=== PATIENT | male | born 1965 | race Caucasian/White ===

== ENCOUNTER 2020-07-05 13:19 | Emergency (ER) | payer MEDICAID, SELFPAY ==
[2020-07-05 13:27] VITALS: BP 115/74; PULSE 74; RESP 16; TEMP 36.7; O2SAT 95; BMI 24.3
--- NOTE | 2020-07-05 14:08 | XRR_ITS ---
PROCEDURE INFORMATION: Exam: XR Chest Exam date and time: 07/05/2020 2:39 PM Age: 55 years old Clinical indication: Chest pain; Type not specified; Patient HX: Chest and back pain for 3 days TECHNIQUE: Imaging protocol: XR of the chest. Views: 1 view. COMPARISON: No relevant prior studies available. FINDINGS: Lungs: Emphysematous change and interstitial prominence. Opacification of the right upper lobe, which can be better evaluated with CT, as clinically indicated. Pleural spaces: No significant pleural effusion. Heart/Mediastinum: No cardiomegaly. Bones/joints: Degenerative change. XR/XR chest 1V portable [id number] IMPRESSION: 1. Opacification of the right upper lobe, which can be better evaluated with CT. 2. Emphysematous change and interstitial prominence.
--- NOTE | 2020-07-05 14:08 | ECG_ITS ---
[facility] Test Date: 2020-07-05 Pat Name: Kevin Omalley Sr Department: Room: Gender: Male Doula: : 1965 Requested By: Desi Cabrera Order Number: [id number] Devin MD: TARIQ STEPHENS Measurements Intervals [place] Rate: 74 P: 75 IL: 154 QRS: 69 QRSD: 84 T: 63 QT: 390 QTc: 433 Interpretive Statements SINUS RHYTHM No previous ECG available for comparison Electronically Signed On 07-05-2020 21:24:03 CDT by TARIQ STEPHENS [id number]
--- NOTE | 2020-07-05 15:41 | W.ED.CHESTPA ---
HPI - Chest Pain General: Chief Complaint: Chest Pain Stated Complaint: NEURO SYMPTOMS X 1 WK:CP, FOGGY HEAD, Time Seen by Provider: 07/05/20 15:32 History of Present Illness: HPI narrative: 55-year-old male presents emergency room complaining of chest discomfort and feeling like he is in a fog for the last week. He states he has chest discomfort whenever he exerts himself that usually resolves within a few minutes of resting will recur again if he has any exertion this been going on for a week he has some associated shortness of breath no radiation into the neck or arms. MD complaint: chest heaviness and chest discomfort Pertinent past history: other (Hypertension) Onset (ago): week(s) (1) Timing of current episode: episodic Prior episodes: Yes Onset: during exertion Pain location: substernal and left chest Pain radiation: none Severity: moderate Quality: heaviness Relieving factors: nothing Exacerbating factors: nothing Context: recent illness Associated symptoms: Reports dyspnea; Deny abdominal pain, diaphoresis, fever(s), leg edema, nausea, palpitations, sense of impending doom, syncope or vomiting Treatment prior to arrival: aspirin Review of Systems Const: Denies: fever(s) or diaphoresis ENMT: Denies: throat pain, ear or mastoid pain, nasal discharge or nasal congestion Card: Denies: palpitations or syncope Resp: Reports: dyspnea GI: Denies: abdominal pain, nausea or vomiting : Denies: flank pain, dysuria, urinary frequency or urinary urgency Skin/Breast: Denies: rash or pruritus Physical Exam Const: COMMON NORMALS: average body habitus, patient oriented x3 and alert GENERAL APPEARANCE: cooperative, comfortable, well kempt and well developed NUTRITIONAL APPEARANCE: obese ORIENTATION/CONSCIOUSNESS: Yes awake, Yes oriented to person and Yes oriented to place HENMT: COMMON NORMALS: normocephalic, atraumatic, EAC's normal, TM's normal bilaterally, Normal external nose present, moist oral mucous membranes and oropharynx normal HEAD & SCALP: normocephalic and atraumatic NOSE: Normal external nose present EXTERNAL AUDITORY CANAL: EAC's normal TYMPANIC MEMBRANE: TM's normal bilaterally Eye: COMMON NORMALS: Equal, round and reactive pupils present, EOMs intact bilaterally, conjunctivae normal and no scleral icterus CONJUNCTIVA: Yes conjunctivae normal PUPIL: Yes Equal, round and reactive pupils present Neck/C-Spine: COMMON NORMALS: no meningeal signs Resp: COMMON NORMALS: normal respiratory effort, No retractions, No use of accessory muscles and clear to auscultation bilaterally AUSCULTATION: clear to auscultation bilaterally Cardio: COMMON NORMALS: regular rate and regular rhythm RATE: regular rate RHYTHM: regular rhythm HEART SOUNDS: no murmurs GI: COMMON NORMALS: Normal to inspection, nondistended, normoactive bowel sounds present, Soft to palpation and No hepatosplenomegaly present PALPATION: Yes Soft to palpation and Yes No hepatosplenomegaly present : COMMON NORMALS: Yes no CVA tenderness BLADDER/KIDNEY EXAM: Yes no CVA tenderness Back/Pelvis: COMMON NORMALS: no CVA tenderness LUMBAR SPINE/LOWER BACK: Yes normal to inspection Extremity: COMMON NORMALS: no clubbing, cyanosis or edema, no calf tenderness and no pedal edema Neuro: COMMON NORMALS: patient oriented x3 SENSORIUM/ORIENTATION: Yes alert, Yes oriented to person and Yes oriented to place MENINGEAL SIGNS: Yes no meningeal signs Psych: APPEARANCE: Yes well kempt Skin: COMMON NORMALS: no rashes or lesions noted and turgor normal GENERAL SKIN EXAM: no rashes or lesions noted and turgor normal Course Vital Signs: Vital signs: Vital Signs Temperature 98.1 F 07/05/20 13:27 Pulse Rate 66 07/05/20 18:11 Respiratory Rate 16 07/05/20 18:11 Blood Pressure 109/85 07/05/20 18:11 Pulse Oximetry 96 07/05/20 18:11 MDM - Chest Pain MDM Narrative: Medical decision making narrative: Reviewed the findings with the patient. Patient has right upper lobe mass causing what appears to be an obstructive pneumonia. Sats are good. He is not septic in appearance his white count is mildly elevated. We will start him on doxycycline Medrol Dosepak also encouraged him to use albuterol inhaler as needed. We will have case management get him set up to see pulmonology as soon as they are able. At the time of discharge noted that the albuterol was not on his prescription list will call that in for him. Lab Data: Labs: Lab Results 07/05/20 07/05/20 07/05/20 Range/Units 16:26 16:26 16:26 WBC 11.5 H (4.0-10.0) 10^3/ uL RBC 4.41 (4.1-5.3) 10^6/u L Hgb 11.7 (11.7-16.6) g/dL Hct 36.8 L (42.0-52.0) % MCV 83.4 (80-94) fL MCH 26.5 L (28.0-34.0) pg MCHC 31.8 (30.0-36.0) g/dL RDW 13.6 (12.1-15.1) % Plt Count 517 H (130-400) 10^3/c mm MPV 10.1 (7.4-10.4) fL Neut % (Auto) 69.9 % Lymph % (Auto) 19.6 % Dixon % (Auto) 7.8 % Eos % (Auto) 1.8 % Baso % (Auto) 0.6 % Neut # (Auto) 8.04 H (1.8-7.7) 10^3/u L Lymph # (Auto) 2.3 (0.8-4.8) 10^3/u L Dixon # (Auto) 0.9 (0.2-0.9) 10^3/u L Eos # (Auto) 0.2 (0.0-0.8) 10^3/u L Baso # (Auto) 0.1 (0.0-0.1) 10^3/u L Nucleated RBC % (a uto) 0 % Nucleated RBCs # 0.0 /100WBC Sodium 136 (136-145) mmol/L Potassium 4.0 (3.5-5.1) mmol/L Chloride 99 (98-107) mmol/L Carbon Dioxide 26 (22-29) mmol/L Anion Gap 15.0 (5-19) BUN 10 (6-20) mg/dL Creatinine 0.8 (0.7-1.2) mg/dL GFR Calculation 99.6 (90-130) mL/min Glucose 109 (65-115) mg/dL Calculated Osmolal ity 282 L (285-295) mOsm/k g Calcium 8.5 (8.5-10.5) mg/dL Total Bilirubin 0.3 (0.15-1.2) mg/dL AST 19 (0-40) U/L ALT 12 (0-41) U/L Alkaline Phosphata se 123 (40-130) IU/L Troponin T Baselin e 12 (0-15) ng/L Total Protein 7.4 (6.6-8.7) g/dL Albumin 3.2 L (3.5-5.2) g/dL Globulin 4.2 (1.3-4.6) g/dL Discharge Plan Discharge Patient Disposition: Home Clinical Impression: Lung mass, Obstructive pneumonia Condition: Stable Prescriptions: New doxycycline hyclate 100 mg capsule 100 mg PO BID 10 Days Qty: 20 RF: 0 Medrol (Abdirahman) 4 mg tablets,dose pack See Rx Instructions .ROUTE .COMPLEX Qty: 21 RF: 0 No Action losartan 50 mg Tablet 50 mg PO DAILY@1999 RF: 0 cetirizine 10 mg Tablet 10 mg PO DAILY RF: 0 metoprolol tartrate 100 mg Tablet 100 mg PO BID@ RF: 0 methadone 10 mg Tablet 10 mg PO BID@ RF: 0 isosorbide mononitrate 30 mg Tablet Extended Release 24 Hr 15 mg PO DAILY@ RF: 0 simvastatin 40 mg Tablet 40 mg PO BEDTIME@1999 RF: 0 ibuprofen 200 mg Tablet 600 mg PO BID PRN (Reason: Pain) RF: 0 aspirin 81 mg Tablet,Chewable 81 mg PO DAILY@ RF: 0 omeprazole 20 mg Tablet,Delayed Release (Dr/Ec) 20 mg PO BID@ RF: 0 Discharge Orders: Discharge ED (Routine); Ordered 07/05/20 Ordered By: Reginald Rust Referrals: Jv Robins MD [Primary Care Provider] - Discharge Diet: Usual diet Discharge Activity: Resume usual activity Patient Instructions: Opioid Safety Activity Restrictions/Additional Instructions: Case management will call to make arrangements for you to see 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
--- NOTE | 2020-07-05 16:03 | CTR_ITS ---
PROCEDURE INFORMATION: Exam: CTA Chest With Contrast Exam date and time: 07/05/2020 4:21 PM Age: 55 years old Clinical indication: Patient HX: Chest pain radiating to back x 2 days. SOB; Additional info: Dyspnea TECHNIQUE: Imaging protocol: Computed tomographic angiography of the chest with contrast. 3D rendering (Not supervised by radiologist): MIP and/or 3D reconstructed images were created by the technologist. Total images: 905 Radiation optimization: All CT scans at this facility use at least one of these dose optimization techniques: automated exposure control; mA and/or kV adjustment per patient size (includes targeted exams where dose is matched to clinical indication); or iterative reconstruction. Contrast material: OMNI 350; Contrast volume: 81 ml; Contrast route: INTRAVENOUS (IV); COMPARISON: CR XR chest 1V portable [id number] 07/05/2020 2:23 PM RADIATION DOSE METRICS: Total DLP (mGy-cm): 622.34 FINDINGS: Pulmonary arteries: No visible evidence of pulmonary embolism/pulmonary arterial thrombus. Aorta: The thoracic aorta is nonaneurysmal. Mild arteriosclerosis. Lungs: Examination reveals a large right upper lobe bulky tumor mass involving primarily the apical and posterior segments dimensions 13 cm x 10.4 cm x 11.9 cm. Surrounding peritumoral infiltrate right upper lobe with evidence of lymphangitic metastasis. Minimal involvement medial segment right middle lobe. Two subcentimeter hematogenous metastatic pulmonary nodules left lower lobe. Minimal peripheral acinar emphysema. Occlusion of the right upper lobe bronchus at its origin. Complete occlusion of the apical and posterior segment upper lobe pulmonary arteries secondary to tumor mass effect or direct invasion. Tumor surrounds the right mainstem bronchus and results in partial stenosis. Pleural spaces: Scant right pleural effusion most likely malignant. Heart: No cardiomegaly. No pericardial effusion. No visible coronary artery disease. Lymph nodes: Mediastinal and right hilar tumor lymphadenopathy. Subcarinal tumor lymphadenopathy measures 46 mm x 37 mm x 39 mm. Dominant anterior mediastinal tumor lymph node confluence measures 33 mm x 20 mm x 31 mm. Direct tumor invasion of the right supper hilum. Dominant right infrahilar tumor lymphadenopathy confluence measures 26 mm x 18 mm x 20 mm. Spleen: Rare calcified splenic granuloma of antecedent disease. Adrenal glands: Left adrenal nodule measuring 19 mm x 14 mm most likely metastatic. Right adrenal gland unremarkable. Bones/joints: No visible active or acute osseous pathology. No visible osteolytic or osteoblastic metastasis within the field of view. Soft tissues: Unremarkable. Other findings: Calcified granulomas of antecedent disease. CT/CT angio chest PE protcl [id number] IMPRESSION: 1. No visible evidence of pulmonary embolism/pulmonary arterial thrombus. 2. Examination reveals a large right upper lobe bulky tumor mass involving primarily the apical and posterior segments dimensions 13 cm x 10.4 cm x 11.9 cm. Surrounding peritumoral infiltrate right upper lobe with evidence of lymphangitic metastasis. Details in text above. 3. Mediastinal and right hilar tumor lymphadenopathy. 4. Evidence of left lower lobe hematogenous metastasis. 5. Occlusion of the right upper lobe bronchus at its origin. 6. Complete occlusion of the apical and posterior segment upper lobe pulmonary arteries secondary to tumor mass effect or direct invasion. 7. Tumor surrounds the right mainstem bronchus and results in partial stenosis. 8. Scant right pleural effusion most likely malignant. 9. Left adrenal nodule measuring 19 mm x 14 mm most likely metastatic. Radiation Dose CTDIVOL = (mGy): DLP = 622.34 (mGy-cm)
[2020-07-05 16:29] VITALS: BP 114/79; PULSE 72; RESP 22; O2SAT 95
[2020-07-05 16:33] LABS: Basophils # 0.1 10^3/uL (0.0-0.1); Basophils % 0.6 %; Eosinophils # 0.2 10^3/uL (0.0-0.8); Eosinophils % 1.8 %; Hematocrit 36.8 % (42.0-52.0); Hemoglobin 11.7 g/dL (11.7-16.6); Lymphocytes # 2.3 10^3/uL (0.8-4.8); Lymphocytes % 19.6 %; Mean Corpuscular HGB Conc 31.8 g/dL (30.0-36.0); Mean Corpuscular Hemoglobin 26.5 pg (28.0-34.0); Mean Corpuscular Volume 83.4 fL (80-94); Mean Platelet Volume 10.1 fL (7.4-10.4); Monocytes # 0.9 10^3/uL (0.2-0.9); Monocytes % 7.8 %; Neutrophils # 8.04 10^3/uL (1.8-7.7); Neutrophils % 69.9 %; Nucleated Red Blood Cells % 0 %; Platelet Count 517 10^3/cmm (130-400); Red Blood Count 4.41 10^6/uL (4.1-5.3); Red Cell Distribution Width 13.6 % (12.1-15.1); White Blood Count 11.5 10^3/uL (4.0-10.0)
[2020-07-05] MEDS: iohexol 350 mg/mL 100 mL Btl IV (17:14)
[2020-07-05 17:31] LABS: Alanine Aminotransferase 12 U/L (0-41); Albumin Level 3.2 g/dL (3.5-5.2); Alkaline Phosphatase 123 IU/L (40-130); Aspartate Amino Transferase 19 U/L (0-40); Blood Urea Nitrogen 10 mg/dL (6-20); Calcium 8.5 mg/dL (8.5-10.5); Carbon Dioxide 26 mmol/L (22-29); Chloride 99 mmol/L (98-107); Globulin 4.2 g/dL (1.3-4.6); Glomerular Filtration Rate 99.6 mL/min (90-130); Glucose 109 mg/dL (65-115); Osmolality Calculated 282 mOsm/kg (285-295); Sodium 136 mmol/L (136-145); Total Bilirubin 0.3 mg/dL (0.15-1.2); Total Protein 7.4 g/dL (6.6-8.7)
[2020-07-05 17:32] LABS: Troponin(5th) Baseline 12 ng/L (0-15)
[2020-07-05 18:11] VITALS: BP 109/85; PULSE 66; RESP 16; O2SAT 96
--- NOTE | 2020-07-05 20:08 | ECG_ITS ---
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
--- NOTE | 2020-07-06 07:49 | PC.NURSE ---
prescription called into [facility].
--- NOTE | 2020-07-06 10:34 | DCPLANNER ---
Addendum entered by Hetal Nieto 07/07/20 09:39: health spa manager called patients life partner, Hayley, gave her the appointment information for patient. Original Note: health spa manager had message to schedule a follow up appointment for patient with pulmonology for lung mass with mets on CT. health spa manager called heart care, spoke with [place], gave clinic patients information. A follow up appointment was scheduled for Thursday, July 16, 2020 at 9:[address] Olivier. health spa manager called phone number [phone], this number is not accepting calls at this time. health spa manager called phone number [phone], this is the phone number to Thai Brown, left a voicemail for patient to return case management director phone call. health spa manager then called phone number [phone], number is the number for patients kj hawkins, left a voicemail for patient to return case management director phone call.
--- NOTE | 2020-08-06 11:21 | DCPLANNER ---
Patient had a follow up appointment scheduled for 07.16.[address] Olivier at Pulmonology - patient did attend appointment.
== END 2020-07-05 18:18 | disposition home or self-care (01) ==
PROVIDERS: Physician Assistant; Emergency Provider Family Medicine; PCP Family Medicine
DX: R91.8 Other nonspecific abnormal finding of lung field (principal); J18.8 Other pneumonia, unspecified organism; Z79.82 Long term (current) use of aspirin
CPT/HCPCS: 71045; 71275; 80053; 84484; 85025; 93005; 99283; Q9967

== ENCOUNTER → 2020-07-16 09:37 | Outpatient (BNVA) | payer OTHER, SELFPAY | PROVIDERS: PCP Family Medicine; Visit Provider Internal Medicine Critical Care Medicine | DX: Z01.812 Encounter for preprocedural laboratory examination (principal); Z20.822 Contact with and (suspected) exposure to COVID-19 | CPT/HCPCS: 87635 ==

== ENCOUNTER 2020-07-20 07:34 | Day surgery (SDC) | payer MEDICAID, SELFPAY ==
[2020-07-19 09:50] VITALS: BMI 25.1
[2020-07-20] VITALS (8 sets, daily range): BP systolic 97–144; BP diastolic 65–108; PULSE 77–90; RESP 18–20; TEMP 36.4–36.9; O2SAT 97–99
[2020-07-20] MEDS: sodium chloride 0.9% 1,000 ML 30 ML IV (08:30)
--- NOTE | 2020-07-20 09:12 | W.PM.OPSUD ---
Surgery/Procedure H&P Update DATE OF PROCEDURE: July 20, 2020 DATE H&P PERFORMED: 07/16/20 H&P UPDATE INFORMATION: I have reviewed H&P completed within last 30 days, I have examined patient prior to procedure and No changes to prior documentation PREOP DIAGNOSIS: Lung cancer PLANNED PROCEDURE: Bronchoscopy with inspection of the airway, possible endobronchial biopsy, bronchoalveolar lavage, endobronchial sound guided transbronchial needle aspiration of lymph nodes and control of bleeding. Operation Date: 07/20/20 09:10 Proposed Procedures p Ebus [id number] r91.1(Not Applicable) - Biplab MD Soy
--- NOTE | 2020-07-20 09:26 | ANES.PREANE2 ---
Pre-Anesthetic Assessment Pre-Anesthetic Assessment: Height/Weight: Height 1.75 m Weight 77.111 kg Temp Pulse Resp BP Pulse Ox 97.6 F 77 18 119/79 97 07/20/20 08:18 07/20/20 08:18 07/20/20 08:18 07/20/20 08:18 07/20/20 08:18 Preop Diagnosis: Lung cancer Proposed Procedure: Operation Date: 07/20/20 09:10 Proposed Procedures p Ebus 16132 [id number] r91.1(Not Applicable) - Veronica Olivier MD Was Beta Prasanna taken within 24 hours: Yes Last intake: Intake Last Liquid Date 07/19/20 Last Liquid Time 20:00 Last Solid Date 07/19/20 Last Solid Time 20:00 Social: Social History: Tobacco and No alcohol Packs per day: 1 for 40 years Exam: Pre-Anes Outpt Exam: alert, oriented x 3, clear to auscultation bilaterally and regular rate & rhythm Airway: Submandibular: WNL Cervical ROM: WNL MP: 2 Additional comments: extremely poor dentition History/ROS: No significant history except as noted and No significant complaints Pulmonary: Pulmonary: COPD, Cough, QIU and SOB CV/HEM: CV/HEM: HTN : : None reported Hepatic: Hepatic: None reported GI: GI: None reported Metabolic: Metabolic: None reported Musc/skel: Musc/skel: None reported Neuropsych: Neuropsych: CVA Anesthetic Plan: ASA status: 4 Anesthesia: Anesthesia Evaluation and General Risk of > 500 ml blood loss (7ml/kg in children): No PFSH Anesthesia PFSH: Surgical History No significant past surgical history Family History Father Heart attack Brother Heart attack Social History Smoking and tobacco status: current every day smoker cigarettes Packs smoked per day: 1 Years cigarettes smoked: 40 Quit status (tobacco): considering quitting Second hand smoke exposure: Yes Smoking risk assessment/counseling performed?: Yes Alcohol intake: never Desire information about substance/drug rehabilitation?: No Lives independently: Yes Household members: friend(s) Marital status: Single service: No Current occupational status: employed Pets and animals: Yes History of recent travel: No Current gender identity: Male Data Anesthesia Cardiac Studies: No Data to Display
[2020-07-20] MEDS: lidocaine 1% INJ 20 mL XX (10:30)
--- NOTE | 2020-07-20 11:18 | PM.OP ---
Operative Report Date of procedure: July 20, 2020 Pre-op Diagnosis: Lung cancer Post-op diagnosis: same Brief History: This is a 55-year-old gentleman with recently identified large right upper lobe lung mass with mediastinal hilar lymphadenopathy coming in for bronchoscopic evaluation for lung cancer. Procedure: Name of the procedure: Bronchoscopy with inspection of the airway, possible bronchoalveolar lavage, endobronchial biopsies, endobronchial ultrasound-guided transbronchial needle aspiration of lymph nodes and control of bleeding. Indication: Right-sided lung mass Anesthesia: General anesthesia. Local anesthesia: The josefina in the right and left mainstem bronchi were anesthetized with 1% lidocaine, 3 mL. Description of the procedure: The procedure was explained to the patient and the consent was obtained. The patient was brought to the OR. The patient underwent endotracheal intubation for general anesthesia. Following induction of general anesthesia, the bronchoscope was advanced through the ET tube. The lower trachea appeared to be normal. The josefina was splayed. The josefina, the right and left mainstem bronchi are anesthetized with 1% lidocaine. In a systematic manner bilateral bronchial tree was then examined. The bronchoscope was advanced into the left mainstem bronchus. The left upper lobe, lingula and left lower lobe bronchi were examined up to the third subsegmental level and no abnormalities were identified. There is no endobronchial lesion, active bleeding or mucous plug. The bronchoscope was then introduced into the right mainstem bronchus. The entrance to the right upper lobe bronchus was completely occluded. Irregular mucosa was noted. The right middle lobe and lower lobe bronchi were examined up to third subsegmental level and no abnormalities were identified. Endobronchial biopsies were obtained from the occluded right upper lobe bronchus area with irregularity in the mucous membrane. Multiple samples were obtained. The endobronchial ultrasound was introduced through the ET tube. Large right hilar mass was identified. There was significant mediastinal lymphadenopathy. Fine-needle aspiration was obtained from station 7 lymph nodes. Samples: 1. The endobronchial biopsies are sent for histopathology. 2. The transbronchial needle aspiration of station 7 lymph node was sent for histopathology. Complications: There was no immediate complications.
--- NOTE | 2020-07-20 14:31 | ANE.PACU2 ---
Inpatient post-anesthesia follow up: Airway intact: Yes Vital signs: Temperature 97.6 F Pulse Rate 82 Respiratory Rate 20 Blood Pressure 117/86 Pulse Oximetry 98 Oxygen Delivery Me thod Room Air Oxygen Flow Rate 6 Fraction of Inspir ed Oxygen Hydration adequate: Yes Nausea and vomiting: No Pain level: 2 Mental status: Baseline
== END 2020-07-20 11:55 | disposition home or self-care (01) ==
PROVIDERS: PCP Family Medicine; Visit Provider Internal Medicine Critical Care Medicine
PROC: BB4BZZZ Ultrasonography of Pleura (ICD-10-PCS; principal; 2020-07-20 09:00)
PROC: 0BJ08ZZ Inspection of Tracheobronchial Tree, Via Natural or Artificial Opening Endoscopic (ICD-10-PCS; CPT 31622; 2020-07-20 09:00)
DX: C34.90 Malignant neoplasm of unspecified part of unspecified bronchus or lung (principal); J44.9 Chronic obstructive pulmonary disease, unspecified; I10 Essential (primary) hypertension; Z09 Encounter for follow-up examination after completed treatment for conditions other than malignant neoplasm; Z86.73 Personal history of transient ischemic attack (TIA), and cerebral infarction without residual deficits; F17.210 Nicotine dependence, cigarettes, uncomplicated
CPT/HCPCS: 31625; 31652; 80500; 88305; 96360; 96361; J0330; J1100; J2704; J3010; J7030

== ENCOUNTER 2020-07-26 08:51 | Outpatient (CLI) | payer MEDICAID, SELFPAY ==
--- NOTE | 2020-07-26 16:50 | ONC CON_ITS ---
Dr. Lunsford New Patient Note Patient: Kevin Omalley Sr Unit #: [id number]: 1965 Dicatated By: Refugio Lunsford M.D.Date of Visit: July 26, 2020 Onc MED New Patient/Consult Referring Physician: Dr. TENNILLE ALVARADO M.D. History of Present Illness: ,Mr. Kevin Omalley is a 55-year-old gentleman, with a 20+ year history of heavy smoking still smoke about pack a day, about 30 pound weight loss over the period of 3 months, went to [facility] on July 05, 2020 with progressive dyspnea on exertion right chest discomfort/pain and foggy head-like feeling, patient on methadone for 5 to 8 years for chronic/hip pains and part of evaluation he underwent CTA chest on July 05, 2020 which showed large right upper lobe bulky tumor mass involving primarily apical and posterior segments dimension 13 cm x 10.4 x 11.9 cm. Surrounding peritumoral infiltrate right upper lobe with evidence of lymphangitic spread metastatic disease. Mediastinal and right hilar lymphadenopathy. And 2 subcentimeter hematogenous metastatic pulmonary nodules in the left lower lobe. And left adrenal nodule measuring 19 x 14 mm most likely metastatic., Patient was referred to pulmonology and on July 20, 2020 he underwent bronchoscopy which showed there is a no endobronchial lesion but entrance to the right upper lobe bronchus was completely occluded transbronchial biopsy and lymph node station 7 endoscopic ultrasound guided biopsy was obtained which confirmed non-small cell carcinoma, immunohistochemistry is pending Patient denies alcohol use but used to drink heavily but quit alcohol about 15 years ago. Patient denies any night sweats, denies any dysphagia, denies any right eye weakness, denies any blurred vision or double vision Past Medical History: Mr. Shahram Chan's medical history consists of hypertension. Past Surgical History: Mr. Shahram Chan's surgical/procedural history consists of bronchoscopy. Medications: Aspirin 81 1 Tablet (of 81 mg) Tablet, chewable Oral daily, Isosorbide Mononitrate ER 1 Tablet (of 30 mg) Tablet SR 24 HR Oral daily, Losartan Potassium 1 Tablet (of 50 mg) Oral daily, Methadone HCl 1 Tablet (of 10 mg) Oral b.i.d., Metoprolol Tartrate 1 Tablet (of 100 mg) Oral b.i.d., Omeprazole 1 Capsule (of 20 mg) Capsule Delayed Release Oral b.i.d., Simvastatin 1 Tablet (of 40 mg) Oral daily Allergies: No Known Allergies. Social History: Mr. Shahram Chan is . He is an occasional smoker who has smoked for 41 years. He has no history of drinking. He has indicated exposure to the following products: cigarettes. Family History: There is no documented family history. Review Of Symptoms: Review of Systems is not available for this patient. Vital Signs: Performed on July 26, 2020 10:49: 5, 24.39, 1.95 sq.m, 70 in, 97 %, 80 /min, 18 /min, 106/74 mm(hg), 97.4 F (LOW), and 170.0 lbs (HIGH). Performance Status: 1 - No physically strenuous activity, but ambulatory and able to carry out light or sedentary work (e.g. office work, light house work). (ECOG) Physical Examination: ENMT - No mouth sores, no thrush, no jaundice, Respiratory - Poor air entry otherwise clear, Cardiovascular - Regular rate and rhythm of heart, Abdomen - Soft, bowel sounds present, Extremities - No visible edema. Lab/Imaging: Most recent lab results are not available for this patient. Impression: Non-small cell lung cancer involving right upper lung per bronchoscopy done on July 20, 2020 confirmed non-small cell carcinoma involving right upper lobe and station 7 lymph node, immunohistochemistry is pending CTA chest done on July 05, 2020 showed right upper lobe bulky tumor mass involving apical and posterior segments dimension 13 x 10.4 x 11.9 cm. Surrounding peritumoral infiltrate right upper lobe with evidence of lymphangitic metastatic disease. 2 subcentimeter hematogenous metastatic pulmonary nodules left lower lobe. Mediastinal and right hilar lymphadenopathy, subcarinal tumor lymphadenopathy measuring 4.6 x 3.7 x 3.9 cm. Left adrenal nodule measuring 19 x 14 mm most likely metastatic disease. Chronic smoking over 20 years, still smoking 1 pack a day History of alcohol abuse, quit 15 years ago. Chronic back pain and hip pain, on methadone per PMD Plan: Discussed with patient regarding his disease status, his CTA chest shows bulky disease in the right upper lobe and extensive mediastinal lymphadenopathy and 2 subcentimeter nodules in the left lower lobe and left adrenal mass, concerned about metastatic disease, at this point we will consider staging work-up with CT PET scan and MRI scan of the brain if it confirms metastatic disease then will consider molecular profiling as well as PD-L1 status on the other hand if there is no evidence of metastatic disease, then will consider combined chemoradiation, in the meantime we will request Port-A-Cath placement Patient was advised to quit smoking and was offered any assistance he may need Patient return to clinic after CT PET scan/MRI scan of brain done for further discussion Signed By: Refugio Lunsford M.D. <<Signature on File>>
== END 2020-07-26 08:52 | disposition home or self-care (01) ==
LOC: ONCMED 08:53
PROVIDERS: PCP Family Medicine; Visit Provider Internal Medicine Hematology & Oncology
DX: C34.11 Malignant neoplasm of upper lobe, right bronchus or lung (principal); C79.31 Secondary malignant neoplasm of brain; F17.210 Nicotine dependence, cigarettes, uncomplicated; F10.11 Alcohol abuse, in remission; G89.29 Other chronic pain; M54.5 Low back pain; M25.551 Pain in right hip; M25.552 Pain in left hip; Z79.899 Other long term (current) drug therapy
CPT/HCPCS: 99205

== ENCOUNTER → 2020-07-30 12:47 | Outpatient (BNVA) | payer OTHER, SELFPAY | PROVIDERS: PCP Family Medicine; Visit Provider Surgery | DX: Z01.812 Encounter for preprocedural laboratory examination (principal); Z20.822 Contact with and (suspected) exposure to COVID-19 | CPT/HCPCS: 87635 ==

== ENCOUNTER 2020-08-04 07:06 | Day surgery (SDC) | payer MEDICAID, SELFPAY ==
[2020-08-03 14:00] VITALS: BMI 24.3
[2020-08-04] VITALS (7 sets, daily range): BP systolic 114–143; BP diastolic 80–94; PULSE 64–75; RESP 16–18; TEMP 36.2–36.6; O2SAT 93–100
--- NOTE | 2020-08-04 | SCC_ITS ---
Procedure Done: Placement of PowerPort in the left subclavian vein Fluoroscopic guidance and interpretation for placement of catheter 31.2 seconds of fluoroscopic guidance, for a cumulative dose of 4.45 mGy, was provided to Dr. Aguirre by the radiology department. C-arm images of the chest were saved for the patient's permanent record. [facility]
--- NOTE | 2020-08-04 07:54 | SC_ITS ---
WS: [id number] Exam: C-arm FL for CVA [id number] Date/Time of Exam: 08/04/2020 7:54 AM Reason For Exam: PORT PLACEMENT 2 AP C-arm images of the upper left chest are submitted for evaluation. A left subclavian port has been placed and appears to end in the lower one third of the SVC in good p osition. SC/C-arm FL for CVA [id number] IMPRESSION: 1. Satisfactory placement of left subclavian port which appears to end in the l ower one third of the SVC.
[2020-08-04] MEDS: sodium chloride 0.9% 1,000 ML 30 ML IV (08:05)
--- NOTE | 2020-08-04 08:26 | W.PM.OPSUD ---
Surgery/Procedure H&P Update DATE OF PROCEDURE: August 04, 2020 DATE H&P PERFORMED: 07/30/20 H&P UPDATE INFORMATION: I have reviewed H&P completed within last 30 days, I have examined patient prior to procedure and No changes to prior documentation PREOP DIAGNOSIS: lung cancer PLANNED PROCEDURE: Operation Date: 08/04/20 09:05 Proposed Procedures p Portacath Placement 36297 c34.91(Not Applicable) - Gregory Aguirre MD
--- NOTE | 2020-08-04 08:38 | ANES.PREANE2 ---
Pre-Anesthetic Assessment Pre-Anesthetic Assessment: Height/Weight: Height 1.78 m Weight 77.111 kg Temp Pulse Resp BP Pulse Ox 97.1 F L 70 18 143/94 97 08/04/20 07:52 08/04/20 07:52 08/04/20 07:52 08/04/20 07:52 08/04/20 07:52 Preop Diagnosis: lung cancer Proposed Procedure: Operation Date: 08/04/20 09:05 Proposed Procedures p Portacath Placement 02033 c34.91(Not Applicable) - Gregory Aguirre MD Familial anesthetic complications: none Was Beta Prasanna taken within 24 hours: Yes Was Clonidine taken within 24 hours: N/A Last intake: Intake Last Liquid Date 08/04/20 Last Liquid Time 06:00 Last Solid Date 08/03/20 Last Solid Time 21:00 Social: Social History: Tobacco and No alcohol Exam: Pre-Anes Outpt Exam: alert, oriented x 3, clear to auscultation bilaterally and regular rate & rhythm Airway: Cervical ROM: WNL MP: 3 Dentition: Chipped (multiple broken teeth) Pulmonary: Comments: R lung cancer CV/HEM: CV/HEM: HTN Metabolic: Metabolic: Hyperlipidemia Neuropsych: Neuropsych: 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, some residual R visual field deficit) Anesthetic Plan: ASA status: 3 Anesthesia: MAC Risk of > 500 ml blood loss (7ml/kg in children): No Meds/Allergies Current Medications: Current Medications Generic Name Dose Route Start Last Admin Trade Name Freq PRN Reason Stop Dose Admin Sodium Chloride 1,000 mls @ 30 ml s/hr 08/04/20 07:45 08/04/20 08:05 Sodium Chloride 0.9% IV 08/05/20 07:44 30 mls/hr .Q24H KORTNEY Administration PFSH Anesthesia PFSH: Medical History (Updated 07/30/20 @ 12:18 by Gregory Aguirre MD) Cancer of right lung GERD (gastroesophageal reflux disease) History of TIA (transient ischemic attack) HTN (hypertension) Hyperlipidemia Surgical History (Updated 07/30/20 @ 12:21 by Gregory Aguirre MD) History of lung biopsy 2020 S/P bronchoscopy Family History Father Heart attack Brother Heart attack Social History (Reviewed 07/30/20 @ 11:41 by TIARRA Mac Smoking and tobacco status: current every day smoker cigarettes Packs smoked per day: 1 Years cigarettes smoked: 40 Quit status (tobacco): considering quitting Second hand smoke exposure: Yes Smoking risk assessment/counseling performed?: Yes Alcohol intake: never Desire information about substance/drug rehabilitation?: No Lives independently: Yes Household members: friend(s) Marital status: Single service: No Current occupational status: employed Pets and animals: Yes History of recent travel: No Current gender identity: Male Data Anesthesia Cardiac Studies: No Data to Display
[2020-08-04] MEDS: lidocaine 1% INJ 20 mL INJECTION (09:36)
[2020-08-04] MEDS: heparin, porcine 1,000 unit/mL INJ 10 mL 10000 UNIT INJECTION (09:42)
--- NOTE | 2020-08-04 10:04 | PM.OP ---
Operative Report Date of procedure: August 04, 2020 Pre-op Diagnosis: Right lung cancer Post-op diagnosis: same Procedure Done: Placement of PowerPort in the left subclavian vein Fluoroscopic guidance and interpretation for placement of catheter Pathology: none sent Surgeon: Gregory Aguirre Anesthesia: MAC Condition: stable Disposition: PACU Procedure: The patient was taken to the Operating Room and the chest and neck bilaterally were prepped and draped in a sterile manner after the antibiotic had been administered and shoulder rolls had been placed. A total of 10 mL of 1% lidocaine with 0.5% Marcaine was infiltrated under the clavicle on the left side at the site of the planned entry into the subclavian vein. An introducer needle was then used to access the subclavian vein under the clavicle and after withdrawing blood syringe was removed and a guidewire passed under fluoroscopy into the superior vena cava. The site of the planned port was then marked on the chest and a 15 blade was used to make a 3 cm skin incision this was extended into the subcutaneous tissue using electrocautery and a subcutaneous pocket over the pectoralis fascia was created 2-0 Vicryl suture was used to suture the port to the pectoral fascia in the pocket on 3 sides. The catheter, after having been flushed with hep saline, was attached to the tunneler and a tunnel created between the port site and the subclavian vein entry site. Under fluoroscopy the dilator sheath was passed over the guidewire into the proximal superior vena cava. The inner dilator was removed and the sheath left behind and~ the catheter was introduced through the peel-away sheath with the tip in the superior vena cava. The peel-away sheath was removed. The proximal end of the catheter was cut to the right size and was attached to the port. Using a Jensen needle the port was accessed, it withdrew blood easily and flushed easily. A final 5cc of heparin was used to flush the PowerPort. The subcutaneous tissue was approximated using interrupted 3-0 Vicryl sutures and the skin at the introducer site and the port site was closed using subcuticular running 4-0 Monocryl sutures. Surgical glue was applied and the patient was stable throughout the procedure. Fluoroscopic guidance and interpretation was performed for introduction of the guidewire in the left subclavian vein, passage of dilator and placement of catheter tip in the distal superior vena cava.
--- NOTE | 2020-08-04 10:10 | SUR.PHASEI ---
PT SLEEPS QUIETLY, WITH GOOD RESP EFFORT , NO DISTRESS VSS LT CHEST WITH 2 SITES WITH EXOFIN D/I MONITOR SR NO ECTOPY.
[2020-08-04] MEDS: HYDROcodone-acetaminophen 5-325 mg Tablet 1 TAB PO (10:45)
--- NOTE | 2020-08-04 13:55 | ANE.PACU2 ---
Inpatient post-anesthesia follow up: Airway intact: Yes Vital signs: Temperature 97.1 F Pulse Rate 75 Respiratory Rate 18 Blood Pressure 123/85 Pulse Oximetry 93 Oxygen Delivery Me thod Room Air Oxygen Flow Rate 6 Fraction of Inspir ed Oxygen Hydration adequate: Yes Nausea and vomiting: No Pain level: 2 Mental status: Baseline
== END 2020-08-04 11:05 | disposition home or self-care (01) ==
PROVIDERS: PCP Family Medicine; Visit Provider Surgery
PROC: (CPT 36561; principal; 2020-08-04 08:55)
DX: C34.90 Malignant neoplasm of unspecified part of unspecified bronchus or lung (principal); I10 Essential (primary) hypertension; E78.5 Hyperlipidemia, unspecified; Z86.73 Personal history of transient ischemic attack (TIA), and cerebral infarction without residual deficits; F17.210 Nicotine dependence, cigarettes, uncomplicated
CPT/HCPCS: 36561; 77001; C1788; J0690; J1644; J2704; J3010; J3490; J7030

== ENCOUNTER 2020-08-05 11:43 | Outpatient (CLI) | payer MEDICAID, SELFPAY ==
--- NOTE | 2020-08-05 11:45 | MR_ITS ---
WS: [id number] MRI BRAIN WITH AND WITHOUT CONTRAST HISTORY: BLURRED Vision; lung CA COMPARISON: 05/18/2014 TECHNIQUE: Multiplanar imaging performed through the brain with MultiHance 15 ml's IV. There is a large amount of vasogenic edema throughout the RIGHT cerebrum. Metastatic lesions are pres ent bilaterally. The largest mass centered in the mid RIGHT temporal lobe measures 2.0 x 2.2 x 2.1 cm . Central area of necrosis with thick rim and a large amount of edema. The next largest lesion is tow ards the RIGHT frontal vertex measuring 1.4 x 1.4 x 1.5 cm. There are numerous additional subcentimet er lesions identified. 4 mm anterior RIGHT frontal lobe metastatic site. Possible LEFT basal ganglia 3 mm metastatic site. Medial superior LEFT cerebellar metastatic site measures 6 mm. Indeterminate fo r metastatic lesion in the anterior RIGHT cerebellum measuring 5 mm. Posterior RIGHT cerebellar metas tatic site at 4 mm. There is shift of the midline structures to the LEFT of midline by 6.4 mm. Significant mass effect up on the RIGHT lateral ventricle but no temporal lobe dilatation. Paranasal sinuses: Well aerated with no significant disease. Mastoid air cells: Normal. Calvarium and scalp: Normal. MR/MR head wo/w con [id number] IMPRESSION: 1. Numerous metastatic lesions within the brain. Largest lesions are in the RI GHT temporal and RIGHT frontal lobes. 2. Large amount of vasogenic edema in the RIGHT cerebrum resulting in 6.4 mm o f midline shift to the LEFT. RIGHT lateral ventricle is slitlike but there is n o ventriculomegaly. 3. Additional smaller, subcentimeter metastatic lesions within the brain. Notified Refugio Lunsford MD at 08/05/2020 1:10 PM.
[2020-08-05] MEDS: gadobenate dimeglumine 20 mL vial IV (12:34)
--- NOTE | 2020-08-05 16:57 | N.ONRAD NP_ITS ---
Radiation Oncology New Patient Visit Patient: Kevin Omalley Sr MR#: [id number] : 1965> Age: 55> Sex: Male> Dictated by: Dr. Shadi Wolfe Date of Service: 08/05/2020 Referring Physician(s) : Dr. Lunsford Diagnosis: C34.11 - malignant neoplasm of upper lobe, right bronchus or lung, Diagnosed 07/26/2020 (active). Radiotherapy to date: Summary > No prior radiation therapy. Chief Complaint / History of Present Illness: Stage IV ([id number]) non-small cell carcinoma of the right upper lobe. He underwent bronchoscopy and biopsy confirming this. Staging MRI scan of the brain obtained earlier today revealed significant intracranial metastatic disease. We were asked to see him regarding the role of palliative radiation therapy in his care Mr. Kwong is a 55-year-old chronic smoker . Who presented to the emergency room on July 05, 2020 for shortness of breath and right chest pain as well as mental status changes. 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 He also noted visual changes and occasional headaches. He experienced a 25 pound weight loss over 2-month period. He also noted dropping things with his left hand as well as fatigue and some staggering of his gait. Initial evaluation included a CT scan of the chest on July 05, 2020 which revealed a 13 cm mass in the right upper lobe with some surrounding infiltrate with direct extension into the mediastinum and separate subcarinal adenopathy and was to contralateral left lung nodules and left adrenal nodularity. He underwent bronchoscopy on July 20, 2020 right upper lobe bronchus was completely occluded endobronchial biopsy of lymph node ultrasound-guided biopsy confirmed non-small cell carcinoma. Further studies as pending. MRI of the brain just obtained earlier today revealed the 6 intracranial anterior cerebral and cerebellar metastases with small lesion seen in both cerebellum small central pontine lesion dominant large right temporal lobe lesion measuring 2.2 cm in maximal dimension with significant peritumoral edema effacement of the ventricle. Medications: Aspirin 81, isosorbide Mononitrate ER, losartan Potassium, methadone HCl, metoprolol Tartrate, omeprazole, simvastatin. Allergies: No Known Allergies Medical History: - Hypertension. No history of collagen vascular disease. No previous radiation therapy. Surgical History: Bronchoscopy. Family History: Not obtained Social History: Last screened on 07/26/2020 - Current some day smoker for 41 years. Last screened on 07/26/2020 - Never drank. Patient indicated use of the following products: cigarettes. He is has smoked from age 13 to age 55 up to 2 packs a day. Lives with a girlfriend. His girlfriend is currently under treatment here for non-small cell lung cancer. Current Complaints / Review of Systems: . Vital Signs: Performed on 08/05/2020 3:51 PM Height - 70.00 in, Weight - 168.8 lbs (low), BSA - 1.94 sq.m, BMI - 24.22, Temperature - 97.3 f (low), Pulse - 68 /min, Respiration - 18 /min, O2 Sat - 96 %, Pain - 7, BP - 107/ 70 mm(hg), Performed on 08/05/2020 3:57 PM BMI - 24.22 kg/m2 (high), Height - 70.00 in, Weight - 168.8 lbs, Temperature - 97.3 f, Pulse - 68, Respiration - 18, O2 Sat - 96 %, Pain - 7 and BP - 107/ 70 mm(hg). Physical Exam: Elderly appearing gentleman for his age. H EENT examination revealed few decaying teeth in his mandible. He had no cervical or supraclavicular adenopathy. Lungs were clear with diminished breath sounds on the right no wheezes or rhonchi heart was regular abdominal examination unremarkable. Neurologic exam he was appropriate and oriented gait was slow with no ataxia strength in all extremities were symmetric and complete. Performance Status: Pathology: Primary, c34.11 - malignant neoplasm of upper lobe, right bronchus or lung, Diagnosed 07/26/2020 (active). Lab: Imaging: See HPI PET CT scan obtained on July 31, 2020 revealed a massive right upper lobe mass measuring 12.6 cm in maximal dimension with an SUV of 11.2 FDG +1 cm left lower lobe 7 mm left left lower lobe and another 7 mm left lower lobe nodule representing contralateral metastatic disease there was bulky subcarinal adenopathy left adrenal gland lobe revealed low-grade uptake equivocal for metastatic involvement. Impression: In summary my impression is that of stage IV (T4 N3 M1) non-small cell carcinoma the right upper lobe with bulky primary and significant intracranial metastatic disease at diagnosis. At this time in light of his neurologic symptoms I do recommend initiating steroids at a moderate dose we will now begin dexamethasone 4 mg twice daily to stabilize him over the 3-day weekend. In light of the size and number of the metastatic brain lesions he is best treated with whole brain radiation over a 10-day period. Following this he will return to Dr. Lunsford to address systemic therapy. In the event he has a poor response to systemic treatment or has significant symptomatic progression in the right lung primary palliative radiation to the lung could be considered at anytime in the future as well I discussed the treatable but incurable nature of his presentation. I recommended that he stop smoking as it will assist in his response to treatment. I also discussed the overall need for advanced directives. I recommended that he pursue a conservative approach and ultimately choose to have a no CODE STATUS once he has discussed this with his family. He will now return to Dr. Young on Sunday for simulation followed by 10-day course of whole brain radiation. I discussed this with Dr. Lunsford as well as the patient and his sister. Plan: Signed by: 08/05/2020 4:55:31 PM <<Signature on File>> Time spent with patient: CPT Code: CPT Code:
--- NOTE | 2020-08-06 13:14 | ONC FU_ITS ---
Dr. Lunsford follow up note Patient: Kevin Omalley Sr Unit #: [id number]: 1965 Dicatated By: Refugio Lunsford M.D.Date of Visit:August 05, 2020 Onc Med Follow-up/Prog Note History of Present Illness: ,Mr. Kevin Omalley is a 55-year-old gentleman, with a 20+ year history of heavy smoking still smoke about pack a day, about 30 pound weight loss over the period of 3 months, went to [facility] [place] [facility] on July 05, 2020 with progressive dyspnea on exertion right chest discomfort/pain and foggy head-like feeling, patient on methadone for 5 to 8 years for chronic/hip pains and part of evaluation he underwent CTA chest on July 05, 2020 which showed large right upper lobe bulky tumor mass involving primarily apical and posterior segments dimension 13 cm x 10.4 x 11.9 cm. Surrounding peritumoral infiltrate right upper lobe with evidence of lymphangitic spread metastatic disease. Mediastinal and right hilar lymphadenopathy. And 2 subcentimeter hematogenous metastatic pulmonary nodules in the left lower lobe. And left adrenal nodule measuring 19 x 14 mm most likely metastatic., Patient was referred to pulmonology and on July 20, 2020 he underwent bronchoscopy which showed there is a no endobronchial lesion but entrance to the right upper lobe bronchus was completely occluded transbronchial biopsy and lymph node station 7 endoscopic ultrasound guided biopsy was obtained which confirmed non-small cell carcinoma, immunohistochemistry , Confirmed TTF-1 positive, Napsin positive, chromogranin A negative, consistent with primary pulmonary adenocarcinoma Patient denies alcohol use but used to drink heavily but quit alcohol about 15 years ago. Patient denies any night sweats, denies any dysphagia, denies any right eye weakness, denies any blurred vision or double vision Underwent Staging CT PET scan on July 31, 2020 which showed right upper lobe, 9.2 x 12.6 x 11.9 cm mass with SUV of 11.2. Complete occlusion of right upper lobe with postobstructive atelectasis. An FDG +1 cm left lower lobe, 7 mm anterior left lower lobe, 7 mm left upper lobe nodule represent contralateral metastatic disease. Malignant mediastinal adenopathy is present in the subcarinal, right prevascular, right paratracheal, subaortic territories. FDG positive lymph nodes in the right supraclavicular, right cervical level 4 regions of head and neck are consistent with distant mets. Low-grade activity in the left adrenal gland metastatic disease is not excluded. MRI scan of the brain done on August 05, 2020 shows large amount of vasogenic edema throughout right cerebrum. Metastatic lesions are present bilaterally. Largest mass centered in the right temporal lobe measuring 2 x 2.2 x 2.1 cm with a central area of necrosis and numerous additional subcentimeter lesions identified. Came for follow-up, denies any specific complaints, no hemoptysis or hematemesis, no fever chills, no nausea or vomiting, no headaches blurred vision or double vision no focal weakness, patient is here to discuss about his staging CT PET scan as well as MRI scan of the head Medications: Aspirin 81 1 Tablet (of 81 mg) Tablet, chewable Oral daily, Isosorbide Mononitrate ER 1 Tablet (of 30 mg) Tablet SR 24 HR Oral daily, Losartan Potassium 1 Tablet (of 50 mg) Oral daily, Methadone HCl 1 Tablet (of 10 mg) Oral b.i.d., Metoprolol Tartrate 1 Tablet (of 100 mg) Oral b.i.d., Omeprazole 1 Capsule (of 20 mg) Capsule Delayed Release Oral b.i.d., Simvastatin 1 Tablet (of 40 mg) Oral daily Allergies: No Known Allergies. Review of Systems: Review of Systems is not available for this patient. Vital Signs: Performed on August 05, 2020 15:57 Height - 70.00 in Weight - 168.8 lbs Temperature - 97.3 F Pulse - 68 Respiration - 18 BP - 107/70 mm(hg) O2 Sat - 96 % Pain - 7 Performed on August 05, 2020 15:57 BMI - 24.22 kg/m2 (HIGH) Performed on August 05, 2020 15:51 Height - 70.00 in Weight - 168.8 lbs (LOW) BSA - 1.94 sq.m BMI - 24.22 Temperature - 97.3 F (LOW) Pulse - 68 /min Respiration - 18 /min BP - 107/70 mm(hg) O2 Sat - 96 % Pain - 7 Performance Status: 0 - Fully active, able to carry on all predisease activities without restrictions. (ECOG) Physical Examination: ENMT - No mouth sores, no thrush, no jaundice, Respiratory - Lungs are clear to auscultation, Cardiovascular - Regular rate and rhythm of heart, Abdomen - Soft, bowel sounds present, Extremities - No visible edema or focal weakness. Lab/Imaging: Most recent lab results are not available for this patient. 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 Right supraclavicular and jugulodigastric malignant lymph nodes questionable left adrenal uptake and MRI scan of the brain done on August 05, 2020 showed numerous metastatic lesions within the brain, largest lesion in the right temporal and right frontal lobes. Large amount of vasogenic edema in the right cerebellum resulting in 6.4 mm midline shift to the left. Additional smaller, subcentimeter left-sided lesion within the brain. Non-small cell lung cancer involving right upper lung per bronchoscopy done on July 20, 2020 confirmed non-small cell carcinoma involving right upper lobe and station 7 lymph node, immunohistochemistry Confirmed pulmonary adenocarcinoma CTA chest done on July 05, 2020 showed right upper lobe bulky tumor mass involving apical and posterior segments dimension 13 x 10.4 x 11.9 cm. Surrounding peritumoral infiltrate right upper lobe with evidence of lymphangitic metastatic disease. 2 subcentimeter hematogenous metastatic pulmonary nodules left lower lobe. Mediastinal and right hilar lymphadenopathy, subcarinal tumor lymphadenopathy measuring 4.6 x 3.7 x 3.9 cm. Left adrenal nodule measuring 19 x 14 mm most likely metastatic disease. Chronic smoking over 20 years, still smoking 1 pack a day History of alcohol abuse, quit 15 years ago. Chronic back pain and hip pain, on methadone per PMD Plan: Discussed with patient regarding his staging CT PET scan as well as MRI scan of the brain which confirmed patient has metastatic adenocarcinoma with extensive brain mets as well as questionable left adrenal gland and extensive cervical and mediastinal lymphadenopathy and left lung metastatic disease, patient and his was informed that his disease is not curable rather controllable, at this point will consider molecular profiling to identify targetable mutation and also PD-L1 status Because of extensive brain mets although patient is not symptomatic, will refer him to radiation oncology [facility] for evaluation for whole brain radiation therapy, patient return to clinic in 3 weeks hopefully by that time will have his molecular profiling and PD-L1 status reports available to decide about systemic therapy. Signed By: Refugio Lunsford M.D. <<Signature on File>>
== END 2020-08-05 11:44 | disposition home or self-care (01) ==
LOC: RADSHAW 11:44 → ONCMED 14:23
PROVIDERS: PCP Family Medicine; Visit Provider Internal Medicine Hematology & Oncology
DX: C34.11 Malignant neoplasm of upper lobe, right bronchus or lung (principal); C79.31 Secondary malignant neoplasm of brain; C79.72 Secondary malignant neoplasm of left adrenal gland; F17.210 Nicotine dependence, cigarettes, uncomplicated; F10.11 Alcohol abuse, in remission; G89.29 Other chronic pain; M25.551 Pain in right hip; M25.552 Pain in left hip; Z79.899 Other long term (current) drug therapy
CPT/HCPCS: 70553; 99205; 99214; A9577

== ENCOUNTER 2020-09-02 05:29 | Outpatient (RCR) | payer MEDICAID, SELFPAY ==
--- NOTE | 2020-08-10 | CT_ITS ---
Radiation Therapy Planning CT images; total exam DLP: 354.10 mGy-cm MTDD
--- NOTE | 2020-08-16 09:07 | ONCRAD TMN_ITS ---
Radiation Oncology Treatment Management Note Patient Name: Kevin Omalley Sr Date of : 1965 Date of Service: 08/16/2020 Attending Physician: Naseem Young M.D. Kevin Kwong Sr is a 55 year old white male recently diagnosed with non-small cell lung cancer and brain metastases. The patient has received 9 Gy of a prescribed 30 Nair with a 3-dimensional conformal radiotherapy plan utilizing a half beam block treatment technique with opposed lateral portal jauregui. Upon review of systems, he denied any neurological complaints. He has morning headaches. On physical examination, the patient weighed 170 lbs. His temperature was 97.6 ???F with a blood pressure of 116/76 mmHg. His pulse was 67 bpm and his respiratory rate was 20. Cranial nerves were intact. There was no thrush in the oropharynx. Continue whole brain radiotherapy as prescribed. Signed by: Dr. Naseem Young 08/16/2020 9:06:46 AM
--- NOTE | 2020-08-23 10:05 | ONCRAD TMN_ITS ---
Radiation Oncology Treatment Management Note Patient Name: Kevin Omalley Sr Date of : 1965 Date of Service: 08/23/2020 Attending Physician: Naseem Young M.D. Kevin Kwong Sr is a 55 year old white male recently diagnosed with non-small cell lung cancer and brain metastases. The patient has received 24 Gy of a prescribed 30 Nair with a 3-dimensional conformal radiotherapy plan utilizing a half beam block treatment technique with opposed lateral portal jauregui. Upon review of systems, he denied any neurological complaints. On physical examination, the patient weighed 158 lbs. His temperature was 97.6 ???F with a blood pressure of 114/86 mmHg. His pulse was 86 bpm and his respiratory rate was 20. Cranial nerves were intact. There was no thrush in the oropharynx. Continue whole brain radiotherapy as planned. I will decrease the glucocorticoid to once daily. Signed by: Dr. Naseem Young 08/23/2020 10:03:24 AM
[2020-09-02 08:54] LABS: Hemoglobin 11.7 g/dL (11.7-16.6); Lymphocytes # 0.6 10^3/uL (0.8-4.8); Lymphocytes % 4.9 %; Mean Corpuscular HGB Conc 31.6 g/dL (30.0-36.0); Mean Corpuscular Hemoglobin 27.7 pg (28.0-34.0); Mean Corpuscular Volume 87.5 fL (80-94); Mean Platelet Volume 10.3 fL (7.4-10.4); Monocytes # 0.2 10^3/uL (0.2-0.9); Monocytes % 1.7 %; Neutrophils # 10.83 10^3/uL (1.8-7.7); Neutrophils % 92.6 %; Nucleated Red Blood Cells % 0 %; Platelet Count 209 10^3/cmm (130-400); Red Blood Count 4.23 10^6/uL (4.1-5.3); Red Cell Distribution Width 17.9 % (12.1-15.1); White Blood Count 11.7 10^3/uL (4.0-10.0)
[2020-09-02 09:20] LABS: Alanine Aminotransferase 33 U/L (0-41); Albumin Level 3.2 g/dL (3.5-5.2); Alkaline Phosphatase 86 IU/L (40-130); Anion Gap 15.3 (5-19); Aspartate Amino Transferase 26 U/L (0-40); Blood Urea Nitrogen 24 mg/dL (6-20); Calcium 8.7 mg/dL (8.5-10.5); Carbon Dioxide 24 mmol/L (22-29); Chloride 98 mmol/L (98-107); Globulin 2.8 g/dL (1.3-4.6); Glomerular Filtration Rate 62.4 mL/min (90-130); Glucose 149 mg/dL (65-115); Osmolality Calculated 283 mOsm/kg (285-295); Potassium 4.3 mmol/L (3.5-5.1); Sodium 133 mmol/L (136-145); Total Bilirubin 0.2 mg/dL (0.15-1.2)
--- NOTE | 2020-09-02 10:39 | ONC FU_ITS ---
Dr. Lunsford follow up note Patient: Kevin Omalley Sr Unit #: [id number]: 1965 Dicatated By: Refugio Lunsford M.D.Date of Visit:Sep 02, 2020 Onc Med Follow-up/Prog Note History of Present Illness: ,Mr. Kevin Omalley is a 55-year-old gentleman, with a 20+ year history of heavy smoking still smoke about pack a day, about 30 pound weight loss over the period of 3 months, went to [facility] on July 05, 2020 with progressive dyspnea on exertion right chest discomfort/pain and foggy head-like feeling, patient on methadone for 5 to 8 years for chronic/hip pains and part of evaluation he underwent CTA chest on July 05, 2020 which showed large right upper lobe bulky tumor mass involving primarily apical and posterior segments dimension 13 cm x 10.4 x 11.9 cm. Surrounding peritumoral infiltrate right upper lobe with evidence of lymphangitic spread metastatic disease. Mediastinal and right hilar lymphadenopathy. And 2 subcentimeter hematogenous metastatic pulmonary nodules in the left lower lobe. And left adrenal nodule measuring 19 x 14 mm most likely metastatic., Patient was referred to pulmonology and on July 20, 2020 he underwent bronchoscopy which showed there is a no endobronchial lesion but entrance to the right upper lobe bronchus was completely occluded transbronchial biopsy and lymph node station 7 endoscopic ultrasound guided biopsy was obtained which confirmed non-small cell carcinoma, immunohistochemistry , Confirmed TTF-1 positive, Napsin positive, chromogranin A negative, consistent with primary pulmonary adenocarcinoma Patient denies alcohol use but used to drink heavily but quit alcohol about 15 years ago. Patient denies any night sweats, denies any dysphagia, denies any right eye weakness, denies any blurred vision or double vision Underwent Staging CT PET scan on July 31, 2020 which showed right upper lobe, 9.2 x 12.6 x 11.9 cm mass with SUV of 11.2. Complete occlusion of right upper lobe with postobstructive atelectasis. An FDG +1 cm left lower lobe, 7 mm anterior left lower lobe, 7 mm left upper lobe nodule represent contralateral metastatic disease. Malignant mediastinal adenopathy is present in the subcarinal, right prevascular, right paratracheal, subaortic territories. FDG positive lymph nodes in the right supraclavicular, right cervical level 4 regions of head and neck are consistent with distant mets. Low-grade activity in the left adrenal gland metastatic disease is not excluded. MRI scan of the brain done on August 05, 2020 shows large amount of vasogenic edema throughout right cerebrum. Metastatic lesions are present bilaterally. Largest mass centered in the right temporal lobe measuring 2 x 2.2 x 2.1 cm with a central area of necrosis and numerous additional subcentimeter lesions identified., Was referred to radiation oncology for whole brain radiation therapy which she completed on August 25, 2020 Came for follow-up, denies any specific complaint except chronic back pain chest pain and requesting refill for his narcotics, patient was supposed to get molecular profiling and PD-L1 status but because of no insurance issue and miscommunication between [employer] medical claims representative for patient assistance and patient, it was not done. Patient denies any hemoptysis or hematemesis, denies any nausea or vomiting denies any diarrhea or constipation denies any jaundice denies any blurred vision or double vision. Appetite is reasonable. Medications: Aspirin 81 1 Tablet (of 81 mg) Tablet, chewable Oral daily, Dexamethasone 1 Tablet (of 4 mg) Oral b.i.d., Isosorbide Mononitrate ER 1 Tablet (of 30 mg) Tablet SR 24 HR Oral daily, Losartan Potassium 1 Tablet (of 50 mg) Oral daily, Methadone HCl 1 Tablet (of 10 mg) Oral b.i.d., Metoprolol Tartrate 1 Tablet (of 100 mg) Oral b.i.d., Omeprazole 1 Capsule (of 20 mg) Capsule Delayed Release Oral b.i.d., Simvastatin 1 Tablet (of 40 mg) Oral daily Allergies: No Known Allergies. Review of Systems: Review of Systems is not available for this patient. Vital Signs: Vitals are not available for this patient. Performance Status: 1 - No physically strenuous activity, but ambulatory and able to carry out light or sedentary work (e.g. office work, light house work). (ECOG) Physical Examination: ENMT - JohnNo mouth sores, poor oral hygiene ,, Respiratory - Poor air entry otherwise clear, Cardiovascular - Regular rate and rhythm of heart, Abdomen - Soft, bowel sounds present, Extremities - No visible edema. Lab/Imaging: Most recent lab results are not available for this patient. 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 Right supraclavicular and jugulodigastric malignant lymph nodes questionable left adrenal uptake and MRI scan of the brain done on August 05, 2020 showed numerous metastatic lesions within the brain, largest lesion in the right temporal and right frontal lobes. Large amount of vasogenic edema in the right cerebellum resulting in 6.4 mm midline shift to the left. Additional smaller, subcentimeter left-sided lesion within the brain. Non-small cell lung cancer involving right upper lung per bronchoscopy done on July 20, 2020 confirmed non-small cell carcinoma involving right upper lobe and station 7 lymph node, immunohistochemistry Confirmed pulmonary adenocarcinoma CTA chest done on July 05, 2020 showed right upper lobe bulky tumor mass involving apical and posterior segments dimension 13 x 10.4 x 11.9 cm. Surrounding peritumoral infiltrate right upper lobe with evidence of lymphangitic metastatic disease. 2 subcentimeter hematogenous metastatic pulmonary nodules left lower lobe. Mediastinal and right hilar lymphadenopathy, subcarinal tumor lymphadenopathy measuring 4.6 x 3.7 x 3.9 cm. Left adrenal nodule measuring 19 x 14 mm most likely metastatic disease. CT PET scan done on July 31, 2020 showed 9.2 x 12.6 x 11.9 cm mass in the right upper lobe with SUV of 11.2. Complete occlusion of right upper lobe with postobstructive atelectasis. FDG positive centimeter left lower lobe, 7 mm anterior left lower lobe, 7 mm left upper lobe nodule represent contralateral metastatic disease. Malignant mediastinal lymphadenopathy. FDG positive lymph nodes in the right supraclavicular right cervical level 4 region. Low-grade activity in the left adrenal gland metastatic disease is not excluded. MRI scan of the brain done on July 26, 2020 shows large amount of vasogenic edema throughout the right cerebrum, metastatic lesions are present bilaterally. Largest mass centered in right temporal lobe measuring 2 x 2.2 x 2.1 cm. Patient was referred to radiation oncology and completed whole brain radiation therapy on August 25, 2020 Chronic smoking over 20 years, still smoking 1 pack a day History of alcohol abuse, quit 15 years ago. Chronic back pain and hip pain, on methadone per PMD Plan: Discussed with patient regarding his labs white blood count 11.7 hemoglobin 11.7 hematocrit 37 platelets 209,000 CMP within normal limits Clinically, patient doing reasonably well, recently completed whole brain radiation therapy for metastatic brain disease, earlier molecular profiling/PD-L1 status was ordered but because of patient's no insurance status and miscommunication between [employer] medical claims representative for patient assistance and patient this test was not done, we will request our pathology lab to consider PD-L1 status, other molecular testing for EGFR, ALK, ROS1, BRAF, etc. and and because of bulky disease, will proceed with systemic chemotherapy with carboplatin/Alimta every 3 weeks and in the meantime if molecular profiling shows any targetable mutation, will consider switching his therapy and if PD-L1 status confirmed immunotherapy, will consider adding immunotherapy to chemotherapy to optimize response. All the side effect possible benefits with systemic chemotherapy with carboplatin/Alimta were discussed, including but not limited to, bone marrow suppression, nausea vomiting, hair loss, generalized weakness and fatigue,, further teaching will done by chemotherapy nurse. We will start him on Alimta 500 mg per metered squared, carboplatin AUC 5 every 3 weeks. Patient return to clinic 1 week after chemotherapy is initiated with CBC CMP Signed By: Refugio Lunsford M.D. <<Signature on File>>
== END 2020-09-08 23:59 | disposition home or self-care (01) ==
LOC: ONCMED 05:29
PROVIDERS: PCP Family Medicine; Visit Provider Internal Medicine Hematology & Oncology
DX: Z51.0 Encounter for antineoplastic radiation therapy (principal); C34.11 Malignant neoplasm of upper lobe, right bronchus or lung; C79.31 Secondary malignant neoplasm of brain; C79.72 Secondary malignant neoplasm of left adrenal gland; C77.8 Secondary and unspecified malignant neoplasm of lymph nodes of multiple regions; C78.02 Secondary malignant neoplasm of left lung; F17.210 Nicotine dependence, cigarettes, uncomplicated; F10.21 Alcohol dependence, in remission; G89.29 Other chronic pain; M54.5 Low back pain; M16.0 Bilateral primary osteoarthritis of hip; Z79.899 Other long term (current) drug therapy
CPT/HCPCS: 36591; 77280; 77290; 77295; 77300; 77334; 77336; 77412; 77417; 80053; 85025; 99214

== ENCOUNTER 2020-09-30 05:44 | Outpatient (RCR) | payer MEDICAID, SELFPAY ==
[2020-09-09 08:44] LABS: Basophils % 0.1 %; Eosinophils % 0.4 %; Hematocrit 36.2 % (42.0-52.0); Hemoglobin 11.3 g/dL (11.7-16.6); Lymphocytes # 0.7 10^3/uL (0.8-4.8); Lymphocytes % 6.7 %; Mean Corpuscular HGB Conc 31.2 g/dL (30.0-36.0); Mean Corpuscular Hemoglobin 27.3 pg (28.0-34.0); Mean Corpuscular Volume 87.4 fL (80-94); Mean Platelet Volume 9.5 fL (7.4-10.4); Monocytes # 0.2 10^3/uL (0.2-0.9); Monocytes % 2.3 %; Neutrophils # 9.39 10^3/uL (1.8-7.7); Neutrophils % 88.3 %; Nucleated Red Blood Cells % 0 %; Platelet Count 256 10^3/cmm (130-400); Red Blood Count 4.14 10^6/uL (4.1-5.3); Red Cell Distribution Width 18.9 % (12.1-15.1); White Blood Count 10.6 10^3/uL (4.0-10.0)
[2020-09-09 09:09] LABS: Alanine Aminotransferase 41 U/L (0-41); Alkaline Phosphatase 80 IU/L (40-130); Anion Gap 13.2 (5-19); Aspartate Amino Transferase 33 U/L (0-40); Blood Urea Nitrogen 18 mg/dL (6-20); Calcium 7.8 mg/dL (8.5-10.5); Carbon Dioxide 23 mmol/L (22-29); Chloride 102 mmol/L (98-107); Globulin 2.8 g/dL (1.3-4.6); Glomerular Filtration Rate 99.6 mL/min (90-130); Glucose 120 mg/dL (65-115); Osmolality Calculated 281 mOsm/kg (285-295); Potassium 4.2 mmol/L (3.5-5.1); Sodium 134 mmol/L (136-145); Total Bilirubin 0.2 mg/dL (0.15-1.2); Total Protein 5.8 g/dL (6.6-8.7)
[2020-09-09] MEDS: sodium chloride 0.9% 250 ML 75 ML IV (10:40)
[2020-09-09] MEDS: famotidine 20 mg/2 mL INJ IVP (10:40)
[2020-09-09] MEDS: diphenhydrAMINE 50 mg/mL SDV 1mL 25 MG IV (10:42)
[2020-09-09] MEDS: palonosetron 0.25 mg/5 mL SDV IV (10:45)
[2020-09-09] MEDS: fosaprepitant 150 MG in sodium chloride 0.9% 150 ML 300 MG IV (11:09)
--- NOTE | 2020-09-09 17:40 | ONC FU_ITS ---
Dr. Lunsford follow up note Patient: Kevin Omalley Sr Unit #: [id number]: [id number] Dicatated By: Refugio Lunsford M.D.Date of Visit:Sep 09, 2020 Onc Med Follow-up/Prog Note History of Present Illness: ,Mr. Kevin Omalley is a 55-year-old gentleman, with a 20+ year history of heavy smoking still smoke about pack a day, about 30 pound weight loss over the period of 3 months, went to [facility] on July 05, 2020 with progressive dyspnea on exertion right chest discomfort/pain and foggy head-like feeling, patient on methadone for 5 to 8 years for chronic/hip pains and part of evaluation he underwent CTA chest on July 05, 2020 which showed large right upper lobe bulky tumor mass involving primarily apical and posterior segments dimension 13 cm x 10.4 x 11.9 cm. Surrounding peritumoral infiltrate right upper lobe with evidence of lymphangitic spread metastatic disease. Mediastinal and right hilar lymphadenopathy. And 2 subcentimeter hematogenous metastatic pulmonary nodules in the left lower lobe. And left adrenal nodule measuring 19 x 14 mm most likely metastatic., Patient was referred to pulmonology and on July 20, 2020 he underwent bronchoscopy which showed there is a no endobronchial lesion but entrance to the right upper lobe bronchus was completely occluded transbronchial biopsy and lymph node station 7 endoscopic ultrasound guided biopsy was obtained which confirmed non-small cell carcinoma, immunohistochemistry , Confirmed TTF-1 positive, Napsin positive, chromogranin A negative, consistent with primary pulmonary adenocarcinoma Patient denies alcohol use but used to drink heavily but quit alcohol about 15 years ago. Patient denies any night sweats, denies any dysphagia, denies any right eye weakness, denies any blurred vision or double vision Underwent Staging CT PET scan on July 31, 2020 which showed right upper lobe, 9.2 x 12.6 x 11.9 cm mass with SUV of 11.2. Complete occlusion of right upper lobe with postobstructive atelectasis. An FDG +1 cm left lower lobe, 7 mm anterior left lower lobe, 7 mm left upper lobe nodule represent contralateral metastatic disease. Malignant mediastinal adenopathy is present in the subcarinal, right prevascular, right paratracheal, subaortic territories. FDG positive lymph nodes in the right supraclavicular, right cervical level 4 regions of head and neck are consistent with distant mets. Low-grade activity in the left adrenal gland metastatic disease is not excluded. MRI scan of the brain done on August 05, 2020 shows large amount of vasogenic edema throughout right cerebrum. Metastatic lesions are present bilaterally. Largest mass centered in the right temporal lobe measuring 2 x 2.2 x 2.1 cm with a central area of necrosis and numerous additional subcentimeter lesions identified., Was referred to radiation oncology for whole brain radiation therapy which she completed on August 25, 2020 Started on palliative therapy with carboplatin/Alimta on September 09, 2020 Came for follow-up, denies any specific complaints, no fever chills, no nausea or vomiting, no diarrhea constipation, as per patient he is working with [facility] regarding molecular profiling in the meantime ready to start his palliative chemotherapy with carboplatin/Alimta Medications: Aspirin 81 1 Tablet (of 81 mg) Tablet, chewable Oral daily, Dexamethasone 1 Tablet (of 4 mg) Oral b.i.d., Isosorbide Mononitrate ER 1 Tablet (of 30 mg) Tablet SR 24 HR Oral daily, Losartan Potassium 1 Tablet (of 50 mg) Oral daily, Methadone HCl 1 Tablet (of 10 mg) Oral b.i.d., Metoprolol Tartrate 1 Tablet (of 100 mg) Oral b.i.d., Omeprazole 1 Capsule (of 20 mg) Capsule Delayed Release Oral b.i.d., Simvastatin 1 Tablet (of 40 mg) Oral daily Allergies: No Known Allergies. Review of Systems: Review of Systems is not available for this patient. Vital Signs: Performed on Sep 09, 2020 09:40 Height - 70.00 in Weight - 167.8 lbs (HIGH) BSA - 1.94 sq.m BMI - 24.08 Temperature - 98.2 F (LOW) Pulse - 78 /min Respiration - 18 /min BP - 100/60 mm(hg) O2 Sat - 97 % Pain - 6 Fatigue - 5 Performance Status: 1 - No physically strenuous activity, but ambulatory and able to carry out light or sedentary work (e.g. office work, light house work). (ECOG) Physical Examination: ENMT - No mouth sores, no thrush, no jaundice, Respiratory - Lungs are clear to auscultation, Cardiovascular - Regular rate and rhythm of heart, Abdomen - Soft, bowel sounds present, Extremities - No visible edema. Lab/Imaging: Test performed on Sep 09, 2020 08:30 Sodium 134 mmol/L Potassium 4.2 mmol/L Chloride 102 mmol/L CO2 23 mmol/L Anion Gap 13.2 BUN 18 mg/dL Creatinine 0.8 mg/dL Cr Clearance (Est) 103.2700 mL/min eGFR 99.6 mL/min Glucose 120 mg/dL Osmolality - Calculated 281 mOsm/kg Calcium 7.8 mg/dL Protein, Total 5.8 g/dL Albumin 3.0 g/dL Globulin 2.8 g/dL Bilirubin, Total 0.2 mg/dL ALT (SGPT) 41 U/L AST (SGOT) 33 U/L Alkaline Phosphatase 80 IU/L WBC 10.6 10 3/uL RBC 4.14 10 6/uL HGB 11.3 g/dL HCT 36.2 % MCV 87.4 fL MCH 27.3 pg MCHC 31.2 g/dL RDW 18.9 % Platelet Count 256 10 3/cmm MPV 9.5 fL Neutrophils 9.39 10 3/uL Lymphocytes 0.7 10 3/uL Monocytes 0.2 10 3/uL Eosinophils 0.0 10 3/uL Basophils 0.0 10 3/uL Neutrophil % 88.3 % Lymphocyte % 6.7 % Monocyte % 2.3 % Eosinophil % 0.4 % Basophils % 0.1 % NRBC % 0 % Impression: Metastatic adenocarcinoma of the lung with extensive brain mets and left adrenal mets and cervical/mediastinal lymphadenopathy, CT PET scan done on July 31, 2020 confirmed right upper lobe mass with complete bronchial obstruction, extensive malignant mediastinal lymphadenopathy, small left lung pulmonary nodules consistent with metastatic disease. Right supraclavicular and jugulodigastric malignant lymph nodes questionable left adrenal uptake and MRI scan of the brain done on August 05, 2020 showed numerous metastatic lesions within the brain, largest lesion in the right temporal and right frontal lobes. Large amount of vasogenic edema in the right cerebellum resulting in 6.4 mm midline shift to the left. Additional smaller, subcentimeter left-sided lesion within the brain. Non-small cell lung cancer involving right upper lung per bronchoscopy done on July 20, 2020 confirmed non-small cell carcinoma involving right upper lobe and station 7 lymph node, immunohistochemistry Confirmed pulmonary adenocarcinoma CTA chest done on July 05, 2020 showed right upper lobe bulky tumor mass involving apical and posterior segments dimension 13 x 10.4 x 11.9 cm. Surrounding peritumoral infiltrate right upper lobe with evidence of lymphangitic metastatic disease. 2 subcentimeter hematogenous metastatic pulmonary nodules left lower lobe. Mediastinal and right hilar lymphadenopathy, subcarinal tumor lymphadenopathy measuring 4.6 x 3.7 x 3.9 cm. Left adrenal nodule measuring 19 x 14 mm most likely metastatic disease. CT PET scan done on July 31, 2020 showed 9.2 x 12.6 x 11.9 cm mass in the right upper lobe with SUV of 11.2. Complete occlusion of right upper lobe with postobstructive atelectasis. FDG positive centimeter left lower lobe, 7 mm anterior left lower lobe, 7 mm left upper lobe nodule represent contralateral metastatic disease. Malignant mediastinal lymphadenopathy. FDG positive lymph nodes in the right supraclavicular right cervical level 4 region. Low-grade activity in the left adrenal gland metastatic disease is not excluded. MRI scan of the brain done on July 26, 2020 shows large amount of vasogenic edema throughout the right cerebrum, metastatic lesions are present bilaterally. Largest mass centered in right temporal lobe measuring 2 x 2.2 x 2.1 cm. Patient was referred to radiation oncology and completed whole brain radiation therapy on August 25, 2020 Started on palliative chemotherapy with carboplatin/Alimta on September 09, 2020, while working on getting molecular profiling as patient has no insurance Chronic smoking over 20 years, still smoking 1 pack a day History of alcohol abuse, quit 15 years ago. Chronic back pain and hip pain, on methadone per PMD Plan: Discussed with patient regarding his labs white blood count 10.6 hemoglobin 11.3 hematocrit 36.2 platelets 256,000 CMP within normal limits Clinically, patient doing well with no new signs symptom suggestive of disease progression, now being started on palliative chemotherapy with carboplatin/Alimta today, he will return to clinic in 1 week with CBC CMP We are awaiting for molecular profiling, as patient has no insurance so patient is working with [facility] for patient assistance. Signed By: Refugio Lunsford M.D. <<Signature on File>>
[2020-09-17 08:45] LABS: Basophils % 0.3 %; Eosinophils # 0.1 10^3/uL (0.0-0.8); Eosinophils % 1.7 %; Hematocrit 39.3 % (42.0-52.0); Hemoglobin 12.8 g/dL (11.7-16.6); Lymphocytes # 1.1 10^3/uL (0.8-4.8); Lymphocytes % 31.5 %; Mean Corpuscular HGB Conc 32.6 g/dL (30.0-36.0); Mean Corpuscular Hemoglobin 27.8 pg (28.0-34.0); Mean Corpuscular Volume 85.2 fL (80-94); Mean Platelet Volume 9.4 fL (7.4-10.4); Monocytes # 0.1 10^3/uL (0.2-0.9); Monocytes % 2.9 %; Neutrophils # 2.16 10^3/uL (1.8-7.7); Neutrophils % 62.4 %; Nucleated Red Blood Cells % 0 %; Platelet Count 165 10^3/cmm (130-400); Red Blood Count 4.61 10^6/uL (4.1-5.3); Red Cell Distribution Width 17.8 % (12.1-15.1); White Blood Count 3.5 10^3/uL (4.0-10.0)
[2020-09-17 09:06] LABS: Alanine Aminotransferase 31 U/L (0-41); Albumin Level 3.3 g/dL (3.5-5.2); Alkaline Phosphatase 104 IU/L (40-130); Anion Gap 17.6 (5-19); Aspartate Amino Transferase 19 U/L (0-40); Blood Urea Nitrogen 20 mg/dL (6-20); Calcium 8.7 mg/dL (8.5-10.5); Carbon Dioxide 21 mmol/L (22-29); Chloride 95 mmol/L (98-107); Globulin 3.2 g/dL (1.3-4.6); Glomerular Filtration Rate 62.4 mL/min (90-130); Glucose 134 mg/dL (65-115); Osmolality Calculated 275 mOsm/kg (285-295); Potassium 3.6 mmol/L (3.5-5.1); Sodium 130 mmol/L (136-145); Total Bilirubin 0.4 mg/dL (0.15-1.2); Total Protein 6.5 g/dL (6.6-8.7)
[2020-09-17 09:25] LABS: Slide Review Slide Review Perform
[2020-09-17] MEDS: sodium chloride 0.9% 250 ML 999 ML IV (10:29)
[2020-09-17 11:04] LABS: Add Urine Microscopic? NO; Charge for UA Resulting for Rev
[2020-09-17 11:22] LABS: Bilirubin Urine Neg (Negative); Blood Urine Neg (Negative); Glucose Urine UA Norm (Normal); Ketones Urine Negative (Negative); Leukocyte Esterase Urine Negative (Negative); Nitrate Urine Negative (Negative); Protein Urine Neg (Negative); Urine Appearance Clear (CLEAR); Urine Color Yellow (Yellow); Urobilinogen Urine Norm (Negative); pH Urine 5 (5-7)
[2020-09-30 08:49] LABS: Hematocrit 28.6 % (42.0-52.0); Hemoglobin 9.2 g/dL (11.7-16.6); Mean Corpuscular HGB Conc 32.2 g/dL (30.0-36.0); Mean Corpuscular Hemoglobin 28.4 pg (28.0-34.0); Mean Corpuscular Volume 88.3 fL (80-94); Mean Platelet Volume 9.5 fL (7.4-10.4); Platelet Count 622 10^3/cmm (130-400); Red Blood Count 3.24 10^6/uL (4.1-5.3); Red Cell Distribution Width 16.8 % (12.1-15.1); White Blood Count 10.9 10^3/uL (4.0-10.0)
[2020-09-30 09:06] LABS: Alanine Aminotransferase 18 U/L (0-41); Albumin Level 3.1 g/dL (3.5-5.2); Alkaline Phosphatase 84 IU/L (40-130); Anion Gap 14.8 (5-19); Aspartate Amino Transferase 23 U/L (0-40); Blood Urea Nitrogen 29 mg/dL (6-20); Calcium 7.7 mg/dL (8.5-10.5); Carbon Dioxide 25 mmol/L (22-29); Chloride 101 mmol/L (98-107); Globulin 2.6 g/dL (1.3-4.6); Glucose 107 mg/dL (65-115); Osmolality Calculated 290 mOsm/kg (285-295); Potassium 3.8 mmol/L (3.5-5.1); Sodium 137 mmol/L (136-145); Total Bilirubin 0.2 mg/dL (0.15-1.2); Total Protein 5.7 g/dL (6.6-8.7)
[2020-09-30 10:00] LABS: Slide Review Slide Review Perform
[2020-09-30 10:04] LABS: Absolute Segmented Neutrophil 7.4 10/cmm (1.6-7.1); Band Neutrophils Absolute 0.1 10^3/cmm (0.0-1.2); Lymphocytes 17 %; Monocytes Absolute 0.7 10^3/cmm (0.1-0.6); Segmented Neutrophils 68 %; Total Cells Counted 100 (0-100)
[2020-09-30 10:05] LABS: Absolute Neutrophil 7.5 10^3/cmm (1.4-6.5); Anisocytosis 1+; Eosinophils 0 %; Lymphocytes Absolute 1.9 10^3/cmm (1.2-3.4); Macrocytosis 1+; Platelet Estimate Increased (Normal); Poikilocytosis Trace
[2020-09-30] MEDS: famotidine 20 mg/2 mL INJ IVP (11:09)
[2020-09-30] MEDS: sodium chloride 0.9% 250 ML 75 ML IV (11:09)
[2020-09-30] MEDS: diphenhydrAMINE 50 mg/mL SDV 1mL 25 MG IV (11:11)
[2020-09-30] MEDS: fosaprepitant 150 MG in sodium chloride 0.9% 150 ML 300 MG IV (11:16)
[2020-09-30] MEDS: palonosetron 0.25 mg/5 mL SDV IV (11:38)
[2020-09-30 11:52] LABS: Ferritin 788 ng/mL (30-400); Iron 96 ug/dL (59-158); Percent Saturation 61.5 % (20-50); Total Iron Binding Capacity 156 mcg/dl; Unsaturated Iron Binding 60 ug/dL (112-347); Vitamin B12 504 pg/mL (232-1245)
--- NOTE | 2020-09-30 18:16 | ONC FU_ITS ---
Dr. Lunsford follow up note Patient: Kevin Omalley Sr Unit #: [id number]: [id number] Dicatated By: Refugio Lunsford M.D.Date of Visit:Sep 30, 2020 Onc Med Follow-up/Prog Note History of Present Illness: ,Mr. Kevin Omalley is a 55-year-old gentleman, with a 20+ year history of heavy smoking still smoke about pack a day, about 30 pound weight loss over the period of 3 months, went [place] [facility] [place] [facility] [place], 2020 with progressive dyspnea on exertion right chest discomfort/pain and foggy head-like feeling, patient on methadone for 5 to 8 years for chronic/hip pains and part of evaluation he underwent CTA chest on July 05, 2020 which showed large right upper lobe bulky tumor mass involving primarily apical and posterior segments dimension 13 cm x 10.4 x 11.9 cm. Surrounding peritumoral infiltrate right upper lobe with evidence of lymphangitic spread metastatic disease. Mediastinal and right hilar lymphadenopathy. And 2 subcentimeter hematogenous metastatic pulmonary nodules in the left lower lobe. And left adrenal nodule measuring 19 x 14 mm most likely metastatic., Patient was referred to pulmonology and on July 20, 2020 he underwent bronchoscopy which showed there is a no endobronchial lesion but entrance to the right upper lobe bronchus was completely occluded transbronchial biopsy and lymph node station 7 endoscopic ultrasound guided biopsy was obtained which confirmed non-small cell carcinoma, immunohistochemistry , Confirmed TTF-1 positive, Napsin positive, chromogranin A negative, consistent with primary pulmonary adenocarcinoma Patient denies alcohol use but used to drink heavily but quit alcohol about 15 years ago. Patient denies any night sweats, denies any dysphagia, denies any right eye weakness, denies any blurred vision or double vision Underwent Staging CT PET scan on July 31, 2020 which showed right upper lobe, 9.2 x 12.6 x 11.9 cm mass with SUV of 11.2. Complete occlusion of right upper lobe with postobstructive atelectasis. An FDG +1 cm left lower lobe, 7 mm anterior left lower lobe, 7 mm left upper lobe nodule represent contralateral metastatic disease. Malignant mediastinal adenopathy is present in the subcarinal, right prevascular, right paratracheal, subaortic territories. FDG positive lymph nodes in the right supraclavicular, right cervical level 4 regions of head and neck are consistent with distant mets. Low-grade activity in the left adrenal gland metastatic disease is not excluded. MRI scan of the brain done on August 05, 2020 shows large amount of vasogenic edema throughout right cerebrum. Metastatic lesions are present bilaterally. Largest mass centered in the right temporal lobe measuring 2 x 2.2 x 2.1 cm with a central area of necrosis and numerous additional subcentimeter lesions identified., Was referred to radiation oncology for whole brain radiation therapy which she completed on August 25, 2020 Started on palliative therapy with carboplatin/Alimta on September 09, 2020 Came for follow-up, denies any specific complaint except episode of off and on bleeding per rectum for the last 3 days, now has stopped, no fever chills, no nausea or vomiting, no diarrhea or constipation, no jaundice, no shortness of breath or palpitation or chest pain at rest. No skin rash, no hemoptysis or hematemesis, tolerating palliative chemotherapy with Alimta/carboplatin well otherwise, still awaiting molecular profiling report Medications: Aspirin 81 1 Tablet (of 81 mg) Tablet, chewable Oral daily, Dexamethasone 1 Tablet (of 4 mg) Oral b.i.d., Isosorbide Mononitrate ER 1 Tablet (of 30 mg) Tablet SR 24 HR Oral daily, Losartan Potassium 1 Tablet (of 50 mg) Oral daily, Methadone HCl 1 Tablet (of 10 mg) Oral b.i.d., Metoprolol Tartrate 1 Tablet (of 100 mg) Oral b.i.d., Omeprazole 1 Capsule (of 20 mg) Capsule Delayed Release Oral b.i.d., Simvastatin 1 Tablet (of 40 mg) Oral daily Allergies: No Known Allergies. Review of Systems: Review of Systems is not available for this patient. Vital Signs: Performed on Sep 30, 2020 13:47 Height - 70.00 in Weight - 167.8 lbs (HIGH) BSA - 1.94 sq.m BMI - 24.08 Temperature - 97.6 F (LOW) Pulse - 64 /min Respiration - 18 /min BP - 121/79 mm(hg) O2 Sat - 97 % Pain - 8 Fatigue - 6 Performance Status: 1 - No physically strenuous activity, but ambulatory and able to carry out light or sedentary work (e.g. office work, light house work). (ECOG) Physical Examination: ENMT - No mouth sores, no thrush, no jaundice, Respiratory - Lungs are clear to auscultation , Cardiovascular - Regular rate and rhythm of heart, Abdomen - Soft, bowel sounds present, Extremities - No visible edema. Lab/Imaging: Test performed on Sep 30, 2020 08:13 Sodium 137 mmol/L Potassium 3.8 mmol/L Chloride 101 mmol/L CO2 25 mmol/L Anion Gap 14.8 BUN 29 mg/dL Creatinine 1.1 mg/dL Cr Clearance (Est) 75.1100 mL/min eGFR 69.0 mL/min Glucose 107 mg/dL Osmolality - Calculated 290 mOsm/kg Calcium 7.7 mg/dL Protein, Total 5.7 g/dL Albumin 3.1 g/dL Globulin 2.6 g/dL Bilirubin, Total 0.2 mg/dL ALT (SGPT) 18 U/L AST (SGOT) 23 U/L Alkaline Phosphatase 84 IU/L WBC 10.9 10 3/uL Manual Segs % 68 % Manual Bands % 1.0 % RBC 3.24 10 6/uL HGB 9.2 g/dL Manual Lymphs % 17 % Atypical Lymphs % 0.0 % HCT 28.6 % MCV 88.3 fL Total Cells Counted 100 Manual Monos % 6.0 % MCH 28.4 pg Manual Eos % 0 % MCHC 32.2 g/dL Manual Basos % 0.0 % RDW 16.8 % Metamyelocytes % 3.0 % Platelet Count 622 10 3/cmm MPV 9.5 fL Myelocytes % 4.0 % Promyelocytes % 1.0 % CBC Slide Review Slide Review Perform Anisocytosis 1+ Macrocytosis 1+ Poikilocytosis Trace Platelet Estimate Increased Manual Segs Abs 7.4 10/cmm Manual Bands Abs 0.1 10 3/cmm Manual Neutrophils Abs 7.5 10 3/cmm Manual Lymphocytes Abs 1.9 10 3/cmm Manual Monocytes Abs 0.7 10 3/cmm Manual Eosinophils Abs 0.0 10 3/cmm Manual Basophils Abs 0.0 10 3/cmm Test performed on Sep 09, 2020 08:30 Neutrophils 9.39 10 3/uL Lymphocytes 0.7 10 3/uL Monocytes 0.2 10 3/uL Eosinophils 0.0 10 3/uL Basophils 0.0 10 3/uL Neutrophil % 88.3 % Lymphocyte % 6.7 % Monocyte % 2.3 % Eosinophil % 0.4 % Basophils % 0.1 % NRBC % 0 % Impression: Metastatic adenocarcinoma of the lung with extensive brain mets and left adrenal mets and cervical/mediastinal lymphadenopathy, CT PET scan done on July 31, 2020 confirmed right upper lobe mass with complete bronchial obstruction, extensive malignant mediastinal lymphadenopathy, small left lung pulmonary nodules consistent with metastatic disease. Right supraclavicular and jugulodigastric malignant lymph nodes questionable left adrenal uptake and MRI scan of the brain done on August 05, 2020 showed numerous metastatic lesions within the brain, largest lesion in the right temporal and right frontal lobes. Large amount of vasogenic edema in the right cerebellum resulting in 6.4 mm midline shift to the left. Additional smaller, subcentimeter left-sided lesion within the brain. Non-small cell lung cancer involving right upper lung per bronchoscopy done on July 20, 2020 confirmed non-small cell carcinoma involving right upper lobe and station 7 lymph node, immunohistochemistry Confirmed pulmonary adenocarcinoma CTA chest done on July 05, 2020 showed right upper lobe bulky tumor mass involving apical and posterior segments dimension 13 x 10.4 x 11.9 cm. Surrounding peritumoral infiltrate right upper lobe with evidence of lymphangitic metastatic disease. 2 subcentimeter hematogenous metastatic pulmonary nodules left lower lobe. Mediastinal and right hilar lymphadenopathy, subcarinal tumor lymphadenopathy measuring 4.6 x 3.7 x 3.9 cm. Left adrenal nodule measuring 19 x 14 mm most likely metastatic disease. CT PET scan done on July 31, 2020 showed 9.2 x 12.6 x 11.9 cm mass in the right upper lobe with SUV of 11.2. Complete occlusion of right upper lobe with postobstructive atelectasis. FDG positive centimeter left lower lobe, 7 mm anterior left lower lobe, 7 mm left upper lobe nodule represent contralateral metastatic disease. Malignant mediastinal lymphadenopathy. FDG positive lymph nodes in the right supraclavicular right cervical level 4 region. Low-grade activity in the left adrenal gland metastatic disease is not excluded. MRI scan of the brain done on July 26, 2020 shows large amount of vasogenic edema throughout the right cerebrum, metastatic lesions are present bilaterally. Largest mass centered in right temporal lobe measuring 2 x 2.2 x 2.1 cm. Patient was referred to radiation oncology and completed whole brain radiation therapy on August 25, 2020 Started on palliative chemotherapy with carboplatin/Alimta on September 09, 2020, while working on getting molecular profiling as patient has no insurance Chronic smoking over 20 years, still smoking 1 pack a day History of alcohol abuse, quit 15 years ago. Chronic back pain and hip pain, on methadone per PMD Plan: Discussed with patient regarding his labs white blood count 10.9 hemoglobin 9.2 g compared to 12.8 g on September 17, 2020 hematocrit 28.6 platelets 622,000 CMP within normal limit Clinically, patient is doing reasonably well now with generalized weakness and fatigue probably due to progressive anemia due to off and on blood loss per rectum, at this point, will proceed with his next cycle of chemotherapy with carboplatin/Alimta and then he will return to clinic in 2 weeks with CBC CMP As far as progressive anemia is concerned, will consider anemia work-up including iron studies, B12 folic acid and reticulocyte count and then referred patient to GI for EGD and colonoscopy regarding off and on bleeding per rectum. Patient was advised in case there is a worsening of bleeding per rectum, he need to call us or go to hospital for evaluation Signed By: Refugio Lunsford M.D. <<Signature on File>>
--- NOTE | 2020-10-03 17:59 | ONC FU_ITS ---
Dr. Lunsford follow up note Patient: Kevin Omalley Sr Unit #: [id number]: 1965 Dicatated By: Refugio Lunsford M.D.Date of Visit:Sep 17, 2020 Onc Med Follow-up/Prog Note History of Present Illness: ,Mr. Kevin Omalley is a 55-year-old gentleman, with a 20+ year history of heavy smoking still smoke about pack a day, about 30 pound weight loss over the period of 3 months, went to [facility] on July 05, 2020 with progressive dyspnea on exertion right chest discomfort/pain and foggy head-like feeling, patient on methadone for 5 to 8 years for chronic/hip pains and part of evaluation he underwent CTA chest on July 05, 2020 which showed large right upper lobe bulky tumor mass involving primarily apical and posterior segments dimension 13 cm x 10.4 x 11.9 cm. Surrounding peritumoral infiltrate right upper lobe with evidence of lymphangitic spread metastatic disease. Mediastinal and right hilar lymphadenopathy. And 2 subcentimeter hematogenous metastatic pulmonary nodules in the left lower lobe. And left adrenal nodule measuring 19 x 14 mm most likely metastatic., Patient was referred to pulmonology and on July 20, 2020 he underwent bronchoscopy which showed there is a no endobronchial lesion but entrance to the right upper lobe bronchus was completely occluded transbronchial biopsy and lymph node station 7 endoscopic ultrasound guided biopsy was obtained which confirmed non-small cell carcinoma, immunohistochemistry , Confirmed TTF-1 positive, Napsin positive, chromogranin A negative, consistent with primary pulmonary adenocarcinoma Patient denies alcohol use but used to drink heavily but quit alcohol about 15 years ago. Patient denies any night sweats, denies any dysphagia, denies any right eye weakness, denies any blurred vision or double vision Underwent Staging CT PET scan on July 31, 2020 which showed right upper lobe, 9.2 x 12.6 x 11.9 cm mass with SUV of 11.2. Complete occlusion of right upper lobe with postobstructive atelectasis. An FDG +1 cm left lower lobe, 7 mm anterior left lower lobe, 7 mm left upper lobe nodule represent contralateral metastatic disease. Malignant mediastinal adenopathy is present in the subcarinal, right prevascular, right paratracheal, subaortic territories. FDG positive lymph nodes in the right supraclavicular, right cervical level 4 regions of head and neck are consistent with distant mets. Low-grade activity in the left adrenal gland metastatic disease is not excluded. MRI scan of the brain done on August 05, 2020 shows large amount of vasogenic edema throughout right cerebrum. Metastatic lesions are present bilaterally. Largest mass centered in the right temporal lobe measuring 2 x 2.2 x 2.1 cm with a central area of necrosis and numerous additional subcentimeter lesions identified., Was referred to radiation oncology for whole brain radiation therapy which she completed on August 25, 2020 Started on palliative therapy with carboplatin/Alimta on September 09, 2020 Came for follow-up, complaining of generalized weakness and fatigue and jolene feeling in his mouth and also complaining of chronic back pain for which he takes methadone and patient is requesting if he can have a prescription for that as narcotic is not helping him, also complaining of tenderness in the scalp. And hair loss Medications: Aspirin 81 1 Tablet (of 81 mg) Tablet, chewable Oral daily, Dexamethasone 1 Tablet (of 4 mg) Oral b.i.d., Isosorbide Mononitrate ER 1 Tablet (of 30 mg) Tablet SR 24 HR Oral daily, Losartan Potassium 1 Tablet (of 50 mg) Oral daily, Methadone HCl 1 Tablet (of 10 mg) Oral b.i.d., Metoprolol Tartrate 1 Tablet (of 100 mg) Oral b.i.d., Omeprazole 1 Capsule (of 20 mg) Capsule Delayed Release Oral b.i.d., Simvastatin 1 Tablet (of 40 mg) Oral daily Allergies: No Known Allergies. Review of Systems: Review of Systems is not available for this patient. Vital Signs: Performed on Sep 17, 2020 09:57 Height - 70.00 in Weight - 155.8 lbs (LOW) BSA - 1.88 sq.m BMI - 22.36 Temperature - 97.9 F (LOW) Pulse - 92 /min Respiration - 18 /min BP - 116/86 mm(hg) O2 Sat - 97 % Pain - 8 Fatigue - 9 Performance Status: 2 - Ambulatory/capable of all self-care, unable to perform any work activities. Up and about more than 50% of waking hours. (ECOG) Physical Examination: ENMT - No mouth sores, But thrush and dry oral mucosa, Respiratory - Lungs are clear to auscultation, Cardiovascular - Regular rate and rhythm of heart, Abdomen - Soft, bowel sounds present, Extremities - No visible edema. Lab/Imaging: Test performed on Sep 30, 2020 08:13 Sodium 137 mmol/L Potassium 3.8 mmol/L Chloride 101 mmol/L CO2 25 mmol/L Anion Gap 14.8 BUN 29 mg/dL Creatinine 1.1 mg/dL Cr Clearance (Est) 75.1100 mL/min eGFR 69.0 mL/min Glucose 107 mg/dL Osmolality - Calculated 290 mOsm/kg Calcium 7.7 mg/dL Protein, Total 5.7 g/dL Albumin 3.1 g/dL Globulin 2.6 g/dL Bilirubin, Total 0.2 mg/dL ALT (SGPT) 18 U/L AST (SGOT) 23 U/L Alkaline Phosphatase 84 IU/L WBC 10.9 10 3/uL Manual Segs % 68 % Manual Bands % 1.0 % RBC 3.24 10 6/uL HGB 9.2 g/dL Manual Lymphs % 17 % Atypical Lymphs % 0.0 % HCT 28.6 % MCV 88.3 fL Total Cells Counted 100 Manual Monos % 6.0 % MCH 28.4 pg Manual Eos % 0 % MCHC 32.2 g/dL Manual Basos % 0.0 % RDW 16.8 % Metamyelocytes % 3.0 % Platelet Count 622 10 3/cmm MPV 9.5 fL Myelocytes % 4.0 % Promyelocytes % 1.0 % CBC Slide Review Slide Review Perform Anisocytosis 1+ Macrocytosis 1+ Poikilocytosis Trace Platelet Estimate Increased Manual Segs Abs 7.4 10/cmm Manual Bands Abs 0.1 10 3/cmm Manual Neutrophils Abs 7.5 10 3/cmm Manual Lymphocytes Abs 1.9 10 3/cmm Manual Monocytes Abs 0.7 10 3/cmm Manual Eosinophils Abs 0.0 10 3/cmm Manual Basophils Abs 0.0 10 3/cmm Test performed on Sep 09, 2020 08:30 Neutrophils 9.39 10 3/uL Lymphocytes 0.7 10 3/uL Monocytes 0.2 10 3/uL Eosinophils 0.0 10 3/uL Basophils 0.0 10 3/uL Neutrophil % 88.3 % Lymphocyte % 6.7 % Monocyte % 2.3 % Eosinophil % 0.4 % Basophils % 0.1 % NRBC % 0 % Impression: Metastatic adenocarcinoma of the lung with extensive brain mets and left adrenal mets and cervical/mediastinal lymphadenopathy, CT PET scan done on July 31, 2020 confirmed right upper lobe mass with complete bronchial obstruction, extensive malignant mediastinal lymphadenopathy, small left lung pulmonary nodules consistent with metastatic disease. Right supraclavicular and jugulodigastric malignant lymph nodes questionable left adrenal uptake and MRI scan of the brain done on August 05, 2020 showed numerous metastatic lesions within the brain, largest lesion in the right temporal and right frontal lobes. Large amount of vasogenic edema in the right cerebellum resulting in 6.4 mm midline shift to the left. Additional smaller, subcentimeter left-sided lesion within the brain. Non-small cell lung cancer involving right upper lung per bronchoscopy done on July 20, 2020 confirmed non-small cell carcinoma involving right upper lobe and station 7 lymph node, immunohistochemistry Confirmed pulmonary adenocarcinoma CTA chest done on July 05, 2020 showed right upper lobe bulky tumor mass involving apical and posterior segments dimension 13 x 10.4 x 11.9 cm. Surrounding peritumoral infiltrate right upper lobe with evidence of lymphangitic metastatic disease. 2 subcentimeter hematogenous metastatic pulmonary nodules left lower lobe. Mediastinal and right hilar lymphadenopathy, subcarinal tumor lymphadenopathy measuring 4.6 x 3.7 x 3.9 cm. Left adrenal nodule measuring 19 x 14 mm most likely metastatic disease. CT PET scan done on July 31, 2020 showed 9.2 x 12.6 x 11.9 cm mass in the right upper lobe with SUV of 11.2. Complete occlusion of right upper lobe with postobstructive atelectasis. FDG positive centimeter left lower lobe, 7 mm anterior left lower lobe, 7 mm left upper lobe nodule represent contralateral metastatic disease. Malignant mediastinal lymphadenopathy. FDG positive lymph nodes in the right supraclavicular right cervical level 4 region. Low-grade activity in the left adrenal gland metastatic disease is not excluded. MRI scan of the brain done on July 26, 2020 shows large amount of vasogenic edema throughout the right cerebrum, metastatic lesions are present bilaterally. Largest mass centered in right temporal lobe measuring 2 x 2.2 x 2.1 cm. Patient was referred to radiation oncology and completed whole brain radiation therapy on August 25, 2020 Started on palliative chemotherapy with carboplatin/Alimta on September 09, 2020, while working on getting molecular profiling as patient has no insurance Chronic smoking over 20 years, still smoking 1 pack a day History of alcohol abuse, quit 15 years ago. Chronic back pain and hip pain, on methadone per PMD Plan: Discussed with patient regarding his labs white blood count 3.5 hemoglobin 12.8 hematocrit 39.3 platelets 165,000 CMP within normal limit except creatinine 1.2 Clinically, patient is doing reasonably well, now with progressive generalized weakness and fatigue and dehydration, now on exam, there is evidence of oral thrush and dry oral mucosa, will consider nystatin swish and swallow, also consider hydration and check a urinalysis, if positive, will consider antibiotics. And as far as scalp tenderness is concerned probably due to hair loss, patient is also requesting for methadone, which he used to take for chronic back pain and now not controlled by narcotics, will give him prescription and patient was advised to follow-up with his PMD for chronic back pain who has been prescribing him methadone in the past.., Patient was advised in case there is a worsening of symptom, he need to call us or go to hospital for further evaluation Patient will return to clinic on September 29 for next cycle of chemotherapy with carboplatin/Alimta and his tumor molecular profiling is in process, will follow and make recommendations accordingly Signed By: Refugio Lunsford M.D. <<Signature on File>>
== END 2020-10-09 23:59 | disposition home or self-care (01) ==
LOC: ONCMED 05:44
PROVIDERS: PCP Family Medicine; Visit Provider Internal Medicine Hematology & Oncology
DX: Z51.11 Encounter for antineoplastic chemotherapy (principal); C34.11 Malignant neoplasm of upper lobe, right bronchus or lung; C79.31 Secondary malignant neoplasm of brain; C79.72 Secondary malignant neoplasm of left adrenal gland; C77.8 Secondary and unspecified malignant neoplasm of lymph nodes of multiple regions; F17.210 Nicotine dependence, cigarettes, uncomplicated; G89.29 Other chronic pain; M54.5 Low back pain; M25.551 Pain in right hip; M25.552 Pain in left hip; F10.21 Alcohol dependence, in remission; Z79.899 Other long term (current) drug therapy
CPT/HCPCS: 36415; 36593; 80053; 81003; 82607; 82728; 83540; 83550; 85007; 85025; 96360; 96367; 96372; 96375; 96413; 96417; 99214; 99215; J1100; J1200; J1453; J2469; J3490; J7050; J9045; J9305

== ENCOUNTER 2020-10-26 05:30 | Outpatient (RCR) | payer MEDICAID, SELFPAY ==
[2020-10-22 09:40] LABS: Basophils % 0.2 %; Eosinophils # 0.1 10^3/uL (0.0-0.8); Hematocrit 28.3 % (42.0-52.0); Hemoglobin 9.5 g/dL (11.7-16.6); Lymphocytes # 1.9 10^3/uL (0.8-4.8); Lymphocytes % 41.6 %; Mean Corpuscular HGB Conc 33.6 g/dL (30.0-36.0); Mean Corpuscular Hemoglobin 29.1 pg (28.0-34.0); Mean Corpuscular Volume 86.8 fl (80-94); Monocytes # 1.3 10^3/uL (0.2-0.9); Monocytes % 28.8 %; Neutrophils # 1.17 10^3/uL (1.8-7.7); Neutrophils % 25.3 %; Nucleated Red Blood Cells % 0 %; Platelet Count 472 10^3/cmm (130-400); Red Blood Count 3.26 10^6/uL (4.1-5.3); Red Cell Distribution Width 18.1 % (12.1-15.1); White Blood Count 4.6 10^3/uL (4.0-10.0)
[2020-10-22 10:03] LABS: Alanine Aminotransferase 7 U/L (0-41); Albumin Level 3.6 g/dL (3.5-5.2); Alkaline Phosphatase 116 IU/L (40-130); Anion Gap 17.5 (5-19); Aspartate Amino Transferase 15 U/L (0-40); Blood Urea Nitrogen 9 mg/dL (6-20); Calcium 8.4 mg/dL (8.5-10.5); Carbon Dioxide 27 mmol/L (22-29); Chloride 95 mmol/L (98-107); Globulin 2.8 g/dL (1.3-4.6); Glucose 105 mg/dL (65-115); Osmolality Calculated 281 mOsm/kg (285-295); Potassium 3.5 mmol/L (3.5-5.1); Sodium 136 mmol/L (136-145); Total Bilirubin 0.3 mg/dL (0.15-1.2); Total Protein 6.4 g/dL (6.6-8.7)
[2020-10-22 10:36] LABS: Slide Review Slide Review Perform
--- NOTE | 2020-10-22 11:34 | ONC FU_ITS ---
Dr. Lunsford follow up note Patient: Kevin Omalley Sr Unit #: [id number]: [id number] Dicatated By: Refugio Lunsford M.D.Date of Visit:Oct 22, 2020 Onc Med Follow-up/Prog Note History of Present Illness: ,Mr. Kevin Omalley is a 55-year-old gentleman, with a 20+ year history of heavy smoking still smoke about pack a day, about 30 pound weight loss over the period of 3 months, went to [facility] on July 05, 2020 with progressive dyspnea on exertion right chest discomfort/pain and foggy head-like feeling, patient on methadone for 5 to 8 years for chronic/hip pains and part of evaluation he underwent CTA chest on July 05, 2020 which showed large right upper lobe bulky tumor mass involving primarily apical and posterior segments dimension 13 cm x 10.4 x 11.9 cm. Surrounding peritumoral infiltrate right upper lobe with evidence of lymphangitic spread metastatic disease. Mediastinal and right hilar lymphadenopathy. And 2 subcentimeter hematogenous metastatic pulmonary nodules in the left lower lobe. And left adrenal nodule measuring 19 x 14 mm most likely metastatic., Patient was referred to pulmonology and on July 20, 2020 he underwent bronchoscopy which showed there is a no endobronchial lesion but entrance to the right upper lobe bronchus was completely occluded transbronchial biopsy and lymph node station 7 endoscopic ultrasound guided biopsy was obtained which confirmed non-small cell carcinoma, immunohistochemistry , Confirmed TTF-1 positive, Napsin positive, chromogranin A negative, consistent with primary pulmonary adenocarcinoma Patient denies alcohol use but used to drink heavily but quit alcohol about 15 years ago. Patient denies any night sweats, denies any dysphagia, denies any right eye weakness, denies any blurred vision or double vision Underwent Staging CT PET scan on July 31, 2020 which showed right upper lobe, 9.2 x 12.6 x 11.9 cm mass with SUV of 11.2. Complete occlusion of right upper lobe with postobstructive atelectasis. An FDG +1 cm left lower lobe, 7 mm anterior left lower lobe, 7 mm left upper lobe nodule represent contralateral metastatic disease. Malignant mediastinal adenopathy is present in the subcarinal, right prevascular, right paratracheal, subaortic territories. FDG positive lymph nodes in the right supraclavicular, right cervical level 4 regions of head and neck are consistent with distant mets. Low-grade activity in the left adrenal gland metastatic disease is not excluded. MRI scan of the brain done on August 05, 2020 shows large amount of vasogenic edema throughout right cerebrum. Metastatic lesions are present bilaterally. Largest mass centered in the right temporal lobe measuring 2 x 2.2 x 2.1 cm with a central area of necrosis and numerous additional subcentimeter lesions identified., Was referred to radiation oncology for whole brain radiation therapy which she completed on August 25, 2020 Started on palliative therapy with carboplatin/Alimta on September 09, 2020 As his molecular profiling done on the tissue showed no targetable mutation, PD-L1 0%, TMB 9 Came for follow-up, denies any specific complaint except chronic pain under control with methadone, patient had recent episode of rectal bleed for which he was referred to gastroenterology for EGD and colonoscopy but patient canceled his appointment and wanted to talk to me. His last episode of rectal bleed was about 2 weeks ago. Complaining of generalized weakness and fatigue but no nausea or vomiting, no melena hematochezia, no jaundice but dyspnea on exertion. Tolerating palliative therapy with carboplatin/Alimta well otherwise Medications: Aspirin 81 1 Tablet (of 81 mg) Tablet, chewable Oral daily, Dexamethasone 1 Tablet (of 4 mg) Oral b.i.d., Isosorbide Mononitrate ER 1 Tablet (of 30 mg) Tablet SR 24 HR Oral daily, Losartan Potassium 1 Tablet (of 50 mg) Oral daily, Methadone HCl 1 Tablet (of 10 mg) Oral b.i.d., Metoprolol Tartrate 1 Tablet (of 100 mg) Oral b.i.d., Omeprazole 1 Capsule (of 20 mg) Capsule Delayed Release Oral b.i.d., Simvastatin 1 Tablet (of 40 mg) Oral daily Allergies: No Known Allergies. Review of Systems: Review of Systems is not available for this patient. Vital Signs: Performed on Oct 22, 2020 10:51 Height - 70.00 in Weight - 151.4 lbs (LOW) BSA - 1.85 sq.m BMI - 21.72 Temperature - 97.2 F (LOW) Pulse - 71 /min Respiration - 18 /min BP - 123/85 mm(hg) O2 Sat - 99 % Pain - 7 Fatigue - 9 Performance Status: 1 - No physically strenuous activity, but ambulatory and able to carry out light or sedentary work (e.g. office work, light house work). (ECOG) Physical Examination: ENMT - No mouth sores, no thrush, no jaundice, Respiratory - Lungs are clear to auscultation, Cardiovascular - Regular rate and rhythm of heart, Abdomen - Soft, bowel sounds present, Extremities - No visible edema. Lab/Imaging: Test performed on Sep 30, 2020 08:13 Sodium 137 mmol/L Potassium 3.8 mmol/L Chloride 101 mmol/L CO2 25 mmol/L Anion Gap 14.8 BUN 29 mg/dL Creatinine 1.1 mg/dL Cr Clearance (Est) 75.1100 mL/min eGFR 69.0 mL/min Glucose 107 mg/dL Osmolality - Calculated 290 mOsm/kg Calcium 7.7 mg/dL Protein, Total 5.7 g/dL Albumin 3.1 g/dL Globulin 2.6 g/dL Bilirubin, Total 0.2 mg/dL ALT (SGPT) 18 U/L AST (SGOT) 23 U/L Alkaline Phosphatase 84 IU/L WBC 10.9 10 3/uL Manual Segs % 68 % Manual Bands % 1.0 % RBC 3.24 10 6/uL HGB 9.2 g/dL Manual Lymphs % 17 % Atypical Lymphs % 0.0 % HCT 28.6 % MCV 88.3 fL Total Cells Counted 100 Manual Monos % 6.0 % MCH 28.4 pg Manual Eos % 0 % MCHC 32.2 g/dL Manual Basos % 0.0 % RDW 16.8 % Metamyelocytes % 3.0 % Platelet Count 622 10 3/cmm MPV 9.5 fL Myelocytes % 4.0 % Promyelocytes % 1.0 % CBC Slide Review Slide Review Perform Anisocytosis 1+ Macrocytosis 1+ Poikilocytosis Trace Platelet Estimate Increased Manual Segs Abs 7.4 10/cmm Manual Bands Abs 0.1 10 3/cmm Manual Neutrophils Abs 7.5 10 3/cmm Manual Lymphocytes Abs 1.9 10 3/cmm Manual Monocytes Abs 0.7 10 3/cmm Manual Eosinophils Abs 0.0 10 3/cmm Manual Basophils Abs 0.0 10 3/cmm Test performed on Sep 09, 2020 08:30 Neutrophils 9.39 10 3/uL Lymphocytes 0.7 10 3/uL Monocytes 0.2 10 3/uL Eosinophils 0.0 10 3/uL Basophils 0.0 10 3/uL Neutrophil % 88.3 % Lymphocyte % 6.7 % Monocyte % 2.3 % Eosinophil % 0.4 % Basophils % 0.1 % NRBC % 0 % Impression: Metastatic adenocarcinoma of the lung with extensive brain mets and left adrenal mets and cervical/mediastinal lymphadenopathy, CT PET scan done on July 31, 2020 confirmed right upper lobe mass with complete bronchial obstruction, extensive malignant mediastinal lymphadenopathy, small left lung pulmonary nodules consistent with metastatic disease. Right supraclavicular and jugulodigastric malignant lymph nodes questionable left adrenal uptake and MRI scan of the brain done on August 05, 2020 showed numerous metastatic lesions within the brain, largest lesion in the right temporal and right frontal lobes. Large amount of vasogenic edema in the right cerebellum resulting in 6.4 mm midline shift to the left. Additional smaller, subcentimeter left-sided lesion within the brain. Non-small cell lung cancer involving right upper lung per bronchoscopy done on July 20, 2020 confirmed non-small cell carcinoma involving right upper lobe and station 7 lymph node, immunohistochemistry Confirmed pulmonary adenocarcinoma CTA chest done on July 05, 2020 showed right upper lobe bulky tumor mass involving apical and posterior segments dimension 13 x 10.4 x 11.9 cm. Surrounding peritumoral infiltrate right upper lobe with evidence of lymphangitic metastatic disease. 2 subcentimeter hematogenous metastatic pulmonary nodules left lower lobe. Mediastinal and right hilar lymphadenopathy, subcarinal tumor lymphadenopathy measuring 4.6 x 3.7 x 3.9 cm. Left adrenal nodule measuring 19 x 14 mm most likely metastatic disease. CT PET scan done on July 31, 2020 showed 9.2 x 12.6 x 11.9 cm mass in the right upper lobe with SUV of 11.2. Complete occlusion of right upper lobe with postobstructive atelectasis. FDG positive centimeter left lower lobe, 7 mm anterior left lower lobe, 7 mm left upper lobe nodule represent contralateral metastatic disease. Malignant mediastinal lymphadenopathy. FDG positive lymph nodes in the right supraclavicular right cervical level 4 region. Low-grade activity in the left adrenal gland metastatic disease is not excluded. MRI scan of the brain done on July 26, 2020 shows large amount of vasogenic edema throughout the right cerebrum, metastatic lesions are present bilaterally. Largest mass centered in right temporal lobe measuring 2 x 2.2 x 2.1 cm. Patient was referred to radiation oncology and completed whole brain radiation therapy on August 25, 2020 Started on palliative chemotherapy with carboplatin/Alimta on September 09, 2020, while working on getting molecular profiling as patient has no insurance Chronic smoking over 20 years, still smoking 1 pack a day History of alcohol abuse, quit 15 years ago. Chronic back pain and hip pain, on methadone per PMD Plan: Discussed with patient regarding his labs white blood count 4.6 hemoglobin 9.5 g compared to 9.2 g previously hematocrit 28.3 platelets 473,000 CMP within normal limits, anemia work-up done recently showed iron saturation 61.5% ferritin 788 iron 96 B12 504 Clinically, patient doing reasonably well with no new signs symptom but generalized weakness and fatigue which could be multifactorial including dehydration due to poor oral intake other possibility could be narcotics patient is on methadone on regular basis for chronic pain prior to visit lung cancer diagnosis but now he has metastatic disease and on palliative chemotherapy with carboplatin/Alimta. Patient was advised to maintain hydration and if needed he can come to clinic on as-needed basis for IV fluids he was also advised to follow-up with GI clinic for EGD/colonoscopy for recent episodes of fresh blood per rectum. Patient will return to clinic on Sunday for next cycle #3 chemotherapy with carboplatin/Alimta and his molecular profiling shows no targetable mutation, PD-L1 is 0, TMB 9. But will consider adding Keytruda every 3 weeks along with carboplatin/Alimta. We will also consider follow-up CT PET scan after third cycle with carboplatin/Alimta to assess disease response and plan accordingly. Return to clinic on Sunday for his next scheduled dose of chemotherapy with carboplatin/Alimta and then we will see him back 2 weeks after next chemotherapy with CBC CMP and follow-up CT PET scan and will also refer him to pain clinic for his chronic pain management Signed By: Refugio Lunsford M.D. <<Signature on File>>
[2020-10-26] MEDS: sodium chloride 0.9% 250 ML 75 ML IV (11:15)
[2020-10-26] MEDS: famotidine 20 mg/2 mL INJ IVP (11:17)
[2020-10-26] MEDS: palonosetron 0.25 mg/5 mL SDV IV (11:22)
[2020-10-26] MEDS: diphenhydrAMINE 50 mg/mL SDV 1mL 25 MG IV (11:22)
[2020-10-26] MEDS: fosaprepitant 150 MG in sodium chloride 0.9% 150 ML 300 MG IV (11:45)
== END 2020-11-09 23:59 | disposition home or self-care (01) ==
LOC: ONCMED 05:30
PROVIDERS: PCP Family Medicine; Visit Provider Internal Medicine Hematology & Oncology
DX: Z51.12 Encounter for antineoplastic immunotherapy (principal); Z51.11 Encounter for antineoplastic chemotherapy; C34.11 Malignant neoplasm of upper lobe, right bronchus or lung; C79.31 Secondary malignant neoplasm of brain; C79.72 Secondary malignant neoplasm of left adrenal gland; C77.8 Secondary and unspecified malignant neoplasm of lymph nodes of multiple regions; C78.02 Secondary malignant neoplasm of left lung; F17.210 Nicotine dependence, cigarettes, uncomplicated; M54.5 Low back pain; M25.551 Pain in right hip; M25.552 Pain in left hip; G89.29 Other chronic pain; F10.21 Alcohol dependence, in remission; Z79.891 Long term (current) use of opiate analgesic; Z79.899 Other long term (current) drug therapy
CPT/HCPCS: 36591; 80053; 85025; 96367; 96375; 96413; 96417; 99214; J1100; J1200; J1453; J2469; J3490; J7050; J9045; J9305

== ENCOUNTER 2020-11-10 05:28 | Outpatient (RCR) | payer MEDICAID, SELFPAY ==
[2020-11-10 11:44] LABS: Hemoglobin 6.9 g/dL (11.7-16.6); Lymphocytes # 0.6 10^3/uL (0.8-4.8); Lymphocytes % 82.2 %; Mean Corpuscular HGB Conc 35.4 g/dL (30.0-36.0); Mean Corpuscular Hemoglobin 30.7 pg (28.0-34.0); Mean Corpuscular Volume 86.7 fl (80-94); Monocytes # 0.1 10^3/uL (0.2-0.9); Monocytes % 9.6 %; Neutrophils % 8.2 %; Nucleated Red Blood Cells % 0 %; Red Blood Count 2.25 10^6/uL (4.1-5.3); Red Cell Distribution Width 18.2 % (12.1-15.1)
[2020-11-10 12:02] LABS: Alanine Aminotransferase 8 U/L (0-41); Albumin Level 3.7 g/dL (3.5-5.2); Alkaline Phosphatase 81 IU/L (40-130); Anion Gap 20.5 (5-19); Aspartate Amino Transferase 12 U/L (0-40); Blood Urea Nitrogen 51 mg/dL (6-20); Calcium 8.7 mg/dL (8.5-10.5); Carbon Dioxide 25 mmol/L (22-29); Chloride 93 mmol/L (98-107); Globulin 2.7 g/dL (1.3-4.6); Glomerular Filtration Rate 29.5 mL/min (90-130); Glucose 110 mg/dL (65-115); Osmolality Calculated 294 mOsm/kg (285-295); Potassium 3.5 mmol/L (3.5-5.1); Sodium 135 mmol/L (136-145); Total Bilirubin 0.4 mg/dL (0.15-1.2); Total Protein 6.4 g/dL (6.6-8.7)
[2020-11-10 12:36] LABS: Hematocrit 19.5 % (42.0-52.0); Neutrophils # 0.06 10^3/uL (1.8-7.7); Platelet Count 9 10^3/cmm (130-400); Slide Review Slide Review Perform; White Blood Count 0.7 10^3/uL (4.0-10.0)
--- NOTE | 2020-11-11 15:47 | ONC FU_ITS ---
Dr. Lunsford follow up note Patient: Kevin Omalley Sr Unit #: [id number]: 1965 Dicatated By: Refugio Lunsford M.D.Date of Visit:Nov 10, 2020 Onc Med Follow-up/Prog Note History of Present Illness: ,Mr. Kevin Omalley is a 55-year-old gentleman, with a 20+ year history of heavy smoking still smoke about pack a day, about 30 pound weight loss over the period of 3 months, went to [facility] on July 05, 2020 with progressive dyspnea on exertion right chest discomfort/pain and foggy head-like feeling, patient on methadone for 5 to 8 years for chronic/hip pains and part of evaluation he underwent CTA chest on July 05, 2020 which showed large right upper lobe bulky tumor mass involving primarily apical and posterior segments dimension 13 cm x 10.4 x 11.9 cm. Surrounding peritumoral infiltrate right upper lobe with evidence of lymphangitic spread metastatic disease. Mediastinal and right hilar lymphadenopathy. And 2 subcentimeter hematogenous metastatic pulmonary nodules in the left lower lobe. And left adrenal nodule measuring 19 x 14 mm most likely metastatic., Patient was referred to pulmonology and on July 20, 2020 he underwent bronchoscopy which showed there is a no endobronchial lesion but entrance to the right upper lobe bronchus was completely occluded transbronchial biopsy and lymph node station 7 endoscopic ultrasound guided biopsy was obtained which confirmed non-small cell carcinoma, immunohistochemistry , Confirmed TTF-1 positive, Napsin positive, chromogranin A negative, consistent with primary pulmonary adenocarcinoma Patient denies alcohol use but used to drink heavily but quit alcohol about 15 years ago. Patient denies any night sweats, denies any dysphagia, denies any right eye weakness, denies any blurred vision or double vision Underwent Staging CT PET scan on July 31, 2020 which showed right upper lobe, 9.2 x 12.6 x 11.9 cm mass with SUV of 11.2. Complete occlusion of right upper lobe with postobstructive atelectasis. An FDG +1 cm left lower lobe, 7 mm anterior left lower lobe, 7 mm left upper lobe nodule represent contralateral metastatic disease. Malignant mediastinal adenopathy is present in the subcarinal, right prevascular, right paratracheal, subaortic territories. FDG positive lymph nodes in the right supraclavicular, right cervical level 4 regions of head and neck are consistent with distant mets. Low-grade activity in the left adrenal gland metastatic disease is not excluded. MRI scan of the brain done on August 05, 2020 shows large amount of vasogenic edema throughout right cerebrum. Metastatic lesions are present bilaterally. Largest mass centered in the right temporal lobe measuring 2 x 2.2 x 2.1 cm with a central area of necrosis and numerous additional subcentimeter lesions identified., Was referred to radiation oncology for whole brain radiation therapy which she completed on August 25, 2020 Started on palliative therapy with carboplatin/Alimta on September 09, 2020 As his molecular profiling done on the tissue showed no targetable mutation, PD-L1 0%, TMB 9 Follow-up CT PET scan done after 3 cycles of chemo with carboplatin/Alimta on October 30, 2020 showed interval improvement in right upper lobe mass, interval improvement in malignant mediastinal lymphadenopathy. Improvement in the left lung nodules. Resolution of right supraclavicular and cervical lymph nodes. Resolution of left adrenal uptake Came for follow-up, complaining of generalized weakness and fatigue and near syncopal attacks, denies any fever chills but his girlfriend is spiking fever, denies any hemoptysis or hematemesis but off and on bleeding per rectum, no jaundice, no cough or sore throat, no dysuria but dark-colored urine. And feel dizzy lightheaded when stand up and walk. No seizure-like activity. Medications: Aspirin 81 1 Tablet (of 81 mg) Tablet, chewable Oral daily, Dexamethasone 1 Tablet (of 4 mg) Oral b.i.d., Isosorbide Mononitrate ER 1 Tablet (of 30 mg) Tablet SR 24 HR Oral daily, Losartan Potassium 1 Tablet (of 50 mg) Oral daily, Methadone HCl 1 Tablet (of 10 mg) Oral b.i.d., Metoprolol Tartrate 1 Tablet (of 100 mg) Oral b.i.d., Omeprazole 1 Capsule (of 20 mg) Capsule Delayed Release Oral b.i.d., Simvastatin 1 Tablet (of 40 mg) Oral daily Allergies: No Known Allergies. Review of Systems: Review of Systems is not available for this patient. Vital Signs: Performed on Nov 10, 2020 14:59 Height - 70.00 in Temperature - 98.3 F (LOW) Pulse - 76 /min Respiration - 20 /min BP - 77/51 mm(hg) (LOW) O2 Sat - 96 % Pain - 10 Fatigue - 10 Performance Status: 3 - Capable of only limited self-care, confined to bed or chair more than 50% of waking hours. (ECOG) Physical Examination: ENMT - Dry oral mucosa, poor oral hygiene, no thrush, no mouth sores, no jaundice, Respiratory - Poor air entry otherwise clear, Cardiovascular - Tachycardia, Abdomen - Soft, bowel sounds present, Extremities - Trace edema. Lab/Imaging: Test performed on Oct 25, 2020 08:05 Creatinine 1.0 mg/dL Cr Clearance (Est) 82.62 mL/min Test performed on Sep 30, 2020 08:13 Sodium 137 mmol/L Potassium 3.8 mmol/L Chloride 101 mmol/L CO2 25 mmol/L Anion Gap 14.8 BUN 29 mg/dL eGFR 69.0 mL/min Glucose 107 mg/dL Osmolality - Calculated 290 mOsm/kg Calcium 7.7 mg/dL Protein, Total 5.7 g/dL Albumin 3.1 g/dL Globulin 2.6 g/dL Bilirubin, Total 0.2 mg/dL ALT (SGPT) 18 U/L AST (SGOT) 23 U/L Alkaline Phosphatase 84 IU/L WBC 10.9 10 3/uL Manual Segs % 68 % Manual Bands % 1.0 % RBC 3.24 10 6/uL HGB 9.2 g/dL Manual Lymphs % 17 % Atypical Lymphs % 0.0 % HCT 28.6 % MCV 88.3 fL Total Cells Counted 100 Manual Monos % 6.0 % MCH 28.4 pg Manual Eos % 0 % MCHC 32.2 g/dL Manual Basos % 0.0 % RDW 16.8 % Metamyelocytes % 3.0 % Platelet Count 622 10 3/cmm MPV 9.5 fL Myelocytes % 4.0 % Promyelocytes % 1.0 % CBC Slide Review Slide Review Perform Anisocytosis 1+ Macrocytosis 1+ Poikilocytosis Trace Platelet Estimate Increased Manual Segs Abs 7.4 10/cmm Manual Bands Abs 0.1 10 3/cmm Manual Neutrophils Abs 7.5 10 3/cmm Manual Lymphocytes Abs 1.9 10 3/cmm Manual Monocytes Abs 0.7 10 3/cmm Manual Eosinophils Abs 0.0 10 3/cmm Manual Basophils Abs 0.0 10 3/cmm Test performed on Sep 09, 2020 08:30 Neutrophils 9.39 10 3/uL Lymphocytes 0.7 10 3/uL Monocytes 0.2 10 3/uL Eosinophils 0.0 10 3/uL Basophils 0.0 10 3/uL Neutrophil % 88.3 % Lymphocyte % 6.7 % Monocyte % 2.3 % Eosinophil % 0.4 % Basophils % 0.1 % NRBC % 0 % Impression: Metastatic adenocarcinoma of the lung with extensive brain mets and left adrenal mets and cervical/mediastinal lymphadenopathy, CT PET scan done on July 31, 2020 confirmed right upper lobe mass with complete bronchial obstruction, extensive malignant mediastinal lymphadenopathy, small left lung pulmonary nodules consistent with metastatic disease. Right supraclavicular and jugulodigastric malignant lymph nodes questionable left adrenal uptake and MRI scan of the brain done on August 05, 2020 showed numerous metastatic lesions within the brain, largest lesion in the right temporal and right frontal lobes. Large amount of vasogenic edema in the right cerebellum resulting in 6.4 mm midline shift to the left. Additional smaller, subcentimeter left-sided lesion within the brain. Non-small cell lung cancer involving right upper lung per bronchoscopy done on July 20, 2020 confirmed non-small cell carcinoma involving right upper lobe and station 7 lymph node, immunohistochemistry Confirmed pulmonary adenocarcinoma CTA chest done on July 05, 2020 showed right upper lobe bulky tumor mass involving apical and posterior segments dimension 13 x 10.4 x 11.9 cm. Surrounding peritumoral infiltrate right upper lobe with evidence of lymphangitic metastatic disease. 2 subcentimeter hematogenous metastatic pulmonary nodules left lower lobe. Mediastinal and right hilar lymphadenopathy, subcarinal tumor lymphadenopathy measuring 4.6 x 3.7 x 3.9 cm. Left adrenal nodule measuring 19 x 14 mm most likely metastatic disease. CT PET scan done on July 31, 2020 showed 9.2 x 12.6 x 11.9 cm mass in the right upper lobe with SUV of 11.2. Complete occlusion of right upper lobe with postobstructive atelectasis. FDG positive centimeter left lower lobe, 7 mm anterior left lower lobe, 7 mm left upper lobe nodule represent contralateral metastatic disease. Malignant mediastinal lymphadenopathy. FDG positive lymph nodes in the right supraclavicular right cervical level 4 region. Low-grade activity in the left adrenal gland metastatic disease is not excluded. MRI scan of the brain done on July 26, 2020 shows large amount of vasogenic edema throughout the right cerebrum, metastatic lesions are present bilaterally. Largest mass centered in right temporal lobe measuring 2 x 2.2 x 2.1 cm. Patient was referred to radiation oncology and completed whole brain radiation therapy on August 25, 2020 Started on palliative chemotherapy with carboplatin/Alimta on September 09, 2020, while working on getting molecular profiling as patient has no insurance Chronic smoking over 20 years, still smoking 1 pack a day History of alcohol abuse, quit 15 years ago. Chronic back pain and hip pain, on methadone per PMD Plan: Discussed with patient regarding his labs white blood count 0.7 hemoglobin 6.9 hematocrit 19.5 platelets 9000 absolute neutrophil count 60 Follow-up CT PET scan shows good response to systemic therapy with resolution of right supraclavicular/cervical lymph nodes as well as left adrenal uptake and significant improvement in the right upper lobe mass as well as malignant mediastinal lymph nodes and left lung nodules. Clinically, patient is in moderate to severe distress due to severe pancytopenia,, which is somewhat unusual compared to previous lab work-up during chemotherapy so concern is whether patient having Covid infection as his girlfriend is having fever signs symptom suggestive of some viral infection, at this point we will send him to [facility] for evaluation and inpatient care especially with blood transfusion as well as platelet transfusion and broad-spectrum antibiotics, panculture and Neupogen and also suggest GI evaluation for off and on rectal bleeding Signed By: Refugio Lunsford M.D. <<Signature on File>>
== END 2020-11-10 13:00 | disposition home or self-care (01) ==
LOC: ONCMED 05:28
PROVIDERS: PCP Family Medicine; Visit Provider Internal Medicine Hematology & Oncology
DX: C34.01 Malignant neoplasm of right main bronchus (principal); C78.02 Secondary malignant neoplasm of left lung; C79.31 Secondary malignant neoplasm of brain; C79.72 Secondary malignant neoplasm of left adrenal gland; C77.8 Secondary and unspecified malignant neoplasm of lymph nodes of multiple regions; F17.210 Nicotine dependence, cigarettes, uncomplicated; F10.21 Alcohol dependence, in remission; M54.5 Low back pain; M25.552 Pain in left hip; M25.551 Pain in right hip; G89.29 Other chronic pain; Z79.899 Other long term (current) drug therapy; Z92.21 Personal history of antineoplastic chemotherapy
CPT/HCPCS: 36591; 80053; 85025; 99214

== ENCOUNTER 2020-11-10 13:38 | Inpatient (IN) | payer MEDICAID, SELFPAY ==
[2020-11-10] VITALS (16 sets, daily range): BP systolic 81–114; BP diastolic 43–78; PULSE 60–71; RESP 12–20; TEMP 35.9–37; O2SAT 95–100; BMI 25.1; BMI 19.7
--- NOTE | 2020-11-10 14:14 | CT_ITS ---
WS: [id number] CT HEAD NONCONTRAST HISTORY: rule out bleed, low platelet TECHNIQUE: Contiguous axial imaging performed through the brain in 2.5 mm imaging. Bone and soft tiss ue windows. Sagittal and coronal reformats reviewed. All CT scans at [facility] use at le ast one of these dose optimization techniques: automated exposure control; mA and/or kV adjustment pe r patient size (includes targeted exams where dose is matched to clinical indication); or iterative r econstruction. DLP: 1952.88 mGy.cm COMPARISON: None available. No acute intracranial hemorrhage, midline shift or mass effect. Mild atrophy and very minimal chronic microvascular ischemic changes. No prior infarct. Ventricles: Normal size with no hydrocephalus. No inferior displacement of cerebellar tonsils. Paranasal sinuses: As visualized are clear. Mastoid air cells: Well pneumatized. Calvarium and scalp: Skull is intact with no soft tissue edema or swelling. CT/CT head wo con* [id number] IMPRESSION: 1. No acute intracranial hemorrhage or intraventricular hemorrhage. 2. Very minimal cerebral atrophy and small vessel ischemic disease.
--- NOTE | 2020-11-10 14:17 | ED_ITS ---
HPI - General Adult General: Chief complaint: Weakness Stated complaint: GEN, SENT BY ADELIA Time Seen by Provider: 11/10/20 13:56 History of Present Illness: HPI narrative: Patient is a 55-year-old male with a history of lung cancer diagnosed in 06/2020 who underwent 3 cycles of chemotherapy followed by Dr. Lunsford presenting to the emergency room due to lab abnormality from routine blood work and need for wokrup for pancytopenia. Clinic blood work showed the patient had a white count of point 7K, platelet of 9K, hemoglobin 6.9. Patient has no focal complaints including fever/diarrhea, abdominal complaints, complaints or respiratory complaints. Onset: chronic Duration:ongoing Location:home Severity:severe Review of Systems Narrative: Constitutional: No fever, no chills. +fatigue/generalized weakness HEENT: No vision changes CV: No chest pain, no palpitations PULM: no cough, no dyspnea. GI: No abdominal pain, no N/V/D. : No dysuria MSKEL: No muscle pain SKIN: No new rashes, no lesions. NEURO: No headache, no focal weakness. HEME: No visible bruises PSYCH: Normal mood PFSH ED PFSH: Medical History Cancer of right lung COPD (chronic obstructive pulmonary disease) GERD (gastroesophageal reflux disease) History of TIA (transient ischemic attack) HTN (hypertension) Hyperlipidemia Surgical History History of lung biopsy 2020 Port-A-Cath in place (08/04/20) S/P bronchoscopy Family History Father Heart attack Brother Heart attack Social History Smoking and tobacco status: current every day smoker cigarettes Packs smoked per day: 0.25 Years cigarettes smoked: 40 Quit status (tobacco): considering quitting Second hand smoke exposure: Yes Smoking risk assessment/counseling performed?: Yes Alcohol intake: never Desire information about substance/drug rehabilitation?: No Lives independently: Yes Household members: friend(s) Marital status: Single service: No Current occupational status: employed Pets and animals: Yes History of recent travel: No Current gender identity: Male Physical Exam Narrative: EXAM NARRATIVE: Head: Atraumatic Eyes: PERRL, conjunctiva without injection ENT: Mucous membrane moist NECK: Supple, ROM intact LUNGS: LCTAB, no crackles/rhonchi CV: RRR ABDOMEN: Soft, nontender in all quadrants EXTREMITY: Normal ROM SKIN: No rash or erythema NEURO: Awake and alert, no focal motor deficits PSYCH: Normal mood and affect Course Vital Signs: Vital signs: Vital Signs Temperature 98.1 F 11/11/20 04:00 Pulse Rate 64 11/11/20 04:00 Respiratory Rate 18 11/11/20 06:06 Blood Pressure 111/65 11/11/20 04:00 Pulse Oximetry 98 11/11/20 06:06 MDM - General Adult MDM Narrative: Medical decision making narrative: 55-year-old male presenting to the emergency room for concerns of pancytopenia. Repeat blood work showed similar findings. Patient will be transfused 1 units of leukoreduced irradiated blood and 2 units of leukoreduced platelets. Per request of Dr. Lunsford, will work patient up for sepsis at this time. Received cefepime in the emergency room per request of specialist. Disposition: Admission Lab Data: Labs: Lab Results 11/10/20 11/10/20 11/10/20 Range/Units 14:15 14:15 14:15 WBC 1.2 L (4.0-10.0) 10^3/ uL RBC 2.36 L (4.1-5.3) 10^6/u L Hgb 7.3 L (11.7-16.6) g/dL Hct 20.6 L* (42.0-52.0) % MCV 87.3 (80-94) fl MCH 30.9 (28.0-34.0) pg MCHC 35.4 (30.0-36.0) g/dL RDW 18.1 H (12.1-15.1) % Plt Count 10 L* (130-400) 10^3/c mm MPV 12.9 H (7.4-10.4) fL Neut % (Auto) 7.5 % Lymph % (Auto) 80.7 % Mcminn % (Auto) 11.8 % Eos % (Auto) 0.0 % Baso % (Auto) 0.0 % Neut # (Auto) 0.09 L* (1.8-7.7) 10^3/u L Lymph # (Auto) 1.0 (0.8-4.8) 10^3/u L Mcminn # (Auto) 0.1 L (0.2-0.9) 10^3/u L Eos # (Auto) 0.0 (0.0-0.8) 10^3/u L Baso # (Auto) 0.0 (0.0-0.1) 10^3/u L Nucleated RBC % (a uto) 0 % Nucleated RBCs # 0.0 /100WBC Sodium 133 L (136-145) mmol/L Potassium 3.1 L (3.5-5.1) mmol/L Chloride 92 L (98-107) mmol/L Carbon Dioxide 25 (22-29) mmol/L Anion Gap 19.1 H (5-19) BUN 45 H (6-20) mg/dL Creatinine 2.3 H (0.7-1.2) mg/dL GFR Calculation 29.5 L (90-130) mL/min Glucose 105 (65-115) mg/dL Calculated Osmolal ity 288 (285-295) mOsm/k g Lactate (0.5-2.2) mmol/L Calcium 9.2 (8.5-10.5) mg/dL Blood Type A Positive Rho(D) Type Positive Antibody Screen Negative Crossmatch See Detail 11/10/20 Range/Units 14:15 WBC (4.0-10.0) 10^3/ uL RBC (4.1-5.3) 10^6/u L Hgb (11.7-16.6) g/dL Hct (42.0-52.0) % MCV (80-94) fl MCH (28.0-34.0) pg MCHC (30.0-36.0) g/dL RDW (12.1-15.1) % Plt Count (130-400) 10^3/c mm MPV (7.4-10.4) fL Neut % (Auto) % Lymph % (Auto) % Mcminn % (Auto) % Eos % (Auto) % Baso % (Auto) % Neut # (Auto) (1.8-7.7) 10^3/u L Lymph # (Auto) (0.8-4.8) 10^3/u L Mcminn # (Auto) (0.2-0.9) 10^3/u L Eos # (Auto) (0.0-0.8) 10^3/u L Baso # (Auto) (0.0-0.1) 10^3/u L Nucleated RBC % (a uto) % Nucleated RBCs # /100WBC Sodium (136-145) mmol/L Potassium (3.5-5.1) mmol/L Chloride (98-107) mmol/L Carbon Dioxide (22-29) mmol/L Anion Gap (5-19) BUN (6-20) mg/dL Creatinine (0.7-1.2) mg/dL GFR Calculation (90-130) mL/min Glucose (65-115) mg/dL Calculated Osmolal ity (285-295) mOsm/k g Lactate 1.9 (0.5-2.2) mmol/L Calcium (8.5-10.5) mg/dL Blood Type Rho(D) Type Antibody Screen Crossmatch Imaging Data^: Other Imaging: Radiologist's impression: [address] [id number] Scan ReportSigned Patient: Kevin Omalley Sr #: [id number]: 1965Acct#:[id number]/Sex: 55 / MADM Date: 11/10/20Loc: ER Room/Bed:Attending Dr: Ordering Provider/Ordering MD: Kait Soliman MD Date of Service: 11/10/20 Procedure(s): CT head wo con* [id number] Accession Number(s): [id number] Report Number: [id number] WS: [id number] CT HEAD NONCONTRAST HISTORY: rule out bleed, low platelet TECHNIQUE: Contiguous axial imaging performed through the brain in 2.5 mm imaging. Bone and soft tissue windows. Sagittal and coronal reformats reviewed. All CT scans at [facility] use at least one of these dose optimization techniques: automated exposure control; mA and/or kV adjustment per patient size (includes targeted exams where dose is matched to clinical indication); or iterative reconstruction. DLP: 1952.88 mGy.cm COMPARISON: None available. No acute intracranial hemorrhage, midline shift or mass effect. Mild atrophy and very minimal chronic microvascular ischemic changes. No prior infarct. Ventricles: Normal size with no hydrocephalus. No inferior displacement of cerebellar tonsils. Paranasal sinuses: As visualized are clear. Mastoid air cells: Well pneumatized. Calvarium and scalp: Skull is intact with no soft tissue edema or swelling. CT/CT head wo con* [id number] IMPRESSION: 1. No acute intracranial hemorrhage or intraventricular hemorrhage. 2. Very minimal cerebral atrophy and small vessel ischemic disease. Dictated By:Preeti Reis DOSigned By:Preeti Reis DOSigned Date/Time:11/10/20 1531DD/ 1529 Discharge Plan Discharge Patient Disposition: Admitted As Inpatient Admit Provider: Bolivar Bob Clinical Impression: Pancytopenia, Lung cancer Condition: Stable Coding Level of Care Code ED Job Placement Specialist for Donovan Sanchez
[2020-11-10] MEDS: cefepime 1,000 MG in sodium chloride 0.9% (plus) 50 ML 100 MG IV (14:30)
[2020-11-10 14:33] LABS: Hemoglobin 7.3 g/dL (11.7-16.6); Lymphocytes % 80.7 %; Mean Corpuscular HGB Conc 35.4 g/dL (30.0-36.0); Mean Corpuscular Hemoglobin 30.9 pg (28.0-34.0); Mean Corpuscular Volume 87.3 fl (80-94); Mean Platelet Volume 12.9 fL (7.4-10.4); Monocytes # 0.1 10^3/uL (0.2-0.9); Monocytes % 11.8 %; Neutrophils % 7.5 %; Nucleated Red Blood Cells % 0 %; Positive C 1; Positive M 1; Red Blood Count 2.36 10^6/uL (4.1-5.3); Red Cell Distribution Width 18.1 % (12.1-15.1); White Blood Count 1.2 10^3/uL (4.0-10.0)
[2020-11-10 14:56] LABS: Hematocrit 20.6 % (42.0-52.0); Neutrophils # 0.09 10^3/uL (1.8-7.7); Platelet Count 10 10^3/cmm (130-400)
[2020-11-10 14:57] LABS: Anion Gap 19.1 (5-19); Blood Urea Nitrogen 45 mg/dL (6-20); Calcium 9.2 mg/dL (8.5-10.5); Carbon Dioxide 25 mmol/L (22-29); Chloride 92 mmol/L (98-107); Glomerular Filtration Rate 29.5 mL/min (90-130); Glucose 105 mg/dL (65-115); Lactate (Lactic Acid level) 1.9 mmol/L (0.5-2.2); Osmolality Calculated 288 mOsm/kg (285-295); Potassium 3.1 mmol/L (3.5-5.1); Sodium 133 mmol/L (136-145)
--- NOTE | 2020-11-10 14:57 | ECG_ITS ---
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 Measurements Intervals [place] Rate: 70 P: 82 AL: 167 QRS: 67 QRSD: 98 T: 69 QT: 423 QTc: 458 Interpretive Statements SINUS RHYTHM RIGHT ATRIAL ENLARGEMENT [0.3mV P-WAVE] Compared to ECG 07/05/2020 16:55:28 Atrial abnormality now present Electronically Signed On 11-10-2020 19:44:06 CDT by Yvonne Fletcher M.D. [id number]
--- NOTE | 2020-11-10 15:07 | PC.PHAR ---
PT UNABLE TO CONFIRM MEDICATIONS. I TRIED TO CONTACT THE PERSON WHO HELPS HIM BUT WAS UNABLE TO REACH HER. I SPOKE WITH [facility] WHO CONFIRMED THE MEDICATION THE HAD FOR HIM. I NOTED THE MEDICATIONS THAT WHERE ON THAT MEDICATION LIST.
--- NOTE | 2020-11-10 15:32 | P.HP_ITS ---
Providers/Chief Complaint Chief Complaint: GEN, SENT BY ADELIA History of Present Illness Pleasant 55-year-old gentleman with NSCLC, currently undergoing chemotherapy, last chemo 3 days ago is admitted due to severe pancytopenia with leukopenia, neutropenia with ANC of 90, platelet of 10,000, hemoglobin yesterday was 6.9, today will be better at 7.3. He reports has been having some chills, but denies fever. Denies any more cough than usual. He continues to smoke cigarettes. Denies headache. He denies any mouth pain or pain with swallowing. Has had an episode of vomiting 3 days ago. Denies any persistent nausea vomiting. Denies diarrhea. No abdominal pain or discomfort. In the event of cardiopulmonary arrest he would not want to receive chest compressions or intubation. In the event of respiratory failure and impending cardiac arrest he would be willing to undergo intubation, mechanical ventilation but only on temporary basis. Review of Systems Const: Reports: chills and malaise; Denies: fever(s) or body aches Eyes: Denies: change in vision or eye redness ENMT: Denies: throat pain, oral sores or ear or mastoid pain Card: Denies: chest pain, edema, pre-syncope or dyspnea on exertion Resp: Denies: dyspnea, productive cough, change in phlegm color or hemoptysis GI: Reports: vomiting (3d ago); Denies: abdominal pain, nausea, hematemesis, dysphagia, diarrhea, constipation, hematochezia or melena : Denies: flank pain, difficulty urinating, urinary frequency or hematuria Musc: Denies: back pain, joint swelling or joint redness Skin/Breast: Reports: other (Notes some skin dryness on his forehead.); Denies: rash, sores or new lesions Neuro: Denies: headache(s), numbness in extremities, weakness in extremities, dizziness, confusion or seizure-like activity Endo: Denies: polyuria or polydipsia Maycol/Lymph: Denies: easy bleeding or purpura All/Imm: Denies: urticaria, throat swelling or tongue swelling Medications/Allergies Home Medications Medication Instructions Recorded Confirmed Last Taken Type aspirin 81 mg PO DAILY@06 07/05/20 11/10/20 07/19/20 History cetirizine 10 mg PO DAILY 07/05/20 11/10/20 08/03/20 History ibuprofen 600 mg PO BID PRN 07/05/20 11/10/20 08/03/20 History isosorbide mononitrate 15 mg PO DAILY@07/05/20 11/10/20 08/04/20 06:00 History losartan 50 mg PO DAILY@199907/05/20 11/10/20 08/03/20 History methadone 10 mg PO BID@,07/05/20 11/10/20 08/04/20 06:00 History metoprolol tartrate 100 mg PO BID@,07/05/20 11/10/20 08/04/20 06:00 History omeprazole 20 mg PO BID@,07/05/20 11/10/20 08/03/20 History simvastatin 40 mg PO BEDTIME@199907/05/20 11/10/20 08/03/20 History albuterol sulfate 90 mcg/actuation 2 puff INHALATION Q6H PRN MDD SEE 07/16/20 11/10/20 07/20/20 04:30 History aerosol inhaler PHARMACY COMMENT docusate sodium [Colace] 100 mg PO BID #30 cap 08/04/20 11/10/20 Unknown Rx hydrocodone-acetaminophen 1 tab PO Q6H PRN #20 tab 08/04/20 11/10/20 Unknown Rx ondansetron HCl [Zofran] 4 mg PO Q6H PRN #20 tab 08/04/20 11/10/20 Unknown Rx dexamethasone 4 mg tablet 4 mg PO BID 08/06/20 11/10/20 Unknown History folic acid 1 mg PO DAILY 11/10/20 11/10/20 Unknown History lorazepam 0.5 mg PO BID 11/10/20 11/10/20 Unknown History nystatin See Rx Instructions .ROUTE .COMPLEX 11/10/20 11/10/20 Unknown History prochlorperazine maleate 10 mg PO Q6H PRN 11/10/20 11/10/20 Unknown History [Compazine] Allergies Allergy/AdvReac Type Severity Reaction Status Date / Time No Known Allergies Allergy Verified 08/06/20 10:25 PFSH Acute PFSH: Medical History Cancer of right lung COPD (chronic obstructive pulmonary disease) GERD (gastroesophageal reflux disease) History of TIA (transient ischemic attack) HTN (hypertension) Hyperlipidemia Surgical History History of lung biopsy 2020 Port-A-Cath in place (08/04/20) S/P bronchoscopy Family History Father Heart attack Brother Heart attack Social History Smoking and tobacco status: current every day smoker cigarettes Packs smoked per day: 0.25 Years cigarettes smoked: 40 Quit status (tobacco): considering quitting Second hand smoke exposure: Yes Smoking risk assessment/counseling performed?: Yes Alcohol intake: never Desire information about substance/drug rehabilitation?: No Lives independently: Yes Household members: friend(s) Marital status: Single service: No Current occupational status: employed Pets and animals: Yes History of recent travel: No Current gender identity: Male Vitals/I&O/Wt Last Vital Signs Temp 97.9 F 11/10/20 14:23 Pulse 71 11/10/20 14:37 Resp 18 11/10/20 14:37 BP 85/59 11/10/20 14:37 Weight last 48 hrs Weight 81.647 kg Physical Exam Const: COMMON NORMALS: no acute distress and patient oriented x3 GENERAL APPEARANCE: frail appearing OTHER: Pale HENMT: COMMON NORMALS: oropharynx normal (No petechia, no intraoral hemorrhages.) Neck/C-Spine: COMMON NORMALS: no JVD Chest: OTHER: No erythema, swelling, drainage, bleeding around Port-A-Cath. Resp: COMMON NORMALS: normal respiratory effort and clear to auscultation bilaterally AUSCULTATION: clear to auscultation bilaterally Cardio: COMMON NORMALS: no JVD, regular rhythm, S1 normal heart sound present, S2 normal heart sound present and No murmurs present (Cardio) RHYTHM: regular rhythm HEART SOUNDS: S1 normal heart sound present and S2 normal heart sound present GI: COMMON NORMALS: Normal to inspection, nondistended, normoactive bowel sounds present, Soft to palpation and non-tender PALPATION: Yes Soft to palpation Extremity: COMMON NORMALS: no joint enlargement and no pedal edema Neuro: COMMON NORMALS: patient oriented x3 and moves all extremities Skin: COMMON NORMALS: no rashes or lesions noted GENERAL SKIN EXAM: no rashes or lesions noted Data : 11/10/20 14:15 11/10/20 14:15 Micro: Microbiology 11/10/20 14:40 Blood Culture - Preliminary Blood SPECIMEN COLLECTED 11/10/20 14:40 Blood Culture - Preliminary Blood SPECIMEN COLLECTED A&P Assessment and plan (1) Pancytopenia: Suspected possibly after chemotherapy. Although has been having some chills, reported dysuria to his oncologist. Requested urinalysis. Chest x-ray appreciated. Blood cultures have been collected in ER. Continue empiric antibiotic at this time. Concern is that he may not be spiking fever given severe pancytopenia. This is also first time he has developed as severe pancytopenia in the setting of chemotherapy. Pending transfusion of platelets and PRBC. As per discussion with his oncologist subsequently start on Neupogen 420 MCG subcu daily until ANC rising to 500. Symptomatic anemia, he is feeling weak. Discussed with him regarding transfusio n of PRBC alongside platelets. Neutropenic precautions. Status: Acute (2) JUS (acute kidney injury): Hold losartan. Blood pressure soft. Hold antihypertensives. Monitor blood pressure. Status: Acute (3) Port-A-Cath in place: Blood cultures obtained in ER. Follow-up. Monitor for any changes in or around Port-A-Cath. Status: Acute (4) Cancer of right lung: Status: Acute (5) COPD (chronic obstructive pulmonary disease): Not currently in exacerbation. Monitor. Status: Acute (6) Smoking addiction: We discussed for 5 minutes smoking cessation especially setting of lung cancer. Recommended he quit smoking. He verbalized understanding. Knows that he should. Status: Acute (7) Methadone use: Dose confirmed with pharmacy. Status: Acute (8) Hypokalemia: Mild. Check magnesium. Replace cautiously given JUS. Status: Acute Additional A&P Information Minimal white exudate on the tongue. Continue nystatin swish and swallow. Attestations Medical Necessity Statement*: Admission over 2 midnights is going to be needed for assessment management of pancytopenia more severe than usual, assessment for possible sepsis, empiric antibiotic coverage, transfusion of blood products due to symptomatic anemia, severe thrombocytopenia with risk of bleeding, monitoring of blood counts. Coding Level of Care Code Acute Community Outreach Coordinator for Chg Fwd Exam Comprehensive Diagnoses Pancytopenia D61.818 JUS (acute kidney injury) N17.9 Port-A-Cath in place Z95.828 Cancer of right lung C34.91 COPD (chronic obstructive pulmonary disease) J44.9 Smoking addiction F17.200 Methadone use F11.20 Hypokalemia E87.6
[2020-11-10] MEDS: sodium chloride 0.9% 250 ML 10 ML IV (16:22)
--- NOTE | 2020-11-10 16:33 | PC.NURSE ---
Monitored patient for first 15 minutes of blood transfusion. Tolerating well with no indication if reaction. Rate increased to 120mL/hour. Will continue to monitor.
[2020-11-10 16:34] LABS: Magnesium 1.3 mg/dL (1.7-2.3)
[2020-11-10] MEDS: atorvastatin 40 mg Tablet 20 MG PO (21:49)
[2020-11-10] MEDS: methadone 10 mg Tablet PO (21:49)
[2020-11-10] MEDS: docusate sodium 100 mg Capsule PO (21:49)
[2020-11-10] MEDS: potassium chloride ER 20 mEq Tablet PO (21:50)
[2020-11-10] MEDS: pantoprazole DR 40 mg Tablet PO (21:50)
[2020-11-10] MEDS: magnesium sulfate premix 2 GM/50 ML PIGGYBACK IV (22:29)
[2020-11-11] VITALS (12 sets, daily range): BP systolic 90–111; BP diastolic 56–72; PULSE 60–93; RESP 14–18; TEMP 36.2–37.1; O2SAT 94–100
[2020-11-11] MEDS: methadone 10 mg Tablet PO ×2 (06:06→17:15)
[2020-11-11] MEDS: pantoprazole DR 40 mg Tablet PO ×2 (06:06→17:16)
--- NOTE | 2020-11-11 06:15 | PC.NURSE ---
Pt received unit of blood and two units of platelets and tolerated well. BPs soft intermittently and well as sinus bradycardia is noted.
[2020-11-11 06:24] LABS: Eosinophils % 1.1 %; Hemoglobin 7.4 g/dL (11.7-16.6); Lymphocytes # 0.8 10^3/uL (0.8-4.8); Lymphocytes % 88.3 %; Mean Corpuscular HGB Conc 35.6 g/dL (30.0-36.0); Mean Platelet Volume 9.7 fL (7.4-10.4); Monocytes # 0.1 10^3/uL (0.2-0.9); Monocytes % 7.4 %; Neutrophils % 3.2 %; Nucleated Red Blood Cells % 0 %; Platelet Count 62 10^3/cmm (130-400); Red Blood Count 2.39 10^6/uL (4.1-5.3); Red Cell Distribution Width 16.9 % (12.1-15.1)
[2020-11-11 06:40] LABS: Alanine Aminotransferase 9 U/L (0-41); Albumin Level 3.5 g/dL (3.5-5.2); Alkaline Phosphatase 74 IU/L (40-130); Aspartate Amino Transferase 13 U/L (0-40); Blood Urea Nitrogen 43 mg/dL (6-20); Calcium 8.7 mg/dL (8.5-10.5); Carbon Dioxide 28 mmol/L (22-29); Chloride 98 mmol/L (98-107); Globulin 2.4 g/dL (1.3-4.6); Glomerular Filtration Rate 44.8 mL/min (90-130); Glucose 73 mg/dL (65-115); Osmolality Calculated 295 mOsm/kg (285-295); Sodium 138 mmol/L (136-145); Total Bilirubin 0.7 mg/dL (0.15-1.2); Total Protein 5.9 g/dL (6.6-8.7)
[2020-11-11] MEDS: docusate sodium 100 mg Capsule PO ×2 (08:27→17:15)
[2020-11-11] MEDS: cetirizine 10 mg Tablet PO (08:27)
[2020-11-11] MEDS: folic acid 1 mg Tablet PO (08:27)
[2020-11-11] MEDS: nystatin 100,000 unit/mL UDC 5 mL 100000 UNIT PO ×4 (08:27→22:15)
[2020-11-11 08:37] LABS: White Blood Count 0.9 10^3/uL (4.0-10.0)
[2020-11-11 08:38] LABS: Hematocrit 20.8 % (42.0-52.0); Neutrophils # 0.03 10^3/uL (1.8-7.7); Slide Review Slide Review Perform
[2020-11-11] MEDS: potassium chloride ER 20 mEq Tablet 40 MEQ PO (10:23)
[2020-11-11 12:18] LABS: SARS Covid-2 Antigen Negative (Negative)
[2020-11-11] MEDS: sodium chloride 0.9% 250 ML 10 ML IV (14:12)
--- NOTE | 2020-11-11 22:03 | PM.PN ---
Subjective Subjective: Interval history: States he actually feels a little bit better today. Denies headache, nausea vomiting, diarrhea. No pain on swallowing. Asking when he can go home. Discussed with him he appears to responded well to platelet transfusion. Partial response to RBC transfusion. ANC is worse today at 30/mcL. He agrees to continue treatment and monitoring. Vitals/I&O/Wt Last Vital Signs Temp 98.2 F 11/11/20 20:55 Pulse 86 11/11/20 20:55 Resp 16 11/11/20 20:55 BP 99/71 11/11/20 20:55 Pulse Ox 100 11/11/20 20:55 11/11/20 11/11/20 11/11/20 06:59 14:59 22:59 Intake Total 488 / 788 218.333 / 218.333 Output Total 350 / 350 Balance 138 / 438 218.333 / 218.333 Weight last 48 hrs Weight 64.229 kg Weight 81.647 kg Physical Exam Const: COMMON NORMALS: no acute distress and patient oriented x3 GENERAL APPEARANCE: frail appearing OTHER: A little bit more energetic and interactive today. HENMT: COMMON NORMALS: oropharynx normal (No petechia, no intraoral hemorrhages.) Neck/C-Spine: COMMON NORMALS: no JVD Chest: OTHER: No erythema, swelling, drainage, bleeding around Port-A-Cath. Resp: COMMON NORMALS: normal respiratory effort and clear to auscultation bilaterally AUSCULTATION: clear to auscultation bilaterally Cardio: COMMON NORMALS: no JVD, regular rhythm, S1 normal heart sound present, S2 normal heart sound present and No murmurs present (Cardio) RHYTHM: regular rhythm HEART SOUNDS: S1 normal heart sound present and S2 normal heart sound present GI: COMMON NORMALS: Normal to inspection, nondistended, normoactive bowel sounds present, Soft to palpation and non-tender PALPATION: Yes Soft to palpation Extremity: COMMON NORMALS: no joint enlargement and no pedal edema Neuro: COMMON NORMALS: patient oriented x3 and moves all extremities Skin: COMMON NORMALS: no rashes or lesions noted GENERAL SKIN EXAM: no rashes or lesions noted Data : 11/11/20 05:09 11/11/20 05:09 Micro: Microbiology 11/10/20 14:40 Blood Culture - Preliminary Blood NEGATIVE TO DATE 09/01/21 14:40 Blood Culture - Preliminary Blood NEGATIVE TO DATE A&P Assessment and plan (1) Pancytopenia: Responded well to platelet transfusion. Partial response to PRBC transfusion. Worse ANC. Continue neutropenic precautions. Since platelets are better, started on subcu Neupogen. Testing COVID-19. Rapid is negative. With some malaise at presentation, cough may not be spiking fever, continue empiric antibiotic as per oncology recommendation. Suspected possibly after chemotherapy. Although has been having some chills, reported dysuria to his oncologist. Requested urinalysis. Chest x-ray appreciated. Blood cultures have been collected in ER. Status: Acute (2) JUS (acute kidney injury): Improving. Hold losartan. Blood pressure soft. Hold antihypertensives. Monitor blood pressure. Status: Acute (3) Port-A-Cath in place: Blood cultures obtained in ER. Follow-up. Monitor for any changes in or around Port-A-Cath. Status: Acute (4) Cancer of right lung: Status: Acute (5) COPD (chronic obstructive pulmonary disease): Not currently in exacerbation. Monitor. Status: Acute (6) Smoking addiction: Encourage cessation. Status: Acute (7) Methadone use: Dose confirmed with pharmacy. Status: Acute (8) Hypokalemia: Mild. Check magnesium. Replace cautiously given JUS. Status: Acute Additional A&P Information Hypomagnesemia: Replaced. Recheck. Minimal white exudate on the tongue. Continue nystatin swish and swallow. Attestations Medical Necessity Statement*: Continue admission for assessment management of severe neutropenia, empiric antibiotic coverage as per oncology recommendation with concern he may not be mounting fever due to severity of neutropenia, monitoring metabolic parameters with improving JUS, hyponatremia, hypomagnesemia. 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
[2020-11-11] MEDS: atorvastatin 40 mg Tablet 20 MG PO (22:15)
[2020-11-11] MEDS: potassium chloride oral liq 20 mEq/15 mL UDC 40 MEQ PO (22:37)
[2020-11-11] MEDS: cefepime 2,000 MG in sodium chloride 0.9% (plus) 50 ML 100 MG IV (22:40)
[2020-11-12] VITALS (8 sets, daily range): BP systolic 96–134; BP diastolic 66–80; PULSE 62–96; RESP 16–18; TEMP 36.7–37.1; O2SAT 98–100
[2020-11-12] MEDS: pantoprazole DR 40 mg Tablet PO ×2 (05:13→18:03)
[2020-11-12] MEDS: cefepime 2,000 MG in sodium chloride 0.9% (plus) 50 ML 100 MG IV ×3 (05:13→22:04)
[2020-11-12] MEDS: methadone 10 mg Tablet PO ×2 (05:13→18:03)
[2020-11-12 06:04] LABS: Eosinophils % 4.1 %; Hematocrit 23.7 % (42.0-52.0); Lymphocytes # 0.5 10^3/uL (0.8-4.8); Lymphocytes % 62.2 %; Mean Corpuscular HGB Conc 33.8 g/dL (30.0-36.0); Mean Corpuscular Hemoglobin 30.4 pg (28.0-34.0); Mean Corpuscular Volume 90.1 fl (80-94); Mean Platelet Volume 10.4 fL (7.4-10.4); Monocytes # 0.2 10^3/uL (0.2-0.9); Monocytes % 32.4 %; Neutrophils % 1.3 %; Nucleated Red Blood Cells % 0 %; Platelet Count 53 10^3/cmm (130-400); Red Blood Count 2.63 10^6/uL (4.1-5.3); Red Cell Distribution Width 17.3 % (12.1-15.1)
[2020-11-12 06:30] LABS: Slide Review Slide Review Perform
[2020-11-12 06:31] LABS: Neutrophils # 0.01 10^3/uL (1.8-7.7); White Blood Count 0.7 10^3/uL (4.0-10.0)
[2020-11-12 06:32] LABS: Alanine Aminotransferase 8 U/L (0-41); Albumin Level 3.7 g/dL (3.5-5.2); Alkaline Phosphatase 85 IU/L (40-130); Anion Gap 15.4 (5-19); Aspartate Amino Transferase 12 U/L (0-40); Blood Urea Nitrogen 31 mg/dL (6-20); Carbon Dioxide 26 mmol/L (22-29); Chloride 102 mmol/L (98-107); Globulin 2.5 g/dL (1.3-4.6); Glomerular Filtration Rate 62.4 mL/min (90-130); Glucose 87 mg/dL (65-115); Magnesium 1.4 mg/dL (1.7-2.3); Osmolality Calculated 296 mOsm/kg (285-295); Potassium 3.4 mmol/L (3.5-5.1); Sodium 140 mmol/L (136-145); Total Bilirubin 0.4 mg/dL (0.15-1.2); Total Protein 6.2 g/dL (6.6-8.7)
[2020-11-12] MEDS: docusate sodium 100 mg Capsule PO ×2 (08:00→18:03)
[2020-11-12] MEDS: cetirizine 10 mg Tablet PO (08:00)
[2020-11-12] MEDS: folic acid 1 mg Tablet PO (08:00)
[2020-11-12] MEDS: nystatin 100,000 unit/mL UDC 5 mL 100000 UNIT PO (08:00)
[2020-11-12] MEDS: ondansetron 4 MG Tablet PO (11:43)
--- NOTE | 2020-11-12 12:02 | CT_ITS ---
WS: [id number] CT ABDOMEN AND PELVIS NONCONTRAST HISTORY: nausea, abdominal pain, JUS, neutropenia TECHNIQUE: Imaging performed through the abdomen and pelvis. Coronal and sagittal reformats are submi tted. All CT scans at [facility] use at least one of these dose optimization techniques: auto mated exposure control; mA and/or kV adjustment per patient size (includes targeted exams where dose is matched to clinical indication); or iterative reconstruction. DLP: 664.06 mGy.cm COMPARISON: None available. Lower thorax: Marked emphysema. Normal size heart with a small amount of pericardial fluid or pericar dial thickening. Small hiatal hernia. Liver: Normal size liver. No mass or bile duct dilatation. Gallbladder: Normal gallbladder. Pancreas: Normal size and attenuation. Normal pancreatic duct. No pancreatitis or mass. Spleen: Normal size spleen with granulomata. Adrenal glands: Normal RIGHT adrenal gland. Mild thickening. Nodule in the LEFT adrenal gland measure s [address] demonstrated resolution of abnormal uptake in the LEFT adrenal gland on 10/30/2020. Right kidney: No obstruction. 3 mm calcification in the central pelvis. Left kidney: Normal size kidney with no mass or hydronephrosis. Aorta: Mild atherosclerosis and dilatation of aorta. Largest diameter is 2.8 cm just above the bifurc ation. No free fluid, intraperitoneal air or significant lymphadenopathy. GI tract: Stomach is moderately distended with food products. The wall cannot be evaluated without IV contrast. No GI tract obstruction. The appendix is normal. No obstruction. Abdominal wall: Negative. No hernia. Pelvis: Normal. Osseous structures: No destructive bone lesions. Endplate osteophytes throughout the lumbar spine. Bi lateral femoral head osteonecrosis. CT/CT kidney stone 82815 IMPRESSION: 1. No renal obstruction or significant inflammation. 2. Nonobstructing 3 mm calcification RIGHT kidney. 3. Ectasia and atherosclerosis aorta with no aneurysm. 4. No free fluid or free air. 5. Normal appendix. 6. Bilateral femoral head osteonecrosis.
--- NOTE | 2020-11-12 12:03 | PM.PN ---
Subjective Subjective: Interval history: He is having chills. Today he is very nauseated. Does not feel like he would like to eat anything. Vitals/I&O/Wt Last Vital Signs Temp 98.7 F 11/12/20 11:58 Pulse 62 11/12/20 11:58 Resp 17 11/12/20 11:58 BP 110/70 11/12/20 11:58 Pulse Ox 98 11/12/20 11:58 11/11/20 11/12/20 11/12/20 22:59 06:59 14:59 Intake Total 460 / 678.333 Balance 460 / 678.333 Weight last 48 hrs Weight 64.229 kg Weight 81.647 kg Physical Exam Const: COMMON NORMALS: no acute distress and patient oriented x3 GENERAL APPEARANCE: frail appearing; not comfortable HENMT: COMMON NORMALS: oropharynx normal (No petechia, no intraoral hemorrhages.) Neck/C-Spine: COMMON NORMALS: no JVD Chest: OTHER: No erythema, swelling, drainage, bleeding around Port-A-Cath. Resp: COMMON NORMALS: normal respiratory effort and clear to auscultation bilaterally AUSCULTATION: clear to auscultation bilaterally Cardio: COMMON NORMALS: no JVD, regular rhythm, S1 normal heart sound present, S2 normal heart sound present and No murmurs present (Cardio) RHYTHM: regular rhythm HEART SOUNDS: S1 normal heart sound present and S2 normal heart sound present GI: COMMON NORMALS: Normal to inspection, nondistended, normoactive bowel sounds present, Soft to palpation and non-tender PALPATION: Yes Soft to palpation Extremity: COMMON NORMALS: no joint enlargement and no pedal edema Neuro: COMMON NORMALS: patient oriented x3 and moves all extremities Skin: COMMON NORMALS: no rashes or lesions noted GENERAL SKIN EXAM: no rashes or lesions noted Data : 11/12/20 05:00 11/12/20 05:00 Micro: Microbiology 11/10/20 14:40 Blood Culture - Preliminary Blood NEGATIVE TO DATE 11/10/20 14:40 Blood Culture - Preliminary Blood NEGATIVE TO DATE A&P Assessment and plan (1) Pancytopenia: Chills, nausea, abdominal discomfort. As he had also had JUS, and I still do not see a urine sample will assess CT abdomen pelvis, renal protocol. Discussed with him. For now change to clear liquid diet. Continue cefepime. Continue Neupogen. Blood culture so far without growth. So far not obtained. Was going to ask for bladder scan, but likely he will be done with his CT before it can be obtained. Status: Acute (2) JUS (acute kidney injury): Improving. Hold losartan. Blood pressure soft. Hold antihypertensives. Monitor blood pressure. Status: Acute (3) Port-A-Cath in place: Blood cultures obtained in ER. Follow-up. Monitor for any changes in or around Port-A-Cath. Status: Acute (4) Cancer of right lung: Status: Acute (5) COPD (chronic obstructive pulmonary disease): Not currently in exacerbation. Monitor. Status: Acute (6) Smoking addiction: Encourage cessation. Status: Acute (7) Methadone use: Dose confirmed with pharmacy. Status: Acute (8) Hypokalemia: Replace Status: Acute Additional A&P Information Hypomagnesemia: Replace magnesium Minimal white exudate on the tongue. Continue nystatin swish and swallow. Attestations Medical Necessity Statement*: Continue admission for assessment management of neutropenia, chills, abdominal discomfort, nausea in the setting of pancytopenia. Improving acute kidney injury, monitoring and replacement of electrolytes. Coding Level of Care Code Acute Warehouse Clerk for [facility] Fwd Diagnoses Pancytopenia D61.818 JUS (acute kidney injury) N17.9 Port-A-Cath in place Z95.828 Cancer of right lung C34.91 COPD (chronic obstructive pulmonary disease) J44.9 Smoking addiction F17.200 Methadone use F11.20 Hypokalemia E87.6
[2020-11-12] MEDS: magnesium sulfate premix 2 GM/50 ML PIGGYBACK IV (13:20)
--- NOTE | 2020-11-12 14:54 | PC.CHAP ---
Pastoral Care Encounter/Spiritual Assessment Type of Contact [] Declined agent visit [] Patient/Family/Request visit [] Outpatient visit [XX] Follow-up visit [] Physician referral [] Code/Alert [] Routine visit [] Staff referral [] Actively dying [XX] Patient sleeping [] Family support [] [] Out of room [] Palliative care [] [] Receiving care in room [] Pre-surgical visit [] Trauma [] Long length of stay [] ICU visit [] Other: Relational/Emotional Strength [] Patient feels connected with others/family/visitors/staff [] Distress [] Loneliness/isolation [] Abandonment Spirituality of Patient [] Person of Shanna [] Attends Synagogue of their Shanna [] Believes in Prayer [] Reads Bible or Amish materials [] There are Spiritual issues to be addressed Courtroom Reporter Interventions [] Prayer [] Active listening [] Non-anxious presence [] Spiritual/emotional support [] Crisis/trauma care [] Spiritual counseling [] Bereavement support [] Provided bereavement packet [] Provided Bible/devotional materials [] Provided toy/stuffed animal, coloring book to patient or family member [] Provided Communion [] Anointing/Lewis [] Salvation [] Completed spiritual assessment [] Other: Impact on Illness or Injury [] Angry [] Fearful [] Anxious [] Often cries [] Exhaustion [] Unable to work [] Unable to attend restorationist [] Unable to walk/stand [] Unable to read [] Unable to drive [] Unable to eat/drink [] Unable to sleep [] Unable to be with family [] Patient intubated [] Other: Summary Time spent with patient
[2020-11-12] MEDS: lidocaine 1% 5 ML in potassium chloride premix 100 ML 50 ML IV (15:00)
[2020-11-12] MEDS: HYDROcodone-acetaminophen 5-325 mg Tablet 1 TAB PO (15:16)
[2020-11-12] MEDS: nicotine 4 mg lozenge MUCOUS MEM (15:17)
[2020-11-12] MEDS: sodium chloride 0.9% 250 ML 10 ML IV (16:57)
[2020-11-12] MEDS: atorvastatin 40 mg Tablet 20 MG PO (20:30)
[2020-11-12] MEDS: LORazepam 1 mg Tablet PO (22:02)
[2020-11-13 04:00] VITALS: BP 103/70; PULSE 92; RESP 18; TEMP 37; O2SAT 98
[2020-11-13] MEDS: cefepime 2,000 MG in sodium chloride 0.9% (plus) 50 ML 100 MG IV (05:22)
[2020-11-13] MEDS: pantoprazole DR 40 mg Tablet PO (05:22)
[2020-11-13 05:23] VITALS: RESP 20
[2020-11-13] MEDS: methadone 10 mg Tablet PO (05:23)
[2020-11-13 06:39] LABS: Eosinophils % 1.3 %; Hematocrit 24.1 % (42.0-52.0); Hemoglobin 8.3 g/dL (11.7-16.6); Lymphocytes # 0.8 10^3/uL (0.8-4.8); Lymphocytes % 26.4 %; Mean Corpuscular HGB Conc 34.4 g/dL (30.0-36.0); Mean Corpuscular Hemoglobin 30.9 pg (28.0-34.0); Mean Corpuscular Volume 89.6 fl (80-94); Mean Platelet Volume 10.7 fL (7.4-10.4); Monocytes # 0.4 10^3/uL (0.2-0.9); Monocytes % 13.9 %; Neutrophils # 1.69 10^3/uL (1.8-7.7); Neutrophils % 55.7 %; Nucleated Red Blood Cells % 0 %; Platelet Count 53 10^3/cmm (130-400); Red Blood Count 2.69 10^6/uL (4.1-5.3); Red Cell Distribution Width 17.7 % (12.1-15.1)
[2020-11-13 06:57] LABS: Alanine Aminotransferase 7 U/L (0-41); Albumin Level 3.9 g/dL (3.5-5.2); Alkaline Phosphatase 93 IU/L (40-130); Anion Gap 18.3 (5-19); Aspartate Amino Transferase 13 U/L (0-40); Blood Urea Nitrogen 22 mg/dL (6-20); Calcium 9.2 mg/dL (8.5-10.5); Carbon Dioxide 24 mmol/L (22-29); Chloride 101 mmol/L (98-107); Globulin 2.7 g/dL (1.3-4.6); Glucose 85 mg/dL (65-115); Osmolality Calculated 293 mOsm/kg (285-295); Potassium 3.3 mmol/L (3.5-5.1); Sodium 140 mmol/L (136-145); Total Bilirubin 0.5 mg/dL (0.15-1.2); Total Protein 6.6 g/dL (6.6-8.7)
[2020-11-13 08:40] VITALS: BP 103/71; PULSE 94; RESP 18; TEMP 37.1; O2SAT 90
[2020-11-13] MEDS: docusate sodium 100 mg Capsule PO (10:03)
[2020-11-13] MEDS: cetirizine 10 mg Tablet PO (10:03)
[2020-11-13] MEDS: folic acid 1 mg Tablet PO (10:04)
[2020-11-13] MEDS: nystatin 100,000 unit/mL UDC 5 mL 100000 UNIT PO (10:05)
[2020-11-13] MEDS: nicotine 21 mg Patch 1 PATCH TRANSDERMA (10:05)
[2020-11-13 10:24] VITALS: PULSE 108; RESP 22; O2SAT 94
[2020-11-13] MEDS: LORazepam 1 mg Tablet PO (10:24)
[2020-11-13 10:44] LABS: Slide Review Slide Review Perform
--- NOTE | 2020-11-13 11:53 | P.DS_ITS ---
Discharge Providers Date of Admission: 11/10/20 14:15 Date of Discharge: November 13, 2020 Attending Provider at Admission: Bolivar Bob Attending Provider at Discharge: Bolivar Bob Primary Care Provider: Jv Robins MD Diagnoses at Discharge Discharge Diagnosis (1) Pancytopenia: Status: Acute (2) JUS (acute kidney injury): Status: Acute (3) Port-A-Cath in place: Status: Acute (4) Cancer of right lung: Status: Acute (5) COPD (chronic obstructive pulmonary disease): Status: Acute (6) Smoking addiction: Status: Acute (7) Methadone use: Status: Acute (8) Hypokalemia: Status: Acute Reason for Visit Reason for Visit: GEN, SENT BY [facility] Hospital Course Pleasant 55-year-old gentleman with NSCLC currently undergoing chemotherapy, was admitted due to severe pancytopenia, with ANC of 90, platelets of 10,000 slightly better than the day before during his oncology follow-up lab work. With some chills, he was started on empiric antibiotic treatment due to concern that he may not be able to spike fever as per his oncologist recommendation. He received platelet transfusion. PRBC transfusion. Responded well to platelet transfusion. Subsequently assessed by rapid COVID-19 antigen test which was negative. Started on subcu Neupogen injections. Blood cultures so far remain negative on preliminary study. Head CT with minimal cerebral atrophy, no acute findings. CT abdomen pelvis obtained due to nausea, poor appetite during hospital stay, with noted nonobstructing 3 mm calcification of the right kidney. Urinalysis was requested, but appears a sample still not collected. His counts however have improved quite well, with ANC today up to 1690. He reports he is feeling much better. He is eager to return home. Reports his appetite is back and he feels like having a big Mac. Is getting up to ambulate in the room to get ready to go home. Other incidental findings on CT include ectasia and atherosclerosis of aorta with no aneurysm. Bilateral femoral head osteonecrosis. Please follow-up on the incidental findings. Consider additional management/treatment of osteonecrosis. We are also referring him for outpatient PT evaluation. On presentation also with noted acute kidney injury. This has resolved. For now his losartan, metoprolol and Imdur are stopped due to soft blood pressures and kidney injury. Please follow-up blood pressures and renal function. Noted mild hypokalemia. He is instructed to increase potassium intake in food. Please follow-up potassium level. Please continue to encourage smoking cessation. Physical Exam Const: COMMON NORMALS: no acute distress, patient oriented x3 and alert GENERAL APPEARANCE: cooperative and comfortable ORIENTATION/CONSCIOUSNESS: Yes awake OTHER: Sitting up at bedside. Reports he is feeling much better. Excited about returning home. HENMT: COMMON NORMALS: oropharynx normal Neck/C-Spine: COMMON NORMALS: no JVD Resp: COMMON NORMALS: normal respiratory effort and clear to auscultation bilaterally AUSCULTATION: clear to auscultation bilaterally Cardio: COMMON NORMALS: no JVD, regular rhythm, S1 normal heart sound present, S2 normal heart sound present and No murmurs present (Cardio) RHYTHM: regular rhythm HEART SOUNDS: S1 normal heart sound present and S2 normal heart sound present GI: COMMON NORMALS: Normal to inspection, nondistended, normoactive bowel sounds present, Soft to palpation and non-tender PALPATION: Yes Soft to palpation Extremity: COMMON NORMALS: no joint enlargement and no pedal edema Neuro: COMMON NORMALS: patient oriented x3 and moves all extremities SENS ORIUM/ORIENTATION: Yes alert Skin: COMMON NORMALS: no rashes or lesions noted GENERAL SKIN EXAM: no rashes or lesions noted Discharge Data Data Completed and Pending: Completed Studies During Hospitalization Category Date Time Status CT head wo con* 7 0450 Urgent Cat Scan 11/10/20 14:[address] kidney stone 7 8956 Routine Cat Scan 11/12/20 12:02 Completed Pending at discharge Category Date Time Status Blood Culture Sta t Lab 11/10/20 14:40 Results Complete Blood Co unt w/Auto AM LABS Lab 11/14/20 04:00 Ordered Comprehensive Met abolic Panel AM LA BS Lab 11/14/20 04:00 Ordered Coronavirus Test [facility] ne Lab 11/11/20 09:14 Ordered Urinalysis Stat Lab 11/10/20 14:03 Ordered Labs from last 24 hours 11/13/20 11/13/20 05:21 05:21 WBC 3.0 L RBC 2.69 L Hgb 8.3 L Hct 24.1 L MCV 89.6 MCH 30.9 MCHC 34.4 RDW 17.7 H Plt Count 53 L MPV 10.7 H Neut % (Auto) 55.7 Lymph % (Auto) 26.4 Republic % (Auto) 13.9 Eos % (Auto) 1.3 Baso % (Auto) 1.0 Neut # (Auto) 1.69 L Lymph # (Auto) 0.8 Republic # (Auto) 0.4 Eos # (Auto) 0.0 Baso # (Auto) 0.0 Nucleated RBC % (a uto) 0 Nucleated RBCs # 0.0 Sodium 140 Potassium 3.3 L Chloride 101 Carbon Dioxide 24 Anion Gap 18.3 BUN 22 H Creatinine 1.0 GFR Calculation 77.0 L Glucose 85 Calculated Osmolal ity 293 Calcium 9.2 Total Bilirubin 0.5 AST 13 ALT 7 Alkaline Phosphata se 93 Total Protein 6.6 Albumin 3.9 Globulin 2.7 Vitals: Last Vital Signs Temp 98.7 F 11/13/20 08:40 Pulse 108 H 11/13/20 10:24 Resp 22 H 11/13/20 10:24 BP 103/71 11/13/20 08:40 Pulse Ox 94 11/13/20 10:24 Discharge Plan Discharge Patient Disposition: Home Condition: Stable Prescriptions: New levofloxacin 750 mg tablet 750 mg PO DAILY 7 Days Qty: 7 RF: 0 Continued albuterol sulfate 90 mcg/actuation HFA aerosol inhaler 2 puff inhalation Q6H MDD SEE PHARMACY COMMENT PRN (Reason: Shortness Of Breath) RF: 0 dexamethasone 4 mg tablet 4 mg PO BID RF: 0 cetirizine 10 mg Tablet 10 mg PO DAILY RF: 0 methadone 10 mg Tablet 10 mg PO BID@ RF: 0 simvastatin 40 mg Tablet 40 mg PO BEDTIME@1999 RF: 0 ibuprofen 200 mg Tablet 600 mg PO BID PRN (Reason: Pain) RF: 0 omeprazole 20 mg Tablet,Delayed Release (Dr/Ec) 20 mg PO BID@ RF: 0 hydrocodone-acetaminophen 5-325 mg tablet 1 tab PO Q6H PRN (Reason: pain) Qty: 20 RF: 0 ondansetron HCl [Zofran] 4 mg tablet 4 mg PO Q6H PRN (Reason: nausea and vomiting) Qty: 20 RF: 0 docusate sodium [Colace] 100 mg capsule 100 mg PO BID Qty: 30 RF: 0 lorazepam 1 mg tablet 1 mg PO BID RF: 0 nystatin 100,000 unit/mL Suspension See Rx Instructions .ROUTE .COMPLEX RF: 0 Compazine 10 mg Tablet 10 mg PO Q6H PRN (Reason: Nausea) RF: 0 folic acid 1 mg Tablet 1 mg PO DAILY RF: 0 Held aspirin 81 mg Tablet,Chewable 81 mg PO DAILY@06 RF: 0 Hold Instructions: Resume on 11/20/20. Discontinued losartan 50 mg Tablet 50 mg PO DAILY@1999 RF: 0 metoprolol tartrate 100 mg Tablet 100 mg PO BID@, RF: 0 isosorbide mononitrate 30 mg Tablet Extended Release 24 Hr 30 mg PO DAILY@ RF: 0 Discharge Orders: Discharge Order (Routine); Ordered 11/13/20 Ordered By: Bolivar Bob Other Ambulatory Orders: Physical Therapy Eval and Treat Outpatient (Order) Timeframe: 3 Days Facility: [facility] - Location: Physical Therapy Ordered By: Bolivar Bob Referrals: Vida Downing, FAWAD [Referring] - (It is recommended you follow up within 4-7 once discharged from hospital. Please follow up with Vida SUAREZ at [facility] on 11/18/2020 at 2:00pm. Dr Robins is not available until Dec 09 but you do have an appointment with him on this date as well. December 09, 2020 at 3:40pm. PLease be sure to attend appointments. If you are unable to do so, please call in advance to cancel appointment. ) Refugio Lunsford MD [Staff Physician] - 1 week (Please call on Sunday to schedule an appointment to be seen in one week.) Discharge Diet: Advance as tolerated Discharge Activity: Increase activity as tolerated and Limit activity as instructed Patient Instructions: Levofloxacin (By mouth), How to Stop Smoking (DC), Acute Kidney Injury (DC), Potassium Content of Foods List (GEN), Cigarette Smoking and Your Health (GEN), Opioid Safety Activity Restrictions/Additional Instructions: Please follow-up with your primary provider, blood counts for continued improvement. Since your platelets are still on the lower side, 53,000, your bleeding risk is still elevated. Please hold aspirin for now. Follow-up with your primary doctor and/or oncology DrLexis To discuss when it may be safe to restart aspirin. Please avoid any injury at any cost. If you notice bleeding, please seek medical attention. Your blood pressure also is soft. For now please do not continue losartan, metoprolol or Imdur and discuss with your primary doctor when it is safe to resume them. If you start having fever, headache, but shortness of breath, nausea, vomiting, diarrhea, or other concerning symptoms, please seek medical attention immediately. Please have your primary doctor follow-up your kidney function and to reassess for resolution of kidney injury. Please have your primary doctor recheck your potassium level. Please include foods rich in potassium as per the list provided. Please stop smoking. Discharge Attestations Time Spent in Discharge Care*: greater than 30 min Quality Metrics Clinical Quality Measures During this hospital stay, did patient experience: None Coding Level of Care Code Acute Chg FW DC note Diagnoses Pancytopenia D61.818 JUS (acute kidney injury) N17.9 Port-A-Cath in place Z95.828 Cancer of right lung C34.91 COPD (chronic obstructive pulmonary disease) J44.9 Smoking addiction F17.200 Methadone use F11.20 Hypokalemia E87.6
[2020-11-13 13:27] VITALS: BP 93/64; PULSE 98; RESP 15; TEMP 36.8; O2SAT 92
--- NOTE | 2020-11-13 13:59 | PC.NURSE ---
Home Meds Patient left before nurse could return his home meds to him. Phoned Hayley, patient's significant other, to notify. She states she will notify him to call floor when he is able to, to arrange to roller picker his home medications.
--- NOTE | 2020-11-16 11:37 | PC.SOCIAL ---
discharge follow up appointment made. Spoke with patients Priscilla, with permission of patient. Patient is aware of all discontinued medications, had new prescription filled and is taking as directed. Follow up appointment made with primary doctor and friend will make follow up appointment with Dr. Lunsford.
== END 2020-11-13 14:00 | disposition home or self-care (01) | DRG 809 ==
LOC: ER 14:05 → MEDSURG 17:07
PROVIDERS: Absent Provider Internal Medicine Hematology & Oncology; Admitting Provider Internal Medicine; Emergency Provider Emergency Medicine; PCP Family Medicine; Visit Provider Internal Medicine
DX: D61.818 Other pancytopenia (principal); N17.9 Acute kidney failure, unspecified; C34.91 Malignant neoplasm of unspecified part of right bronchus or lung; J44.9 Chronic obstructive pulmonary disease, unspecified; K21.9 Gastro-esophageal reflux disease without esophagitis; I10 Essential (primary) hypertension; E78.5 Hyperlipidemia, unspecified; F17.210 Nicotine dependence, cigarettes, uncomplicated; E87.6 Hypokalemia; F11.90 Opioid use, unspecified, uncomplicated; Z82.49 Family history of ischemic heart disease and other diseases of the circulatory system; Z95.828 Presence of other vascular implants and grafts; Z20.822 Contact with and (suspected) exposure to COVID-19; Z79.82 Long term (current) use of aspirin
CPT/HCPCS: 36415; 36430; 70450; 74176; 80048; 80053; 83605; 83735; 85025; 86850; 86900; 86920; 87040; 87426; 93005; 96365; 99285; J0692; J1442; J1642; J3475; J3480; J7050; P9037; P9040; P9053; Q0162

== ENCOUNTER 2020-11-23 09:31 | Emergency (ER) | payer MEDICAID, SELFPAY ==
[2020-11-23 10:01] VITALS: BP 97/58; PULSE 78; RESP 20; TEMP 36.3; O2SAT 94; BMI 21.6
--- NOTE | 2020-11-23 10:27 | XR_ITS ---
WS: [id number] PORTABLE CHEST HISTORY: weakness COMPARISON: PET CT 10/30/2020, prior radiograph 07/05/2020 Continued dense opacification at the RIGHT apex. Significantly improved since 07/05/2020. There is now elevation of the minor fissure. 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 LEFT lung is clear. No pleural effusion or pneumothorax. Cardiac size: Normal. Mediastinum/Aorta: No mediastinal widening. LEFT subclavian Mediport tip in the distal SVC. No osseous abnormality seen. XR/XR chest 1V portable 10335 IMPRESSION: 1. RIGHT apical consolidation corresponds to a treated neoplasm which has been previously described. No recent radiographs for comparison. Compared to the PE T/CT appears similar or improved. 2. No pneumonia.
--- NOTE | 2020-11-23 10:31 | W.ED.NAVMDI ---
Documented by User: ELIZABETH Gonzalez 11/23/20 13:07 HPI - Nausea/Vomiting/Diarrhea General: Chief complaint: Nausea/Vomiting/Diarrhea Stated complaint: Pain all Over Time Seen by Provider: 11/23/20 10:02 Source: patient Mode of arrival: ambulatory Limitations: no limitations History of Present Illness: HPI Narrative: Patient is a nice 55-year-old male with a history of NSCLC with extensive metastasis currently undergoing chemotherapy here for complaints of nausea/vomiting as well as continued abdominal pain and headache. Patient was recently admitted to our facility secondary to severe pancytopenia. He required platelet transfusion and was also started on Neupogen injections. Patient states he has had abdominal pain and headache for several months now. He had CTs of these performed last week while in the hospital. He has known brain/adrenal/lung metastasis, right upper lobe lung mass with complete bronchial obstruction, and extensive malignant mediastinal lymphadenopathy. Patient states his main complaint is weakness and being unable to eat/hold anything down. States he has been lying in bed since he was discharged. MD elicited complaint: nausea and vomiting Pertinent past history: other (extensive metastatic cancer) Onset (ago): day(s) Associated nausea: Yes Associated abdominal pain: Yes Location of pain: Diffuse Pain consistency: constant Exacerbating factors: eating Relieving factors: none Associated symtoms: Reports fatigue, headache(s) and nausea; Denies change in vision, chest pain or dysuria Review of Systems Const: Reports: change in appetite and fatigue; Denies: fever(s), chills or body aches Eyes: Denies: change in vision ENMT: Denies: throat pain or odynophagia Card: Denies: chest pain Resp: Denies: dyspnea GI: Reports: abdominal pain, nausea and vomiting; Denies: hematemesis, diarrhea, change in stool character, hematochezia or melena : Denies: flank pain, dysuria or hematuria Musc: Denies: neck pain, back pain, extremity pain or joint pain Skin/Breast: Denies: rash Neuro: Reports: headache(s); Denies: numbness in extremities or sensory changes PFSH ED PFSH: Medical History Cancer of right lung COPD (chronic obstructive pulmonary disease) GERD (gastroesophageal reflux disease) History of TIA (transient ischemic attack) HTN (hypertension) Hyperlipidemia Lung cancer Methadone use Surgical History History of lung biopsy 2020 Port-A-Cath in place (08/04/20) S/P bronchoscopy Family History Father Heart attack Brother Heart attack Social History Smoking and tobacco status: current every day smoker cigarettes Packs smoked per day: 0.25 Years cigarettes smoked: 40 Quit status (tobacco): considering quitting Second hand smoke exposure: Yes Smoking risk assessment/counseling performed?: Yes Alcohol intake: never Desire information about substance/drug rehabilitation?: No Lives independently: Yes Household members: friend(s) Marital status: Single service: No Current occupational status: employed Pets and animals: Yes History of recent travel: No Current gender identity: Male Physical Exam Const: COMMON NORMALS: no acute distress, patient oriented x3, no limitations and alert GENERAL APPEARANCE: frail appearing NUTRITIONAL APPEARANCE: thin ORIENTATION/CONSCIOUSNESS: Yes awake, Yes oriented to person, Yes oriented to place and Yes oriented to time HENMT: COMMON NORMALS: normocephalic and atraumatic HEAD & SCALP: normocephalic and atraumatic Resp: COMMON NORMALS: normal respiratory effort and clear to auscultation bilaterally AUSCULTATION: clear to auscultation bilaterally Cardio: COMMON NORMALS: regular rate and regular rhythm RATE: regular rate RHYTHM: regular rhythm GI: COMMON NORMALS: Soft to palpation and no masses INSPECTION: Yes normal to inspection PALPATION: Yes Soft to palpation and Yes Tenderness to palpation present (GI) (mild throughout; non-surgical abdomen) Neuro: JERRY COMA SCALE: document GCS findings Jerry coma scale eye opening: Spontaneous Jerry coma scale verbal response: Orientated Jerry coma scale motor response: Obey commands Jerry coma scale total score: 15 COMMON NORMALS: patient oriented x3, CN's II-XII intact bilaterally, moves all extremities, no focal motor deficits and no sensory deficits noted SENSORIUM/ORIENTATION: Yes alert, Yes oriented to person, Yes oriented to place and Yes oriented to time Skin: COMMON NORMALS: no rashes or lesions noted GENERAL SKIN EXAM: no rashes or lesions noted Course Vital Signs: Vital signs: Vital Signs Temperature 97.4 F L 11/23/20 10:01 Pulse Rate 90 11/23/20 13:44 Respiratory Rate 22 H 11/23/20 13:44 Blood Pressure 114/80 11/23/20 13:44 Pulse Oximetry 99 11/23/20 13:44 MDM - Nausea/Vomiting/Diarrhea MDM Narrative: Medical decision making narrative: Care transferred to Dr. Rust as he most likely will require admission. Lab Data: Labs: Lab Results 11/23/20 11/23/20 11/23/20 Range/Units 10:35 10:35 10:35 WBC 5.1 (4.0-10.0) 10^3/ uL RBC 2.58 L (4.1-5.3) 10^6/u L Hgb 8.0 L (11.7-16.6) g/dL Hct 22.2 L (42.0-52.0) % MCV 86.0 (80-94) fl MCH 31.0 (28.0-34.0) pg MCHC 36.0 (30.0-36.0) g/dL RDW 17.3 H (12.1-15.1) % Plt Count 120 L (130-400) 10^3/c mm MPV 12.3 H (7.4-10.4) fL Neut % (Auto) 71.9 % Lymph % (Auto) 19.9 % Kingman % (Auto) 7.6 % Eos % (Auto) 0.0 % Baso % (Auto) 0.2 % Neut # (Auto) 3.69 (1.8-7.7) 10^3/u L Lymph # (Auto) 1.0 (0.8-4.8) 10^3/u L Kingman # (Auto) 0.4 (0.2-0.9) 10^3/u L Eos # (Auto) 0.0 (0.0-0.8) 10^3/u L Baso # (Auto) 0.0 (0.0-0.1) 10^3/u L Nucleated RBC % (a uto) 0 % Nucleated RBCs # 0.0 /100WBC Sodium 137 (136-145) mmol/L Potassium 2.9 L (3.5-5.1) mmol/L Chloride 94 L (98-107) mmol/L Carbon Dioxide 26 (22-29) mmol/L Anion Gap 19.9 H (5-19) BUN 28 H (6-20) mg/dL Creatinine 1.1 (0.7-1.2) mg/dL GFR Calculation 69.0 L (90-130) mL/min Glucose 138 H (65-115) mg/dL Calculated Osmolal ity 292 (285-295) mOsm/k g Lactic Acid 1.8 (0.5-2.2) mmol/L Calcium 8.1 L (8.5-10.5) mg/dL Magnesium (1.7-2.3) mg/dL Total Bilirubin 0.6 (0.15-1.2) mg/dL AST 10 (0-40) U/L ALT < 5 (0-41) U/L Alkaline Phosphata se 87 (40-130) IU/L Total Protein 6.1 L (6.6-8.7) g/dL Albumin 3.9 (3.5-5.2) g/dL Globulin 2.2 (1.3-4.6) g/dL 11/23/20 Range/Units 10:35 WBC (4.0-10.0) 10^3/ uL RBC (4.1-5.3) 10^6/u L Hgb (11.7-16.6) g/dL Hct (42.0-52.0) % MCV (80-94) fl MCH (28.0-34.0) pg MCHC (30.0-36.0) g/dL RDW (12.1-15.1) % Plt Count (130-400) 10^3/c mm MPV (7.4-10.4) fL Neut % (Auto) % Lymph % (Auto) % Kingman % (Auto) % Eos % (Auto) % Baso % (Auto) % Neut # (Auto) (1.8-7.7) 10^3/u L Lymph # (Auto) (0.8-4.8) 10^3/u L Kingman # (Auto) (0.2-0.9) 10^3/u L Eos # (Auto) (0.0-0.8) 10^3/u L Baso # (Auto) (0.0-0.1) 10^3/u L Nucleated RBC % (a uto) % Nucleated RBCs # /100WBC Sodium (136-145) mmol/L Potassium (3.5-5.1) mmol/L Chloride (98-107) mmol/L Carbon Dioxide (22-29) mmol/L Anion Gap (5-19) BUN (6-20) mg/dL Creatinine (0.7-1.2) mg/dL GFR Calculation (90-130) mL/min Glucose (65-115) mg/dL Calculated Osmolal ity (285-295) mOsm/k g Lactic Acid (0.5-2.2) mmol/L Calcium (8.5-10.5) mg/dL Magnesium 1.0 L (1.7-2.3) mg/dL Total Bilirubin (0.15-1.2) mg/dL AST (0-40) U/L ALT (0-41) U/L Alkaline Phosphata se (40-130) IU/L Total Protein (6.6-8.7) g/dL Albumin (3.5-5.2) g/dL Globulin (1.3-4.6) g/dL Imaging Data^: CXR: Radiologist's impression: [address] [id number] ReportSigned Patient: Kevin Omalley Sr #: [id number]: [id number]#:[id number]/Sex: 55 / MADM Date: 11/23/20Loc: ERRoom/Bed:Attending Dr: Ordering Provider/Ordering MD: Desi Cabrera Date of Service: 11/23/20 Procedure(s): XR chest 1V portable [id number] Accession Number(s): [id number] Report Number: [id number] WS: [id number] PORTABLE CHEST HISTORY: weakness COMPARISON: PET CT 10/30/2020, prior radiograph 07/05/2020 Continued dense opacification at the RIGHT apex. Significantly improved since 07/05/2020. There is now elevation of the minor fissure. 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 LEFT lung is clear. No pleural effusion or pneumothorax. Cardiac size: Normal. Mediastinum/Aorta: No mediastinal widening. LEFT subclavian Mediport tip in the distal SVC. No osseous abnormality seen. XR/XR chest 1V portable [id number] IMPRESSION: 1. RIGHT apical consolidation corresponds to a treated neoplasm which has been previously described. No recent radiographs for comparison. Compared to the PET/CT appears similar or improved. 2. No pneumonia. Dictated By:Preeti Reis DOSigned By:Preeti Reis DOSigned Date/Time:11/23/20 1059DD/ 1056 Discharge Plan Discharge Patient Disposition: Home Clinical Impression: Adenocarcinoma of right lung, stage 4, Hypokalemia, Hypomagnesemia Condition: Stable Prescriptions: New potassium chloride 20 mEq tablet extended release 20 meq PO BID Qty: 30 RF: 0 magnesium oxide 400 mg magnesium tablet 400 mg PO BID Qty: 30 RF: 0 No Action albuterol sulfate 90 mcg/actuation HFA aerosol inhaler 2 puff inhalation Q6H MDD SEE PHARMACY COMMENT PRN (Reason: Shortness Of Breath) RF: 0 dexamethasone 4 mg tablet 4 mg PO BID RF: 0 cetirizine 10 mg Tablet 10 mg PO DAILY RF: 0 methadone 10 mg Tablet 10 mg PO BID@ RF: 0 simvastatin 40 mg Tablet 40 mg PO BEDTIME@1999 RF: 0 ibuprofen 200 mg Tablet 600 mg PO BID PRN (Reason: Pain) RF: 0 aspirin 81 mg Tablet,Chewable 81 mg PO DAILY@06 RF: 0 Hold Instructions: Resume on 11/20/20. omeprazole 20 mg Tablet,Delayed Release (Dr/Ec) 20 mg PO BID@ RF: 0 hydrocodone-acetaminophen 5-325 mg tablet 1 tab PO Q6H PRN (Reason: pain) Qty: 20 RF: 0 ondansetron HCl [Zofran] 4 mg tablet 4 mg PO Q6H PRN (Reason: nausea and vomiting) Qty: 20 RF: 0 docusate sodium [Colace] 100 mg capsule 100 mg PO BID Qty: 30 RF: 0 lorazepam 1 mg tablet 1 mg PO BID RF: 0 nystatin 100,000 unit/mL Suspension See Rx Instructions .ROUTE .COMPLEX RF: 0 Compazine 10 mg Tablet 10 mg PO Q6H PRN (Reason: Nausea) RF: 0 folic acid 1 mg Tablet 1 mg PO DAILY RF: 0 Discharge Orders: Discharge ED (Routine); Ordered 11/23/20 Ordered By: Reginald Rust Referrals: Jv Robins MD [Primary Care Provider] - Discharge Diet: Usual diet Discharge Activity: Increase activity as tolerated Patient Instructions: Opioid Safety Activity Restrictions/Additional Instructions: Hospice will come to your home for consult. Follow-up with Dr. Lunsford later this week in his office call for an appointment. Return if you have further problems. Coding Level of Care Code ED Brim Pouncer Machine Operator for Chg Fwd Exam Comprehensive Documented by User: Reginald Rust, 11/23/20 14:48 HPI - Nausea/Vomiting/Diarrhea General: Chief complaint: Nausea/Vomiting/Diarrhea Stated complaint: Pain all Over Time Seen by Provider: 11/23/20 10:02 History of Present Illness: HPI Narrative: 85-year-old male initially seen in [facility]. He has known non-small lung CA with multiple metastasis. Said several CTs previously here at our hospital is reviewed. He is currently getting palliative treatment per Dr. Lunsford's notes at [facility]. Today comes in plan nausea vomiting diarrhea generally not feeling well. He denies any headaches. He was initially seen by the midlevel and found to be hypomagnesemic and hypokalemic. He is not on hospice. He does not wish to be hospitalized at this point. MD elicited complaint: nausea, vomiting and diarrhea Pertinent past history: other (Stage IV non-small cell lung CA) Description of vomiting: watery and bilious Description of diarrhea: watery and semi-solid Associated nausea: Yes Associated abdominal pain: Yes Location of pain: Diffuse Severity: moderate Quality: cramping Exacerbating factors: none Relieving factors: none Associated symtoms: Reports dizziness, fatigue, anorexia, malaise, myalgias, nausea, short of breath and weakness; Denies altered mental status, anxiety, bloating, change in vision, chest pain, cough, diaphoresis, decreased urine output, dysuria, epistaxis, fecal incontinence, fevers/chills, headache(s), numbness, palpitations, rash, syncope, tenesmus or tinnitus Review of Systems Const: Reports: fatigue and malaise; Denies: diaphoresis Eyes: Denies: change in vision ENMT: Denies: tinnitus or epistaxis Card: Denies: chest pain, palpitations or syncope Resp: Denies: dyspnea, productive cough or non-productive cough GI: Reports: nausea; Denies: bloating or fecal incontinence : Denies: dysuria Skin/Breast: Denies: rash or pruritus Neuro: Reports: dizziness; Denies: headache(s) Psych: Denies: anxiety PFSH ED PFSH: Medical History Cancer of right lung COPD (chronic obstructive pulmonary disease) GERD (gastroesophageal reflux disease) History of TIA (transient ischemic attack) HTN (hypertension) Hyperlipidemia Lung cancer Methadone use Surgical History History of lung biopsy 2020 Port-A-Cath in place (08/04/20) S/P bronchoscopy Family History Father Heart attack Brother Heart attack Social History Smoking and tobacco status: current every day smoker cigarettes Packs smoked per day: 0.25 Years cigarettes smoked: 40 Quit status (tobacco): considering quitting Second hand smoke exposure: Yes Smoking risk assessment/counseling performed?: Yes Alcohol intake: never Desire information about substance/drug rehabilitation?: No Lives independently: Yes Household members: friend(s) Marital status: Single service: No Current occupational status: employed Pets and animals: Yes History of recent travel: No Current gender identity: Male Physical Exam Const: COMMON NORMALS: no acute distress EXAM LIMITATIONS: no altered mental status GENERAL APPEARANCE: cooperative and comfortable ORIENTATION/CONSCIOUSNESS: Yes awake, Yes oriented to person, Yes oriented to place and Yes oriented to time HENMT: COMMON NORMALS: normocephalic, atraumatic and hearing grossly normal bilaterally HEAD & SCALP: normocephalic and atraumatic Eye: COMMON NORMALS: Equal, round and reactive pupils present, EOMs intact bilaterally, conjunctivae normal and no scleral icterus CONJUNCTIVA: Yes conjunctivae normal PUPIL: Yes Equal, round and reactive pupils present Neck/C-Spine: COMMON NORMALS: full ROM, no lymphadenopathy, supple and no JVD Lymph: LYMPHATIC: no lymphadenopathy noted and no lymphedema noted Resp: AUSCULTATION: rhonchi, wheezes and diminished lung sounds Cardio: COMMON NORMALS: no JVD, regular rate, regular rhythm and No murmurs present (Cardio) RATE: regular rate RHYTHM: regular rhythm GI: COMMON NORMALS: Soft to palpation and No hepatosplenomegaly present AUSCULTATION: Yes normoactive bowel sounds PALPATION: Yes Soft to palpation, No Tenderness to palpation present (GI), No Guarding due to palpation present (GI) and Yes No hepatosplenomegaly present Extremity: COMMON NORMALS: normal to inspection, capillary refill normal, no clubbing, cyanosis or edema, no calf tenderness and no pedal edema Neuro: SENSORIUM/ORIENTATION: Yes oriented to person, Yes oriented to place and Yes oriented to time Skin: COMMON NORMALS: no rashes or lesions noted GENERAL SKIN EXAM: no rashes or lesions noted Course Vital Signs: Vital signs: Vital Signs Temperature 97.4 F L 11/23/20 10:01 Pulse Rate 90 11/23/20 13:44 Respiratory Rate 22 H 11/23/20 13:44 Blood Pressure 114/80 11/23/20 13:44 Pulse Oximetry 99 11/23/20 13:44 MDM - Nausea/Vomiting/Diarrhea MDM Narrative: Medical decision making narrative: Discussed Dr. Lunsford and discussed with patient. Patient would like to go home. I think he would benefit from hospice. Discussed that. The patient and he agreed we made arrangements for him to consult at home he will follow up with Dr. Lunsford later this week. To discharge him home with a supplemental oral potassium and magnesium after receiving the IV here. Return if he has further problems. Lab Data: Labs: Lab Results 11/23/20 11/23/20 11/23/20 Range/Units 10:35 10:35 10:35 WBC 5.1 (4.0-10.0) 10^3/ uL RBC 2.58 L (4.1-5.3) 10^6/u L Hgb 8.0 L (11.7-16.6) g/dL Hct 22.2 L (42.0-52.0) % MCV 86.0 (80-94) fl MCH 31.0 (28.0-34.0) pg MCHC 36.0 (30.0-36.0) g/dL RDW 17.3 H (12.1-15.1) % Plt Count 120 L (130-400) 10^3/c mm MPV 12.3 H (7.4-10.4) fL Neut % (Auto) 71.9 % Lymph % (Auto) 19.9 % Kingman % (Auto) 7.6 % Eos % (Auto) 0.0 % Baso % (Auto) 0.2 % Neut # (Auto) 3.69 (1.8-7.7) 10^3/u L Lymph # (Auto) 1.0 (0.8-4.8) 10^3/u L Kingman # (Auto) 0.4 (0.2-0.9) 10^3/u L Eos # (Auto) 0.0 (0.0-0.8) 10^3/u L Baso # (Auto) 0.0 (0.0-0.1) 10^3/u L Nucleated RBC % (a uto) 0 % Nucleated RBCs # 0.0 /100WBC Sodium 137 (136-145) mmol/L Potassium 2.9 L (3.5-5.1) mmol/L Chloride 94 L (98-107) mmol/L Carbon Dioxide 26 (22-29) mmol/L Anion Gap 19.9 H (5-19) BUN 28 H (6-20) mg/dL Creatinine 1.1 (0.7-1.2) mg/dL GFR Calculation 69.0 L (90-130) mL/min Glucose 138 H (65-115) mg/dL Calculated Osmolal ity 292 (285-295) mOsm/k g Lactic Acid 1.8 (0.5-2.2) mmol/L Calcium 8.1 L (8.5-10.5) mg/dL Magnesium (1.7-2.3) mg/dL Total Bilirubin 0.6 (0.15-1.2) mg/dL AST 10 (0-40) U/L ALT < 5 (0-41) U/L Alkaline Phosphata se 87 (40-130) IU/L Total Protein 6.1 L (6.6-8.7) g/dL Albumin 3.9 (3.5-5.2) g/dL Globulin 2.2 (1.3-4.6) g/dL 11/23/20 Range/Units 10:35 WBC (4.0-10.0) 10^3/ uL RBC (4.1-5.3) 10^6/u L Hgb (11.7-16.6) g/dL Hct (42.0-52.0) % MCV (80-94) fl MCH (28.0-34.0) pg MCHC (30.0-36.0) g/dL RDW (12.1-15.1) % Plt Count (130-400) 10^3/c mm MPV (7.4-10.4) fL Neut % (Auto) % Lymph % (Auto) % Kingman % (Auto) % Eos % (Auto) % Baso % (Auto) % Neut # (Auto) (1.8-7.7) 10^3/u L Lymph # (Auto) (0.8-4.8) 10^3/u L Kingman # (Auto) (0.2-0.9) 10^3/u L Eos # (Auto) (0.0-0.8) 10^3/u L Baso # (Auto) (0.0-0.1) 10^3/u L Nucleated RBC % (a uto) % Nucleated RBCs # /100WBC Sodium (136-145) mmol/L Potassium (3.5-5.1) mmol/L Chloride (98-107) mmol/L Carbon Dioxide (22-29) mmol/L Anion Gap (5-19) BUN (6-20) mg/dL Creatinine (0.7-1.2) mg/dL GFR Calculation (90-130) mL/min Glucose (65-115) mg/dL Calculated Osmolal ity (285-295) mOsm/k g Lactic Acid (0.5-2.2) mmol/L Calcium (8.5-10.5) mg/dL Magnesium 1.0 L (1.7-2.3) mg/dL Total Bilirubin (0.15-1.2) mg/dL AST (0-40) U/L ALT (0-41) U/L Alkaline Phosphata se (40-130) IU/L Total Protein (6.6-8.7) g/dL Albumin (3.5-5.2) g/dL Globulin (1.3-4.6) g/dL Discharge Plan Discharge Patient Disposition: Home Clinical Impression: Adenocarcinoma of right lung, stage 4, Hypokalemia, Hypomagnesemia Condition: Stable Prescriptions: New potassium chloride 20 mEq tablet extended release 20 meq PO BID Qty: 30 RF: 0 magnesium oxide 400 mg magnesium tablet 400 mg PO BID Qty: 30 RF: 0 No Action albuterol sulfate 90 mcg/actuation HFA aerosol inhaler 2 puff inhalation Q6H MDD SEE PHARMACY COMMENT PRN (Reason: Shortness Of Breath) RF: 0 dexamethasone 4 mg tablet 4 mg PO BID RF: 0 cetirizine 10 mg Tablet 10 mg PO DAILY RF: 0 methadone 10 mg Tablet 10 mg PO BID@ RF: 0 simvastatin 40 mg Tablet 40 mg PO BEDTIME@1999 RF: 0 ibuprofen 200 mg Tablet 600 mg PO BID PRN (Reason: Pain) RF: 0 aspirin 81 mg Tablet,Chewable 81 mg PO DAILY@ RF: 0 Hold Instructions: Resume on 11/20/20. omeprazole 20 mg Tablet,Delayed Release (Dr/Ec) 20 mg PO BID@ RF: 0 hydrocodone-acetaminophen 5-325 mg tablet 1 tab PO Q6H PRN (Reason: pain) Qty: 20 RF: 0 ondansetron HCl [Zofran] 4 mg tablet 4 mg PO Q6H PRN (Reason: nausea and vomiting) Qty: 20 RF: 0 docusate sodium [Colace] 100 mg capsule 100 mg PO BID Qty: 30 RF: 0 lorazepam 1 mg tablet 1 mg PO BID RF: 0 nystatin 100,000 unit/mL Suspension See Rx Instructions .ROUTE .COMPLEX RF: 0 Compazine 10 mg Tablet 10 mg PO Q6H PRN (Reason: Nausea) RF: 0 folic acid 1 mg Tablet 1 mg PO DAILY RF: 0 Discharge Orders: Discharge ED (Routine); Ordered 11/23/20 Ordered By: Reginald Rust Referrals: Jv Robins MD [Primary Care Provider] - Discharge Diet: Usual diet Discharge Activity: Increase activity as tolerated Patient Instructions: Opioid Safety Activity Restrictions/Additional Instructions: Hospice will come to your home for consult. Follow-up with Dr. Lunsford later this week in his office call for an appointment. Return if you have further problems. Coding Level of Care Code ED Brim Pouncer Machine Operator for Chg Fwd Exam Comprehensive
[2020-11-23] MEDS: ondansetron 2 mg/ML SDV 2 mL 4 MG IVP (10:37)
[2020-11-23] MEDS: sodium chloride 0.9% 1,000 ML 999 ML IV (10:41)
[2020-11-23 10:48] LABS: Basophils % 0.2 %; Hematocrit 22.2 % (42.0-52.0); Lymphocytes % 19.9 %; Mean Platelet Volume 12.3 fL (7.4-10.4); Monocytes # 0.4 10^3/uL (0.2-0.9); Monocytes % 7.6 %; Neutrophils # 3.69 10^3/uL (1.8-7.7); Neutrophils % 71.9 %; Nucleated Red Blood Cells % 0 %; Platelet Count 120 10^3/cmm (130-400); Red Blood Count 2.58 10^6/uL (4.1-5.3); Red Cell Distribution Width 17.3 % (12.1-15.1); White Blood Count 5.1 10^3/uL (4.0-10.0)
[2020-11-23 11:06] VITALS: BP 109/79
[2020-11-23 11:07] LABS: Lactic Sepsis W/Reflex 1.8 mmol/L (0.5-2.2)
[2020-11-23 11:08] LABS: Alanine Aminotransferase < 5 U/L (0-41); Albumin Level 3.9 g/dL (3.5-5.2); Alkaline Phosphatase 87 IU/L (40-130); Anion Gap 19.9 (5-19); Aspartate Amino Transferase 10 U/L (0-40); Blood Urea Nitrogen 28 mg/dL (6-20); Calcium 8.1 mg/dL (8.5-10.5); Carbon Dioxide 26 mmol/L (22-29); Chloride 94 mmol/L (98-107); Globulin 2.2 g/dL (1.3-4.6); Glucose 138 mg/dL (65-115); Osmolality Calculated 292 mOsm/kg (285-295); Sodium 137 mmol/L (136-145); Total Bilirubin 0.6 mg/dL (0.15-1.2); Total Protein 6.1 g/dL (6.6-8.7)
[2020-11-23 11:22] LABS: Potassium 2.9 mmol/L (3.5-5.1)
[2020-11-23 12:17] VITALS: RESP 16
[2020-11-23] MEDS: morphine 4 mg/mL SDV 1 mL IVP (12:17)
[2020-11-23] MEDS: potassium chloride premix 100 ML 50 MEQ IV (12:18)
[2020-11-23] MEDS: magnesium sulfate premix 2 GM/50 ML PIGGYBACK IV (12:19)
[2020-11-23 12:26] VITALS: BP 110/84; PULSE 93; RESP 21; O2SAT 96
--- NOTE | 2020-11-23 13:20 | DCPLANNER ---
technical project manager was asked to speak with patient about hospice care. technical project manager spoke with patient about hospice, and asked patient which company that he would like to use. technical project manager gave patient the patient choice sheet, and he stated that he would like to use [facility]. technical project manager called Willie with [facility], gave her patients name, she stated that she would pull patients information, and would get in contact with patient and schedule a time for hospice to go to patients home and speak with patient. technical project manager informed patient that hospice would call patient and set up a time to meet patient at his home.
[2020-11-23 13:44] VITALS: BP 114/80; PULSE 90; RESP 22; O2SAT 99
== END 2020-11-23 14:35 | disposition home or self-care (01) ==
PROVIDERS: Physician Assistant; Emergency Provider Family Medicine; PCP Family Medicine
DX: C34.91 Malignant neoplasm of unspecified part of right bronchus or lung (principal); E87.6 Hypokalemia; E83.42 Hypomagnesemia; Z79.82 Long term (current) use of aspirin; J44.9 Chronic obstructive pulmonary disease, unspecified; Z86.73 Personal history of transient ischemic attack (TIA), and cerebral infarction without residual deficits; I10 Essential (primary) hypertension; E78.5 Hyperlipidemia, unspecified; F17.210 Nicotine dependence, cigarettes, uncomplicated
CPT/HCPCS: 71045; 80053; 83605; 83735; 85025; 96365; 96366; 96367; 96375; 99284; J2270; J2405; J3475; J3480; J7030

== ENCOUNTER 2020-12-23 00:36 | Inpatient (IN) | payer MEDICAID, SELFPAY ==
[2020-12-23] VITALS (12 sets, daily range): BP systolic 109–146; BP diastolic 72–103; PULSE 72–109; RESP 14–22; TEMP 36.4–37; O2SAT 94–100; BMI 18.1
--- NOTE | 2020-12-23 00:44 | W.ED.AMS ---
HPI - Altered Mental Status General: Chief Complaint: Altered Mental Status Stated Complaint: AMS Time Seen by Provider: 12/23/20 00:44 Limitations: altered mental status History of Present Illness: HPI narrative: Mr. Kwong is a 55-year-old gentleman with reported history of metastatic lung cancer presents emergency department with altered mental status. History is limited by mental status change however he was reportedly found wandering by police. And there is questionable seizure-like activity, he does reportedly have a history of seizures. He is unsure of many questions asked to him and trails off mid sentence. History is otherwise limited by mental status change PFS ED PFSH: Medical History Cancer of right lung COPD (chronic obstructive pulmonary disease) GERD (gastroesophageal reflux disease) History of TIA (transient ischemic attack) HTN (hypertension) Hyperlipidemia Lung cancer Methadone use Surgical History History of lung biopsy 2020 Port-A-Cath in place (08/04/20) S/P bronchoscopy Family History Father Heart attack Brother Heart attack Social History Smoking and tobacco status: current every day smoker cigarettes Packs smoked per day: 1 Years cigarettes smoked: 40 Quit status (tobacco): considering quitting Second hand smoke exposure: Yes Smoking risk assessment/counseling performed?: Yes Alcohol intake: never Desire information about substance/drug rehabilitation?: No Lives independently: Yes Household members: friend(s) Marital status: Single service: No Current occupational status: employed Pets and animals: Yes History of recent travel: No Current gender identity: Male Physical Exam Narrative: EXAM NARRATIVE: GENERAL/CONSTITUTIONAL -chronically ill appearing. No acute distress. Eyes - PERRL, no conjunctival injection ENMT - Atraumatic external nose and ears. Moist mucous membranes NECK - supple. trachea midline CARDIOVASCULAR - regular rate and rhythm. RESPIRATORY -clear to auscultation bilaterally. ABDOMEN/GI - Nontender, Nondistended. MSK - Extremities without obvious deformity or tenderness to palpation SKIN - Warm, Dry NEURO - alert but somewhat somnolent, not oriented. Moves all extremities without focal neurologic deficits appreciated. PSYCH -impaired cognition and memory Course ED course: - Patient was seen and evaluated by me at bedside - Patient placed on cardiac monitors, IV access obtained - Initial evaluation notable for encephalopathy as above, questionable postictal. - Labs notable for leukocytosis, macrocytic anemia. Metabolic panel notable for mild hypokalemia, creatinine elevated well above baseline. Troponin elevated. BNP elevated - Imaging notable for no acute intracranial hemorrhage or mass. - Upon serial reexamination after treatment the patient was somewhat improved with mental status though would not completely to baseline. Discussed risks of heparin with regards to brain mets, patient verbalized understanding of risks. - Based on patient history, evaluation, labs, and imaging as interpreted the most likely cause of the patient's condition is unclear - The results of ED evaluation were discussed with the patient including plan for admission due to requirement for level of care not available if discharged to prevent significant worsening/deterioration. -Hospitalist service contacted and agreed admit the patient - Patient was admitted without further deterioration or significant events. Vital Signs: Vital signs: Vital Signs Temperature 98.5 F 12/24/20 16:24 Pulse Rate 88 12/24/20 16:24 Respiratory Rate 16 12/24/20 16:24 Blood Pressure 128/71 12/24/20 16:24 Pulse Oximetry 95 12/24/20 16:24 MDM - Altered Mental Status Medical Records: Attestation: I reviewed the patient's medical records. Lab Data: Attestation: I reviewed the patient's lab results. Labs: Lab Results 12/23/20 12/23/20 12/23/20 01:10 01:10 01:10 WBC 16.1 10^3/uL H 10 ^3/uL (4.0-10.0) RBC 2.50 10^6/uL L 10 ^6/uL (4.1-5.3) Hgb 8.4 g/dL L g/dL (11.7-16.6) Hct 25.4 % L % (42.0-52.0) MCV 101.6 fl H fl (80-94) MCH 33.6 pg pg (28.0-34.0) MCHC 33.1 g/dL g/dL (30.0-36.0) RDW 17.9 % H % (12.1-15.1) Plt Count 211 10^3/cmm 10^3 /cmm (130-400) MPV 11.1 fL H fL (7.4-10.4) Neut % (Auto) 94.4 % % Lymph % (Auto) 1.7 % % [place] % (Auto) 3.3 % % Eos % (Auto) 0.0 % % Baso % (Auto) 0.1 % % Neut # (Auto) 15.24 10^3/uL H 1 0^3/uL (1.8-7.7) Lymph # (Auto) 0.3 10^3/uL L 10^ 3/uL (0.8-4.8) [place] # (Auto) 0.5 10^3/uL 10^3/ uL (0.2-0.9) Eos # (Auto) 0.0 10^3/uL 10^3/ uL (0.0-0.8) Baso # (Auto) 0.0 10^3/uL 10^3/ uL (0.0-0.1) Nucleated RBC % (a uto) 0 % % Nucleated RBCs # 0.0 /100WBC /100W BC APTT Specimen Type Sample Site ABG pH ABG pCO2 ABG pO2 ABG HCO3 ABG Base Excess Vinh Test Hematocrit O2 Delivery Device FiO2 Practical Nursing Faculty ID Sodium 135 mmol/L L mmol /L (136-145) Potassium 3.2 mmol/L L mmol /L (3.5-5.1) Chloride 98 mmol/L mmol/L (98-107) Carbon Dioxide 18 mmol/L L mmol/ L (22-29) Anion Gap 22.2 H (5-19) BUN 42 mg/dL H mg/dL (6-20) Creatinine 1.9 mg/dL H mg/dL (0.7-1.2) GFR Calculation 36.7 mL/min L mL/ min (90-130) Glucose 127 mg/dL H mg/dL (65-115) POC Glucose Estimat Average Gl ucose Hemoglobin A1c Calculated Osmolal ity 292 mOsm/kg mOsm/ kg (285-295) Lactate 1.8 mmol/L mmol/L (0.5-2.2) Calcium 9.2 mg/dL mg/dL (8.5-10.5) Total Bilirubin 0.4 mg/dL mg/dL (0.15-1.2) AST 9 U/L U/L (0-40) ALT < 5 U/L U/L (0-41) Alkaline Phosphata se 59 IU/L IU/L (40-130) Troponin T Baselin e NT-Pro-B Natriuret Pep 5384 pg/mL H pg/m L (0-125) Total Protein 6.4 g/dL L g/dL (6.6-8.7) Albumin 3.8 g/dL g/dL (3.5-5.2) Globulin 2.6 g/dL g/dL (1.3-4.6) Procalcitonin TSH 1.25 uIU/mL uIU/m L (0.27-4.20) 12/23/20 12/23/20 12/23/20 01:10 01:10 01:10 WBC RBC Hgb Hct MCV MCH MCHC RDW Plt Count MPV Neut % (Auto) Lymph % (Auto) [place] % (Auto) Eos % (Auto) Baso % (Auto) Neut # (Auto) Lymph # (Auto) [place] # (Auto) Eos # (Auto) Baso # (Auto) Nucleated RBC % (a uto) Nucleated RBCs # APTT 27.8 SECONDS SECO NDS (23.9-36.7) Specimen Type Sample Site ABG pH ABG pCO2 ABG pO2 ABG HCO3 ABG Base Excess Vinh Test Hematocrit O2 Delivery Device FiO2 Practical Nursing Faculty ID Sodium Potassium Chloride Carbon Dioxide Anion Gap BUN Creatinine GFR Calculation Glucose POC Glucose Estimat Average Gl ucose Hemoglobin A1c Calculated Osmolal ity Lactate Calcium Total Bilirubin AST ALT Alkaline Phosphata se Troponin T Baselin e 317 ng/L H* ng/L (0-15) NT-Pro-B Natriuret Pep Total Protein Albumin Globulin Procalcitonin 0.84 ng/mL H ng/m L (0-0.5) TSH 12/23/20 12/23/20 12/23/20 01:10 01:29 02:00 WBC RBC Hgb Hct MCV MCH MCHC RDW Plt Count MPV Neut % (Auto) Lymph % (Auto) [place] % (Auto) Eos % (Auto) Baso % (Auto) Neut # (Auto) Lymph # (Auto) [place] # (Auto) Eos # (Auto) Baso # (Auto) Nucleated RBC % (a uto) Nucleated RBCs # APTT Specimen Type Arterial Sample Site Brachial, left ABG pH 7.43 (7.35-7.45) ABG pCO2 31.0 mmHg L mmHg (35-45) ABG pO2 84.5 mmHg mmHg (80.0-100.0) ABG HCO3 20.4 mmol/L L mmo l/L (22-26) ABG Base Excess -3.5 mmol/L L mmo l/L (-2.0-2.0) Vinh Test N/a Hematocrit 24.2 % L % (42-52) O2 Delivery Device None FiO2 21.0 % % Practical Nursing Faculty ID Rieri Sodium Potassium Chloride Carbon Dioxide Anion Gap BUN Creatinine GFR Calculation Glucose POC Glucose 153 mg/dL H mg/dL (70-110) Estimat Average Gl ucose 80 Hemoglobin A1c 4.4 % % (4.0-6.0) Calculated Osmolal ity Lactate Calcium Total Bilirubin AST ALT Alkaline Phosphata se Troponin T Baselin e NT-Pro-B Natriuret Pep Total Protein Albumin Globulin Procalcitonin TSH EKG Data^: EKG 1: Attestation: I personally reviewed and interpreted this EKG as follows: EKG interpretation date: 12/23/20 EKG interpretation time: 00:59 Interpretation: Twelve-lead EKG shows a regular rhythm at a rate of 97. TN interval 136, QRS duration 92, QTc 445. Interpretation: Sinus rhythm. Normal axis. EKG 2: Attestation: I personally reviewed and interpreted this EKG as follows: EKG interpretation date: 12/23/20 EKG interpretation time: 04:19 Interpretation: Twelve-lead EKG shows a regular rhythm at a rate of 90. TN interval 134, QRS duration 86, QTc 436. Normal axis. Interpretation: Sinus rhythm. Similar to prior Discharge Plan Discharge Patient Disposition: Admitted As Inpatient Admit Provider: Jessica Aviles Clinical Impression: JUS (acute kidney injury), Altered mental status, Acute non-ST elevation myocardial infarction (NSTEMI) Condition: Stable Discharge Diet: Regular Discharge Activity: Resume usual activity Coding Level of Care Code ED Radio Mechanic Helper for Donovan Sanchez
--- NOTE | 2020-12-23 00:46 | CTR_ITS ---
PROCEDURE INFORMATION: Exam: CT Head Without Contrast Exam date and time: 12/23/2020 12:46 AM Age: 55 years old Clinical indication: Altered mental status/memory loss; Patient HX: Patient found walking on side of the road by police. Patient appears confused and lethargic. History of stage 4 brain cancer. ; Additional info: AMS TECHNIQUE: Imaging protocol: Computed tomography of the head without contrast. Radiation optimization: All CT scans at this facility use at least one of these dose optimization techniques: automated exposure control; mA and/or kV adjustment per patient size (includes targeted exams where dose is matched to clinical indication); or iterative reconstruction. COMPARISON: CT head wo con* [id number] 11/10/2020 3:16 PM RADIATION DOSE METRICS: Total DLP (mGy-cm): 889.22 FINDINGS: Brain: No acute intracranial hemorrhage or mass effect. There is mild decreased attenuation in the periventricular white matter, likely from microvascular disease. No definite acute infarct by CT. MRI could be more sensitive/specific for detection, as clinically directed. Cerebral ventricles: Ventricle size is normal for age. Paranasal sinuses: Included paranasal sinuses are essentially clear. Mastoid air cells: No significant acute finding. Bones/joints: No definite acute skull fracture. CT/CT head wo con* [id number] IMPRESSION: 1. No acute intracranial hemorrhage or mass effect. 2. Changes of microvascular disease. 3. No definite acute infarct by CT, see above. 4. Other findings discussed above. Radiation Dose CTDIVOL = (mGy): DLP = 889.22 (mGy-cm)
--- NOTE | 2020-12-23 01:00 | XRR_ITS ---
PROCEDURE INFORMATION: Exam: XR Chest Exam date and time: 12/23/2020 1:00 AM Age: 55 years old Clinical indication: Chest pressure; Prior surgery; Surgery type: Port a cath; Patient HX: C/O chest pain. History of copd. TECHNIQUE: Imaging protocol: XR of the chest. Views: 1 view. COMPARISON: CR XR chest 1V portable [id number] 11/23/2020 10:43 AM FINDINGS: Tubes, catheters and devices: Essentially stable position of left-sided Port-A-Cath. Lungs: No CHF/pulmonary edema. Right apical opacification/mass, probably not significantly changed. The lungs otherwise appear essentially clear. Pleural spaces: No visible pneumothorax. No pleural fluid. Heart/Mediastinum: Heart size is normal. Bones/joints: No significant acute finding. XR/XR chest 1V portable [id number] IMPRESSION: 1. No definite CHF or pneumonia. 2. Right apical opacification/mass, probably not significantly changed. 3. Other findings discussed above. Radiation Dose CTDIVOL = (mGy): DLP = (mGy-cm)
--- NOTE | 2020-12-23 01:20 | ECG_ITS ---
[facility] Test Date: 2020-12-23 Pat Name: Kevin Omalley Department: Room: Gender: Male Audiovisual Tech: : 1965 Requested By: Reece Forman Order Number: [id number] Devin MD: Lauryn Long M.D. Measurements Intervals [place] Rate: 97 P: 78 NH: 136 QRS: 69 QRSD: 92 T: 72 QT: 349 QTc: 445 Interpretive Statements SINUS RHYTHM POSSIBLE RIGHT ATRIAL ENLARGEMENT [0.25mV P-WAVE] No previous ECG available for comparison Electronically Signed On 12-24-2020 5:46:19 CDT by Lauryn Long M.D. [id number]
[2020-12-23 01:32] LABS: Basophils % 0.1 %; Hematocrit 25.4 % (42.0-52.0); Hemoglobin 8.4 g/dL (11.7-16.6); Lymphocytes # 0.3 10^3/uL (0.8-4.8); Lymphocytes % 1.7 %; Mean Corpuscular HGB Conc 33.1 g/dL (30.0-36.0); Mean Corpuscular Hemoglobin 33.6 pg (28.0-34.0); Mean Corpuscular Volume 101.6 fl (80-94); Mean Platelet Volume 11.1 fL (7.4-10.4); Monocytes # 0.5 10^3/uL (0.2-0.9); Monocytes % 3.3 %; Neutrophils # 15.24 10^3/uL (1.8-7.7); Neutrophils % 94.4 %; Nucleated Red Blood Cells % 0 %; Platelet Count 211 10^3/cmm (130-400); Red Cell Distribution Width 17.9 % (12.1-15.1); White Blood Count 16.1 10^3/uL (4.0-10.0)
[2020-12-23 01:33] LABS: Glucose Point of Care 153 mg/dL (70-110)
[2020-12-23] MEDS: sodium chloride 0.9% 1,000 ML 999 ML IV (01:40)
--- NOTE | 2020-12-23 01:40 | PC.NURSE ---
Attempted but was unable to give urine specimen. Will try again after some fluids infuse.
[2020-12-23 01:48] LABS: Lactate (Lactic Acid level) 1.8 mmol/L (0.5-2.2)
[2020-12-23 02:07] LABS: Alanine Aminotransferase < 5 U/L (0-41); Albumin Level 3.8 g/dL (3.5-5.2); Alkaline Phosphatase 59 IU/L (40-130); Anion Gap 22.2 (5-19); Aspartate Amino Transferase 9 U/L (0-40); Blood Urea Nitrogen 42 mg/dL (6-20); Calcium 9.2 mg/dL (8.5-10.5); Carbon Dioxide 18 mmol/L (22-29); Chloride 98 mmol/L (98-107); Globulin 2.6 g/dL (1.3-4.6); Glomerular Filtration Rate 36.7 mL/min (90-130); Glucose 127 mg/dL (65-115); NT Pro B Type Natriuretic Pept 5384 pg/mL (0-125); Osmolality Calculated 292 mOsm/kg (285-295); Potassium 3.2 mmol/L (3.5-5.1); Sodium 135 mmol/L (136-145); Thyroid Stimulating Hormone 1.25 uIU/mL (0.27-4.20); Total Bilirubin 0.4 mg/dL (0.15-1.2); Total Protein 6.4 g/dL (6.6-8.7)
[2020-12-23 02:09] LABS: Troponin(5th) Baseline 317 ng/L (0-15)
[2020-12-23 02:10] LABS: ABG PH Result 7.43 (7.35-7.45); Arterial Blood Gas Hematocrit 24.2 % (42-52); Base Excess ABG -3.5 mmol/L (-2.0-2.0); Blood Gas Sample Site Brachial, left; Blood Gas Sample Type Arterial; HCO3 ABG 20.4 mmol/L (22-26); PO2 ABG 84.5 mmHg (80.0-100.0)
[2020-12-23] MEDS: aspirin 81 mg Chew Tablet 324 MG PO (02:11)
--- NOTE | 2020-12-23 02:17 | PC.NURSE ---
Still unable to provide urine specimen. notified.
--- NOTE | 2020-12-23 02:17 | PC.NURSE ---
States his chest is hurting, reports pain is 6/10 . MD notified.
[2020-12-23 02:37] LABS: Procalcitonin 0.84 ng/mL (0-0.5)
[2020-12-23] MEDS: fentaNYL 50 mcg/mL INJ 2mL IVP (02:37)
[2020-12-23] MEDS: cefepime 2,000 MG in sodium chloride 0.9% (plus) 50 ML 100 MG IV (02:44)
--- NOTE | 2020-12-23 03:20 | ECG_ITS ---
[facility] Test Date: 2020-12-23 Pat Name: Kevin Omalley Department: Room: 278 Gender: Male Senior Architect/Design Manager: : 1965 Requested By: Reece Forman Order Number: [id number] Devin MD: Lauryn Long M.D. Measurements Intervals [place] Rate: 90 P: 75 CT: 134 QRS: 78 QRSD: 86 T: 68 QT: 356 QTc: 436 Interpretive Statements SINUS RHYTHM RIGHT ATRIAL ENLARGEMENT [0.3mV P-WAVE] Compared to ECG 12/23/2020 00:53:32 No significant changes Electronically Signed On 12-24-2020 5:53:39 CDT by Lauryn Long M.D. [id number]
--- NOTE | 2020-12-23 03:20 | PC.NURSE ---
Straight cath performed for urine per MD; pt tolerated well. Urine sent to the lab.
[2020-12-23 03:33] LABS: Add Urine Culture? No; Add Urine Microscopic? YES; Bacteria Urine TRACE /hpf; Bilirubin Urine Neg (Negative); Blood Urine 2+ (Negative); Glucose Urine UA Norm (Normal); Ketones Urine Negative (Negative); Leukocyte Esterase Urine Negative (Negative); Mucus Urine TRACE /hpf; Nitrate Urine Negative (Negative); Protein Urine Neg (Negative); RBC Urine 0-4 /hpf (0-2); Specific Gravity, Urine 1.015 (1.005-1.030); Squamous Epithelial Cell Urine 0-4 /hpf (0-5); Urine Appearance Clear (CLEAR); Urine Color Amber (Yellow); Urobilinogen Urine Norm (Negative); pH Urine 5 (5-7)
[2020-12-23] MEDS: heparin 5,000 unit/mL INJ 1 mL IV (03:43)
[2020-12-23] MEDS: heparin drip 25,000 UNIT/500 ML PREMIX 16.51 UNIT IV (03:50)
[2020-12-23 04:17] LABS: Troponin 5 2HR 268.8 ng/L (0-15)
[2020-12-23 04:58] LABS: Partial Thromboplastin Time 27.8 SECONDS (23.9-36.7)
--- NOTE | 2020-12-23 06:12 | P.HP_ITS ---
Providers/Chief Complaint Admitting Physician: Jessica Aviles Primary Care Provider: Jv Robins MD Chief Complaint: AMS History of Present Illness 55-year-old male with a past medical history significant for tobacco abuse, hypertension, dyslipidemia, chronic obstructive pulmonary disease, chronic methadone use, non-small cell lung cancer with presented to the hospital with altered mental status. Patient was apparently found wondering confused by police officers. During this time he was apparently complaining of chest discomfort. He was not able to provide any history at the time of my evaluation. Laboratory workup on arrival showed a WBC of 16.1, hemoglobin 8.4, hematocrit of 25.4 and a platelet count of 211. Sodium 135, potassium 3.2, chloride 98, bicarb 18, BUN 42 and creatinine of 1.9. Prior creatinine in November of 2020 was 1.1. Troponin T baseline of 317, 268.8 at 2h. ProBNP of 5384. Procalcitonin of 0.84. TSH of 1.25. Imaging studies in ER included a head CT which did not show any evidence of acute intracranial hemorrhage or mass. Chest x-ray which did not show any evidence of CHF or pneumonia. Emergency room he was started on heparin drip per ACS protocol, aspirin 324 mg p.o. x1, fentanyl 50 mcg IV x1, 1 L bolus of NS, and cefepime 2 g IV x1. Review of Systems General: Reports: ROS unobtainable due to mental status Medications/Allergies Home Medications Medication Instructions Recorded Confirmed Last Taken Type aspirin 81 mg PO DAILY@07/05/20 12/07/20 07/19/20 History cetirizine 10 mg PO DAILY 07/05/20 12/07/20 08/03/20 History ibuprofen 600 mg PO BID PRN 07/05/20 12/07/20 08/03/20 History methadone 10 mg PO BID@07/05/20 12/07/20 08/04/20 06:00 History omeprazole 20 mg PO BID@07/05/20 12/07/20 08/03/20 History simvastatin 40 mg PO BEDTIME@199907/05/20 12/07/20 08/03/20 History albuterol sulfate 90 mcg/actuation 2 puff INHALATION Q6H PRN MDD SEE 07/16/20 12/07/20 07/20/20 04:30 History aerosol inhaler PHARMACY COMMENT docusate sodium [Colace] 100 mg PO BID #30 cap 08/04/20 12/07/20 Unknown Rx hydrocodone-acetaminophen 1 tab PO Q6H PRN #20 tab 08/04/20 12/07/20 Unknown Rx ondansetron HCl [Zofran] 4 mg PO Q6H PRN #20 tab 08/04/20 12/07/20 Unknown Rx dexamethasone 4 mg tablet 4 mg PO BID 08/06/20 12/07/20 Unknown History Compazine 10 mg PO Q6H PRN 11/10/20 12/07/20 Unknown History folic acid 1 mg PO DAILY 11/10/20 12/07/20 Unknown History lorazepam 1 mg PO BID 11/10/20 12/07/20 Unknown History nystatin See Rx Instructions .ROUTE .COMPLEX 11/10/20 12/07/20 Unknown History magnesium oxide 400 mg PO BID #30 tab 11/23/20 12/07/20 Unknown Rx potassium chloride 20 meq PO BID #30 tab 11/23/20 12/07/20 Unknown Rx umeclidinium 62.5 mcg-vilanterol 1 inh INHALATION DAILY 30 Days #60 12/07/20 12/07/20 Unknown Rx 25 mcg/actuation powdr for ea inhalation Allergies Allergy/AdvReac Type Severity Reaction Status Date / Time No Known Allergies Allergy Verified 12/07/20 14:49 PFSH Acute PFSH: Medical History Cancer of right lung COPD (chronic obstructive pulmonary disease) GERD (gastroesophageal reflux disease) History of TIA (transient ischemic attack) HTN (hypertension) Hyperlipidemia Lung cancer Methadone use Surgical History History of lung biopsy 2020 Port-A-Cath in place (08/04/20) S/P bronchoscopy Family History Father Heart attack Brother Heart attack Social History Smoking and tobacco status: current every day smoker cigarettes Packs smoked per day: 1 Years cigarettes smoked: 40 Quit status (tobacco): considering quitting Second hand smoke exposure: Yes Smoking risk assessment/counseling performed?: Yes Alcohol intake: never Desire information about substance/drug rehabilitation?: No Lives independently: Yes Household members: friend(s) Marital status: Single service: No Current occupational status: employed Pets and animals: Yes History of recent travel: No Current gender identity: Male Vitals/I&O/Wt Last Vital Signs Temp 98.1 F 12/23/20 00:44 Pulse 78 12/23/20 04:55 Resp 16 12/23/20 04:55 BP 120/78 12/23/20 04:55 Pulse Ox 96 12/23/20 04:55 12/22/20 12/22/20 12/23/20 14:59 22:59 06:59 Intake Total 1050 / 1050 Balance 1050 / 1050 Weight last 48 hrs Weight 58.967 kg Physical Exam Narrative: EXAM NARRATIVE: General: Alert awake however confused. HEENT; Grossly unremarkable CVS; RRR Chest Nonlabored respiration Abd; Soft, NT Ext no edema Data : 12/23/20 01:10 12/23/20 01:10 Micro: Microbiology 12/23/20 03:58 Blood Culture - Preliminary Blood SPECIMEN COLLECTED 12/23/20 03:36 Blood Culture - Preliminary Blood SPECIMEN COLLECTED A&P Assessment and plan (1) Altered mental status: Status: Acute (2) Acute non-ST elevation myocardial infarction (NSTEMI): Status: Acute (3) JUS (acute kidney injury): Status: Acute (4) Adenocarcinoma of right lung, stage 4: Status: Acute Additional A&P Information Acute kidney injury Creatinine 1.9 NS bolus in ER NS at 75 cc/hr Repeat BMP in am Monitor u/o Renally dose meds NSTEMI Noted CP prior to arrival ECHO ordered Heparin drip Aspirin 324 mg PO qday Consider cardiology consult in am Altered Mental Status Etiology unclear ? possibly infectious vs Metabolic in setting of renal failure Baseline mental status unclear CT head ? no acute abnormality NPO Cefepime 2g IV x 1 in ER No clear source of infection Monitor off abx Procal elevated -? due to renal failure Hypokalemia K 3.2 Kdur 20meq po x 1 Repeat BMP in am Chronic obstructive pulmonary disease Duoneb q6hr prn Supplemental o2 as needed. Chronic methadone use Will hold for now Hx of NSCLC s/p Chemo Following oncology outpatient DVT ppx Heparin drip Attestations Medical Necessity Statement*: anticipate > 2 midnight stay in hospital for eval and treatment Time Spent in Patient Care: Greater than 35 minutes (>than 50% of time spent in counselling and/or direct pt care on unit) . Coding Level of Care Code Acute Industrial Chemicals Supervisor for Donovan Sanchez Diagnoses Altered mental status R41.82 Acute non-ST elevation myocardial infarction (NSTEMI) I21.4 JUS (acute kidney injury) N17.9 Adenocarcinoma of right lung, stage 4 C34.91
[2020-12-23] MEDS: potassium chloride ER 20 mEq Tablet PO (06:37)
--- NOTE | 2020-12-23 07:20 | ECG_ITS ---
[facility] Test Date: 2020-12-23 Pat Name: Kevin Omalley Department: Room: 278 Gender: Male Sample Card Maker: : 1965 Requested By: Reece Forman Order Number: [id number] Devin MD: Lauryn Long M.D. Measurements Intervals [place] Rate: 87 P: 145 CT: 122 QRS: 150 QRSD: 90 T: 140 QT: 366 QTc: 442 Interpretive Statements ECTOPIC ATRIAL RHYTHM POSSIBLE LEAD REVERSAL POSSIBLE LEFT ATRIAL ENLARGEMENT [-0.1mV P-WAVE IN V1/V2] POSSIBLE RIGHT VENTRICULAR HYPERTROPHY Compared to ECG 12/23/2020 04:11:17 Ectopic atrial rhythm now present Sinus rhythm no longer present Electronically Signed On 12-24-2020 5:52:14 CDT by Lauryn Long M.D. [id number]
[2020-12-23 07:51] LABS: Troponin 5 6HR 235.1 ng/L (0-15)
[2020-12-23] MEDS: sodium chloride 0.9% 1,000 ML 75 ML IV ×2 (08:16→21:51)
[2020-12-23] MEDS: aspirin 325 mg EC Tablet PO (08:28)
[2020-12-23 08:59] LABS: Partial Thromboplastin Time 108.6 SECONDS (23.9-36.7)
--- NOTE | 2020-12-23 09:19 | PC.PHAR ---
Addendum entered by Marianna Magana 12/23/20 09:24: mandie states the pt has meds in a bag that he isnt suppose to use yet-[facility] pharmacy filled 11/24/20 haloperidol con 2mg/ml-lorazepam con 2mg/ml,atropine winter 1% -morphine sul 100mg/5ml and acetamine sup 650mg Original Note: pts life partner mandie verified the pts medications-mandie states hospice dced most of his meds 2 weeks ago-[facility] med list has zyrtec 10mg daily-zofran 4mg q6h prn-maalox as directed-magic mouthwash 5ml q4h prn-folic acid 1mg daily-mag ox 400mg bid-and vitamin c gummies 3 gummies daily-nystatin swish and spit qid -madnie states all those medications were dced-mandie states the pt only takes the medications entered-notes are made in the pharmacy comments
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
--- NOTE | 2020-12-23 11:21 | PC.CHAP ---
Pastoral Care Encounter/Spiritual Assessment Type of Contact [x] Declined pin drafting machine tender visit [] Patient/Family/Request visit [] Outpatient visit [] Follow-up visit [] Physician referral [] Code/Alert [] Routine visit [] Staff referral [] Actively dying [] Patient sleeping [] Family support [] [] Out of room [] Palliative care [] [] Receiving care in room [] Pre-surgical visit [] Trauma [] Long length of stay [] ICU visit [] Other: Relational/Emotional Strength [] Patient feels connected with others/family/visitors/staff [] Distress [] Loneliness/isolation [] Abandonment Spirituality of Patient [] Person of Shanna [] Attends Yazdanism of their Shanna [] Believes in Prayer [] Reads Bible or Baptist materials [] There are Spiritual issues to be addressed [employer]ent [employer] Lead Interventions [] Prayer [] Active listening [] Non-anxious presence [] Spiritual/emotional support [] Crisis/trauma care [] Spiritual counseling [] Bereavement support [] Provided bereavement packet [] Provided Bible/devotional materials [] Provided toy/stuffed animal, coloring book to patient or family member [] Provided Communion [] Anointing/[place] [] Salvation [] Completed spiritual assessment [] Other: Impact on Illness or Injury [] Angry [] Fearful [] Anxious [] Often cries [] Exhaustion [] Unable to work [] Unable to attend gnosticism [] Unable to walk/stand [] Unable to read [] Unable to drive [] Unable to eat/drink [] Unable to sleep [] Unable to be with family [] Patient intubated [] Other: Summary Declined pin drafting machine tender visit Time spent with patient 5 mins
--- NOTE | 2020-12-23 11:29 | PC.NURSE ---
Heparin drip discontinued per orders.
--- NOTE | 2020-12-23 12:09 | PC.NURSE ---
pt wanted to speak to brother Brian Omalley. We did not have his number but [facility] Hospice nurse Cali gave us the number [phone]. Pt is speaking to him at this time.
--- NOTE | 2020-12-23 14:07 | PC.NURSE ---
Greg Vines notified that patient has been unable to void since admission from ER this morning where he was straight cath. Order received to place carr- 925cc out shortly after placement. Pt tolerated well.
[2020-12-23] MEDS: haloperidol inj 5 mg/mL INJ 1 mL IVP ×2 (14:29→22:29)
--- NOTE | 2020-12-23 15:38 | PC.NURSE ---
Pt now requiring 1:1 sitter. Haldol IVP administered per orders. Pt has removed IV. Port accessible and now hooked to IVF.
--- NOTE | 2020-12-23 17:11 | PC.NURSE ---
Pt refusing to keep telemetry on and keeps taking it off despite 1:1 sitter.
[2020-12-23] MEDS: heparin 5,000 unit/mL INJ 1 mL 5000 UNIT SUBCUT (18:25)
[2020-12-23] MEDS: atorvastatin 40 mg Tablet 20 MG PO (21:50)
[2020-12-24] VITALS: BP 108/74; PULSE 82; RESP 16; TEMP 36.4; O2SAT 96
[2020-12-24 04:00] VITALS: BP 108/84; PULSE 82; RESP 21; TEMP 36.9; O2SAT 97
[2020-12-24] MEDS: heparin 5,000 unit/mL INJ 1 mL 5000 UNIT SUBCUT (05:08)
[2020-12-24 05:50] LABS: Eosinophils % 0.1 %; Hematocrit 22.2 % (42.0-52.0); Lymphocytes % 13.6 %; Mean Corpuscular HGB Conc 31.5 g/dL (30.0-36.0); Mean Corpuscular Hemoglobin 33.3 pg (28.0-34.0); Mean Corpuscular Volume 105.7 fl (80-94); Mean Platelet Volume 10.2 fL (7.4-10.4); Monocytes # 0.5 10^3/uL (0.2-0.9); Monocytes % 6.9 %; Neutrophils # 5.79 10^3/uL (1.8-7.7); Neutrophils % 78.7 %; Nucleated Red Blood Cells % 0 %; Platelet Count 160 10^3/cmm (130-400); Red Cell Distribution Width 17.7 % (12.1-15.1); White Blood Count 7.4 10^3/uL (4.0-10.0)
[2020-12-24 06:17] LABS: Thyroid Stimulating Hormone 1.12 uIU/mL (0.27-4.20)
[2020-12-24 06:28] LABS: Alanine Aminotransferase < 5 U/L (0-41); Albumin Level 3.2 g/dL (3.5-5.2); Alkaline Phosphatase 50 IU/L (40-130); Anion Gap 16.9 (5-19); Aspartate Amino Transferase 10 U/L (0-40); Blood Urea Nitrogen 29 mg/dL (6-20); Calcium 8.2 mg/dL (8.5-10.5); Carbon Dioxide 19 mmol/L (22-29); Chloride 105 mmol/L (98-107); Cholesterol 195 mg/dL (0-200); Globulin 1.8 g/dL (1.3-4.6); Glucose 69 mg/dL (65-115); HDL Cholesterol 50 mg/dL (60-100); LDL Cholesterol Calculated 96 mg/dL (50-129); LDL HDL Ratio 1.92 RATIO (0.00-3.22); Magnesium 1.5 mg/dL (1.7-2.3); Osmolality Calculated 290 mOsm/kg (285-295); Sodium 138 mmol/L (136-145); Total Bilirubin 0.3 mg/dL (0.15-1.2); Triglycerides 247 mg/dL (0-150)
--- NOTE | 2020-12-24 06:30 | USCV_ITS ---
Kevin Omalley Age: 55 Gender: M : 1965 Exam Date: 12/24/2020 06:24 Ordering Phys: Jessica Aviles MD Technologist: Tri Ott Exam Location: [facility] [place] Indication: ELEVATED TROPONIN BP: 108 / 74 HR: 79 Rhythm: Sinus Technical Quality: Technically difficult study MEASUREMENTS (Male / Female) Normal Values DOPPLER AV Peak Velocity 125.0 cm/s LVOT Peak Velocity 99.0 cm/s TR Peak Velocity 210.0 cm/s TR Peak Gradient 17.6 mmHg Right Atrial Pressure 3.0 mmHg Pulmonary Artery Systolic Pressu 20.6 mmHg FINDINGS Left Ventricle Normal left ventricular cavity size. Normal left ventricular systolic function. Left ventricular ejection fraction is estimated at 60 %. This study is inadequate for estimation of regional wall motion abnormality. Right Ventricle Normal right ventricular size and systolic function. Right Atrium Right atrium not well visualized. Right atrial pressure estimated at 3 mmHg. Left Atrium Left atrium not well visualized. Mitral Valve Mitral valve not well visualized. Aortic Valve No aortic valve stenosis. Mild aortic valve regurgitation. Tricuspid Valve Structurally normal tricuspid valve. No significant tricuspid valve regurgitation. Pulmonic Valve Pulmonic valve not well visualized. Pericardium Trivial to small pericardial effusion along right ventricle. No evidence of hemodynamic compromise. Aorta Normal-sized inferior vena cava with normal respiratory variation. CONCLUSIONS 1. This is a technically difficult study with only subcostal windows. 2. Normal left ventricular cavity size. Normal left ventricular systolic function. Left ventricular ejection fraction is estimated at 60 %. This study is inadequate for estimation of regional wall motion abnormality. 3. Normal right ventricular size and systolic function. 4. No prior similar studies to compare. Lauryn Long MD (Electronically Signed) Final Date: 24 December 2020 14:00 S
[2020-12-24 06:38] LABS: Potassium 2.9 mmol/L (3.5-5.1)
[2020-12-24 08:00] VITALS: BP 138/74; PULSE 86; RESP 16; TEMP 36.8; O2SAT 100
[2020-12-24 08:09] LABS: Estmated Average Glucose 80; Hemoglobin A1C 4.4 % (4.0-6.0)
[2020-12-24 08:15] VITALS: PULSE 85; RESP 18; O2SAT 98
[2020-12-24] MEDS: sodium chloride 0.9% 1,000 ML 75 ML IV (08:26)
[2020-12-24] MEDS: aspirin 325 mg EC Tablet PO (08:27)
--- NOTE | 2020-12-24 09:31 | PC.NURSE ---
Pt found sitting on the side of the bed with his IV pump on the other side of the room with all fluids taken down. Upon inspection of the IV tubing pts port needle has been removed. Pt denies any kind of pain and port site appears unremarkable. Dr. Garza notified.
[2020-12-24 11:12] VITALS: BP 128/71; PULSE 88; RESP 16; TEMP 36.9; O2SAT 95
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
--- NOTE | 2020-12-24 11:49 | PC.CHAP ---
Pastoral Care Encounter/Spiritual Assessment Type of Contact [] Declined filter changer visit [] Patient/Family/Request visit [] Outpatient visit [] Follow-up visit [] Physician referral [] Code/Alert [x] Routine visit [] Staff referral [] Actively dying [] Patient sleeping [] Family support [] [] Out of room [] Palliative care [] [] Receiving care in room [] Pre-surgical visit [] Trauma [] Long length of stay [] ICU visit [] Other: Relational/Emotional Strength [] Patient feels connected with others/family/visitors/staff [x] Distress [] Loneliness/isolation [] Abandonment Spirituality of Patient [x] Person of Shanna [] Attends Spiritism of their Shanna [x] Believes in Prayer [] Reads Bible or Jainism materials [] There are Spiritual issues to be addressed Certified Medication Aide Interventions [x] Prayer [x] Active listening [] Non-anxious presence [] Spiritual/emotional support [] Crisis/trauma care [] Spiritual counseling [] Bereavement support [] Provided bereavement packet [] Provided Bible/devotional materials [] Provided toy/stuffed animal, coloring book to patient or family member [] Provided Communion [] Anointing/[place] [] Salvation [x] Completed spiritual assessment [] Other: Impact on Illness or Injury [] Angry [] Fearful [] Anxious [] Often cries [] Exhaustion [] Unable to work [] Unable to attend confucianist [] Unable to walk/stand [] Unable to read [] Unable to drive [] Unable to eat/drink [] Unable to sleep [] Unable to be with family [] Patient intubated [] Other: Summary Time spent with patient 15 min
[2020-12-24] MEDS: potassium chloride oral liq 20 mEq/15 mL UDC 40 MEQ PO (12:35)
[2020-12-24] MEDS: acetaminophen 325 mg Tablet 650 MG PO (12:35)
--- NOTE | 2020-12-24 16:13 | PC.RESP ---
SMOKING CESSATION AND PULMONARY REHAB INFORMATION SENT TO PATIENT.
[2020-12-24 16:24] VITALS: BP 128/71; PULSE 88; RESP 16; TEMP 36.9; O2SAT 95
== END 2020-12-24 14:41 | disposition hospice, home (50) | DRG 682 ==
LOC: ER 02:32 → MEDSURG 02:47
PROVIDERS: Admitting Provider Hospitalist; Emergency Provider Emergency Medicine; PCP Family Medicine; Visit Provider Internal Medicine
DX: N17.9 Acute kidney failure, unspecified (principal); I21.A1 Myocardial infarction type 2; G93.41 Metabolic encephalopathy; C34.91 Malignant neoplasm of unspecified part of right bronchus or lung; J44.9 Chronic obstructive pulmonary disease, unspecified; E87.6 Hypokalemia; E86.0 Dehydration; D72.829 Elevated white blood cell count, unspecified; I10 Essential (primary) hypertension; E78.5 Hyperlipidemia, unspecified; F17.210 Nicotine dependence, cigarettes, uncomplicated; Z79.891 Long term (current) use of opiate analgesic; Z79.82 Long term (current) use of aspirin; Z86.73 Personal history of transient ischemic attack (TIA), and cerebral infarction without residual deficits; Z92.21 Personal history of antineoplastic chemotherapy; Z63.0 Problems in relationship with spouse or partner
CPT/HCPCS: 36415; 36416; 36600; 51702; 70450; 71045; 80053; 80061; 81001; 82803; 82962; 83036; 83605; 83735; 83880; 84145; 84443; 84484; 85025; 85730; 87040; 93005; 93306; 96365; 96372; 96375; 97161; 97530; 99285; J0692; J1630; J1644; J3010; J7030